=== PATIENT | male | born 1935 | race Caucasian/White ===

== ENCOUNTER 2017-10-11 17:17 | Emergency (ER) | payer MEDICARE, OTHER ==
[~2017-10-11] VITALS: Ht 180.3 cm; Wt 70.8 kg
== END 2017-10-11 19:20 | disposition home or self-care (01) ==
LOC: FSED 17:17
DX: M17.12 Unilateral primary osteoarthritis, left knee (principal); Z88.0 Allergy status to penicillin; R03.0 Elevated blood-pressure reading, without diagnosis of hypertension; Z86.12 Personal history of poliomyelitis; C26.1 Malignant neoplasm of spleen
CPT/HCPCS: 99284

== ENCOUNTER 2018-09-13 19:25 | Inpatient (IN) | payer MEDICARE, OTHER ==
[~2018-09-13] VITALS: Ht 175.3 cm; Wt 93.4 kg
--- OUTSIDE RECORDS SUMMARY | 2018-09-13 19:29 | XMS REPORT | Continuity of Care Document ---
Author Author [facility] Address Unknown Phone Unavailable Problems Problem Status Onset Date Classification Date Reported Comments Source Medications Medication Details Route Status Patient Instructions Ordering Provider Order Date Source Allergies, Adverse Reactions, Alerts Substance Category Reaction Severity Reaction type Status Date Reported Comments Source Penicillin SWELLING Mild Allergy to Substance Active 06/17/[address] [facility] Immunizations Immunization Date Given Site Status Last Updated Comments Source Results Order Name Results Value Reference Range Date Interpretation Comments Source Vital Signs Vital Sign Value Date Comments Source Encounters Location Location Details Encounter Type Encounter Number Reason For Visit Attending Provider ADM Date DC Date Status Source Departed Emergency Room [id number] MARIANA VERMA MD 10/11/2017 10/11/[address] [facility] Procedures Procedure Code Date Perfomer Comments Source
--- OUTSIDE RECORDS SUMMARY | 2018-09-13 19:29 | XMS REPORT ---
Author [facility] Address Unknown Phone Unavailable Care Team Providers Care Stage Set Up Worker Name Role Phone Unavailable Unavailable Payers Payer Name Policy Type Policy Number Effective Date Expiration Date Problems This patient has no known problems. Allergies, Adverse Reactions, Alerts Allergy Name Allergy Type Status Severity Reaction(s) Onset Date Inactive Date Treating Clinician Comments No Known Allergies DA Active U 2018-03-25 00:00:00 Medications This patient has no known medications. Encounters Start Date/Time End Date/Time Encounter Type Admission Type Attending Clinicians Care Facility Care Department Encounter ID 2018-08-13 11:23:54 Outpatient [facility] [id number] 2018-08-12 00:31:00 2018-08-11 19:54:00 Inpatient [id number]
--- OUTSIDE RECORDS SUMMARY | 2018-09-13 19:29 | XMS REPORT | Clinical Summary ---
Author Author [facility] Organization [facility] Address Unknown Phone Unavailable Care Team Providers Care Commercial Credit Lead Name Role Phone Ernesto Leong MD PCP Allergies Comments Active Allergy Reactions Severity Noted Date Penicillins Hives 07/23/2015 Chills Rituximab Other (See Low 02/16/2016 Comments) Listlessness, low energy/malaise Sulfamethoxazole-Trimetho Other (See 03/21/2017 prim Comments) Medications End Date Status Medication Sig Dispensed Refills Start Date 05/21/2018 Discontinued ipratropium-albuterol Take 3 mL by 0 (DUO-NEB) 0.5-2.5 mg/mL nebulization nebulizer every 4 (four) hours as needed for wheezing. 05/21/2018 Discontinued nystatin (MYCOSTATIN) Take 500,000 0 100,000 unit/mL Units by suspension mouth every 6 (six) hours. Swish in mouth 05/21/2018 Discontinued morPHINE 4 mg/mL Infuse 4 mg 0 injection into a venous catheter every 6 (six) hours as needed for severe pain. 05/21/2018 Discontinued acetaminophen (TYLENOL) Take 650 mg 0 325 MG tablet by mouth every 6 (six) hours as needed for fever. 05/21/2018 Discontinued ondansetron in dextrose Infuse 4 mg 0 solution into a venous catheter every 6 (six) hours as needed. 05/21/2018 Discontinued potassium chloride Take 20 mEq 0 (KLOR-CON) 20 mEq packet by mouth daily as needed. 05/21/2018 Discontinued vancomycin 1 gram/250 mL Infuse 1,000 0 solution mg into a venous catheter every 12 (twelve) hours. 05/21/2018 Discontinued acetylcysteine (MUCOMYST) Take 400 mg 0 100 mg/mL (10 %) oral by mouth solution every 6 (six) hours. neb 05/21/2018 Discontinued [id number] Infuse 3.375 0 extrs (ZOSYN) 3.375 g into a gram/50 mL IVPB venous catheter every 8 (eight) hours. 06/03/2018 acetaminophen (TYLENOL) Take 2 0 325 MG tablet tablets (650 9 mg total) by mouth every 6 (six) hours as needed for fever for up to 30 days. 06/03/2018 ondansetron ODT Take 1 tablet 0 (ZOFRAN-ODT) 4 MG (4 mg total) 9 disintegrating tablet by mouth every 8 (eight) hours as needed for nausea or vomiting for up to 30 days. 05/14/2018 nystatin (MYCOSTATIN) Take 5 mL 0 100,000 unit/mL (500,000 9 suspension Units total) by mouth 4 (four) times a day for 10 days. Swish in mouth 05/09/2018 Discontinued tamsulosin (FLOMAX) 0.4 Take 1 30 capsule 0 mg capsule capsule (0.4 9 mg total) by mouth daily for 30 days. 06/03/2018 ipratropium-albuterol Take 3 mL by 0 (DUO-NEB) 0.5-2.5 mg/mL nebulization 9 nebulizer every 4 (four) hours as needed for wheezing for up to 30 days. 06/03/2018 enoxaparin (LOVENOX) 40 Inject 0.4 mL 12 mL 0 mg/0.4 mL syringe (40 mg total) 9 under the skin daily for 30 days. 06/03/2018 acetylcysteine (MUCOMYST) Take 4 mL by 0 200 mg/mL (20 %) nebulization 9 nebulizer solution 2 (two) times a day for 30 days. 06/03/2018 oxymetazoline (AFRIN) 2 sprays into 0 0.05 % nasal spray each nostril 9 2 (two) times a day as needed for congestion (for nose bleeds) for up to 30 days. 06/03/2018 zinc oxide-cod liver oil Apply 0 (DESITIN) 40 % paste topically 3 9 (three) times a day for 30 days. 06/04/2018 lidocaine (LIDODERM) 5 % Place 1 patch 30 patch 0 on the skin 9 daily for 30 days. Remove & Discard patch within 12 hours or as directed by 06/08/2018 tamsulosin (FLOMAX) 0.4 Take 1 60 capsule 0 mg capsule capsule (0.4 9 mg total) by mouth 2 (two) times a day for 30 days. 05/09/2018 silver nitrate 75-25 % Apply 0 applicators topically 9 once for 1 dose. 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 Last Filed Vital Signs Time Taken Vital Sign Reading 05/21/2018 4:07 PM [employer] Blood Pressure 109/53 05/21/2018 4:07 PM [employer] Pulse 94 05/21/2018 4:07 PM [employer] Temperature 36.7 C (98.1 F) 05/21/2018 4:07 PM [employer] Respiratory Rate 16 05/21/2018 4:07 PM [employer] Oxygen Saturation 96% - Inhaled Oxygen - Concentration 04/10/2018 12:06 PM [employer] Weight 70.5 kg (155 lb 8 oz) 04/10/2018 12:06 PM [employer] Height 180.3 cm (5' 11") 04/10/2018 12:06 PM [employer] Body Mass Index 21.69 Plan of Treatment Health Maintenance Due Date Last Done Comments SHINGLES VACCINES (#1) 1983 65+ PNEUMOCOCCAL VACCINE 1998 (1 of 2 - PCV13) PNEUMOCOCCAL 1998 POLYSACCHARIDE VACCINE AGE 65 AND OVER INFLUENZA VACCINE 11/29/2018 Implants Device Identifier Shelf Expiration Date Model / Serial / Lot Implanted Type Area Manufactur er [id number] / / Cook Celect [employer] Navalign Vascular N/A: N/A Watch-Sites Uniset Vena Cava Filter - Filter PERIPHERAL [id number] INTERVENTI Implanted: 04/11/2018 (Quantity not ON on file) Procedures Comments Procedure Name Priority Date/Time Associated Diagnosis HC COMPLETE BLD COUNT Routine 05/21/2018 W/AUTO DIFF 7:40 AM [employer] CBC WITH PLATELET AND Routine 05/15/2018 DIFFERENTIAL 6:00 AM [employer] ESTIMATED GFR Routine 05/15/2018 5:30 AM [employer] BASIC METABOLIC PANEL Routine 05/15/2018 5:30 AM [employer] HC COMPLETE BLD COUNT Routine 05/14/2018 W/AUTO DIFF 8:10 PM [employer] XR CHEST 1 VW PORTABLE Routine 05/10/2018 12:55 PM [employer] PREALBUMIN LEVEL Routine 05/09/2018 4:00 AM [employer] C-REACTIVE PROTEIN Routine 05/09/2018 4:00 AM [employer] SEDIMENTATION RATE Routine 05/09/2018 4:00 AM [employer] HEMOGLOBIN & HEMATOCRIT Routine 05/09/2018 4:00 AM [employer] PARTIAL THROMBOPLASTIN Routine 05/09/2018 TIME (PTT) 4:00 AM [employer] ESTIMATED GFR Routine 05/08/2018 3:18 AM [employer] HC COMPLETE BLD COUNT Routine 05/08/2018 W/AUTO DIFF 3:18 AM [employer] BASIC METABOLIC PANEL Routine 05/08/2018 3:18 AM [employer] POC GLUCOSE Routine 05/04/2018 9:14 PM [employer] ESTIMATED GFR Routine 05/04/2018 6:20 AM [employer] HC COMPLETE BLD COUNT Routine 05/04/2018 W/AUTO DIFF 6:20 AM [employer] BASIC METABOLIC PANEL Routine 05/04/2018 6:20 AM [employer] CONSULT TO OSTOMY CARE Routine 05/01/2018 NURSE 7:00 PM [employer] ESTIMATED GFR Routine 04/30/2018 5:05 AM [employer] MAGNESIUM LEVEL Routine 04/30/2018 5:05 AM [employer] HC COMPLETE BLD COUNT Routine 04/30/2018 W/AUTO DIFF 5:05 AM [employer] BASIC METABOLIC PANEL Routine 04/30/2018 5:05 AM [employer] CLOSTRIDIUM DIFFICILE Routine 04/28/2018 TOXIN 5:50 PM [employer] XR CHEST 1 VW PORTABLE Routine 04/25/2018 3:55 PM [employer] HC COMPLETE BLD COUNT Routine 04/23/2018 W/AUTO DIFF 5:35 AM [employer] ESTIMATED GFR Routine 04/23/2018 4:00 AM [employer] PHOSPHORUS LEVEL Routine 04/23/2018 4:00 AM [employer] MAGNESIUM LEVEL Routine 04/23/2018 4:00 AM [employer] BASIC METABOLIC PANEL Routine 04/23/2018 4:00 AM [employer] HC COMPLETE BLD COUNT Routine 04/21/2018 W/AUTO DIFF 4:35 AM [employer] ESTIMATED GFR Routine 04/21/2018 4:00 AM [employer] PHOSPHORUS LEVEL Routine 04/21/2018 4:00 AM [employer] MAGNESIUM LEVEL Routine 04/21/2018 4:00 AM [employer] BASIC METABOLIC PANEL Routine 04/21/2018 4:00 AM [employer] POC GLUCOSE Routine 04/20/2018 1:31 AM [employer] ESTIMATED GFR Routine 04/19/2018 5:50 AM [employer] MAGNESIUM LEVEL Routine 04/19/2018 5:50 AM [employer] BASIC METABOLIC PANEL Routine 04/19/2018 5:50 AM [employer] HC COMPLETE BLD COUNT Routine 04/19/2018 W/AUTO DIFF 5:50 AM [employer] XR CHEST 1 VW PORTABLE Routine 04/18/2018 10:27 AM [employer] ESTIMATED GFR Routine 04/18/2018 4:55 AM [employer] VANCOMYCIN LEVEL, RANDOM Routine 04/18/2018 4:55 AM [employer] MAGNESIUM LEVEL Routine 04/18/2018 4:55 AM [employer] BASIC METABOLIC PANEL Routine 04/18/2018 4:55 AM [employer] HC COMPLETE BLD COUNT Routine 04/18/2018 W/AUTO DIFF 4:55 AM [employer] POC GLUCOSE Routine 04/17/2018 3:40 PM [employer] POC GLUCOSE Routine 04/17/2018 12:19 PM [employer] POC GLUCOSE Routine 04/17/2018 7:28 AM [employer] RESPIRATORY PATHOGEN Routine 04/17/2018 PANEL 6:55 AM [employer] ESTIMATED GFR Routine 04/17/2018 4:00 AM [employer] PHOSPHORUS LEVEL Routine 04/17/2018 4:00 AM [employer] MAGNESIUM LEVEL Routine 04/17/2018 4:00 AM [employer] BASIC METABOLIC PANEL Routine 04/17/2018 4:00 AM [employer] ESTIMATED GFR Routine 04/17/2018 12:00 AM [employer] B NATRIURETIC PEPTIDE Routine 04/17/2018 12:00 AM [employer] HC COMPLETE BLD COUNT Routine 04/17/2018 W/AUTO DIFF 12:00 AM [employer] MAGNESIUM LEVEL Routine 04/17/2018 12:00 AM [employer] BASIC METABOLIC PANEL Routine 04/17/2018 12:00 AM [employer] URINALYSIS SCREEN AND Routine 04/17/2018 MICROSCOPY, WITH REFLEX 12:00 AM [employer] TO CULTURE URINE CULTURE Routine 04/17/2018 12:00 AM [employer] BLOOD CULTURE, AEROBIC & Routine 04/16/2018 ANAEROBIC 6:15 PM [employer] BLOOD CULTURE, AEROBIC & Routine 04/16/2018 ANAEROBIC 6:15 PM [employer] HC COMPLETE BLD COUNT Routine 04/16/2018 W/AUTO DIFF 5:10 PM [employer] POC GLUCOSE Routine 04/16/2018 3:30 PM [employer] XR CHEST 1 VW PORTABLE Routine 04/16/2018 2:37 PM [employer] ESTIMATED GFR Routine 04/16/2018 4:00 AM [employer] BASIC METABOLIC PANEL Routine 04/16/2018 4:00 AM [employer] IONIZED CALCIUM STAT 04/14/2018 8:35 AM [employer] MAGNESIUM LEVEL STAT 04/14/2018 8:35 AM [employer] POTASSIUM LEVEL STAT 04/14/2018 8:35 AM [employer] XR CERVICAL SPINE 1 VW STAT 04/13/2018 10:08 PM [employer] POC GLUCOSE Routine 04/13/2018 8:27 AM [employer] ESTIMATED GFR Routine 04/13/2018 5:45 AM [employer] MAGNESIUM LEVEL Routine 04/13/2018 5:45 AM [employer] BASIC METABOLIC PANEL Routine 04/13/2018 5:45 AM [employer] HC COMPLETE BLD COUNT Routine 04/13/2018 W/AUTO DIFF 5:45 AM [employer] URINALYSIS SCREEN AND Routine 04/12/2018 MICROSCOPY, WITH REFLEX 8:00 PM [employer] TO CULTURE URINE CULTURE Routine 04/12/2018 8:00 PM [employer] FL MODIFIED BARIUM Routine 04/12/2018 SWALLOW 4:02 PM [employer] US DUPLEX VENOUS UPPER Routine 04/12/2018 EXTREMITY LEFT 9:40 AM [employer] HC COMPLETE BLD COUNT Routine 04/12/2018 W/AUTO DIFF 4:20 AM [employer] PARTIAL THROMBOPLASTIN Routine 04/12/2018 TIME (PTT) 4:20 AM [employer] PROTHROMBIN TIME WITH INR Routine 04/12/2018 4:20 AM [employer] ESTIMATED GFR Routine 04/12/2018 4:00 AM [employer] MAGNESIUM LEVEL Routine 04/12/2018 4:00 AM [employer] BASIC METABOLIC PANEL Routine 04/12/2018 4:00 AM [employer] IR IVC FILTER PLACEMENT Routine 04/11/2018 4:18 PM [employer] B NATRIURETIC PEPTIDE Routine 04/11/2018 5:45 AM [employer] HC COMPLETE BLD COUNT Routine 04/11/2018 W/AUTO DIFF 5:45 AM [employer] PARTIAL THROMBOPLASTIN Routine 04/11/2018 TIME (PTT) 5:45 AM [employer] PROTHROMBIN TIME WITH INR Routine 04/11/2018 5:45 AM [employer] ESTIMATED GFR Routine 04/11/2018 4:00 AM [employer] PHOSPHORUS LEVEL Routine 04/11/2018 4:00 AM [employer] MAGNESIUM LEVEL Routine 04/11/2018 4:00 AM [employer] BASIC METABOLIC PANEL Routine 04/11/2018 4:00 AM [employer] MANUAL DIFFERENTIAL Routine 04/10/2018 4:37 AM [employer] ESTIMATED GFR Routine 04/10/2018 4:37 AM [employer] PARTIAL THROMBOPLASTIN Routine 04/10/2018 TIME (PTT) 4:37 AM [employer] PROTHROMBIN TIME WITH INR Routine 04/10/2018 4:37 AM [employer] PHOSPHORUS LEVEL Routine 04/10/2018 4:37 AM [employer] MAGNESIUM LEVEL Routine 04/10/2018 4:37 AM [employer] B NATRIURETIC PEPTIDE Routine 04/10/2018 4:37 AM [employer] BASIC METABOLIC PANEL Routine 04/10/2018 4:37 AM [employer] CBC WITH PLATELET AND Routine 04/10/2018 DIFFERENTIAL 4:37 AM [employer] FIBRINOGEN Routine 04/10/2018 4:37 AM [employer] D-DIMER Routine 04/10/2018 4:37 AM [employer] FL MODIFIED BARIUM Routine 04/09/2018 SWALLOW 11:07 AM [employer] URINALYSIS SCREEN AND Routine 04/09/2018 MICROSCOPY, WITH REFLEX 10:00 AM [employer] TO CULTURE GRAM STAIN Routine 04/09/2018 10:00 AM [employer] URINE CULTURE Routine 04/09/2018 10:00 AM [employer] US DUPLEX VENOUS LOWER Routine 04/08/2018 EXTREMITY BILATERAL 5:52 PM [employer] MRA NECK WO CONTRAST Routine 04/08/2018 3:30 PM [employer] MRA HEAD WO CONTRAST Routine 04/08/2018 3:12 PM [employer] MRI BRAIN WO CONTRAST Routine 04/08/2018 3:[address] HEAD WO CONTRAST STAT 04/08/2018 9:16 AM [employer] XR CHEST 1 VW PORTABLE Routine 04/08/2018 6:06 AM [employer] HC COMPLETE BLD COUNT Routine 04/08/2018 W/AUTO DIFF 3:01 AM [employer] ESTIMATED GFR Routine 04/08/2018 12:02 AM [employer] PROTHROMBIN TIME WITH INR Routine 04/08/2018 12:02 AM [employer] PARTIAL THROMBOPLASTIN Routine 04/08/2018 TIME (PTT) 12:02 AM [employer] CBC WITH PLATELET AND Routine 04/08/2018 DIFFERENTIAL 12:02 AM [employer] BASIC METABOLIC PANEL Routine 04/08/2018 12:[address] HEAD EXTERNAL STUDY Routine 04/04/2018 5:37 PM [employer] MRI HEAD EXTERNAL STUDY Routine 03/28/2018 2:[address] HEAD EXTERNAL STUDY Routine 03/25/2018 10:54 AM [employer] after 09/12/2017 Results * CBC with platelet and differential (05/21/2018 7:40 AM [employer]) Only the most recent of 18 results within the time period is included. WBC 3.59 (L) 4.50 - 11.00 k/uL [facility] RBC 3.35 (L) 4.40 - 6.00 m/uL [facility] HGB 11.1 (L) 14.0 - 18.0 g/dL [facility] HCT 34.5 (L) 41.0 - 51.0 % [facility] MCV 103.0 (H) 82.0 - 100.0 fL [facility] MCH 33.1 27.0 - 34.0 pg [facility] MCHC 32.2 31.0 - 37.0 g/dL [facility] RDW - SD 60.1 (H) 37.0 - 55.0 fL [facility] MPV 10.4 8.8 - 13.2 fL [facility] Platelet count 109 (L) 150 - 400 k/uL [facility] Nucleated RBC 0.00 /100 WBC [facility] Neutrophils 64.1 39.0 - 69.0 % [facility] Lymphocytes 23.4 (L) 25.0 - 45.0 % [facility] Monocytes 6.1 0.0 - 10.0 % [facility] Eosinophils 2.8 0.0 - 5.0 % [facility] Basophils 1.1 (H) 0.0 - 1.0 % [facility] Immature granulocytes 2.5 (H)Comment: "Immature 0.0 - 1.0 % [facility] granulocytes" (promyelocytes, HOSPITAL myelocytes, metamyelocytes) Specimen Blood Performing Organization Address City/[facility]/Zipcode Phone Number [facility] [place] [address] PATHOLOGY AND GENOMIC MEDICINE [address] * Estimated GFR (05/15/2018 5:30 AM [employer]) Only the most recent of 16 results within the time period is included. Estimated GFR >=90 mL/min/1.73 m2 [facility] Comment: HOSPITAL CatergoryUnitsInte rpretation G1 >=90 Normal or high G2 60-89Mildly decreased [id number] Mildly to moderately decreased [id number] Moderately to severely decreased G4 15-29Severely decreased G5 <15Kidney failure The eGFR was calculated using the Chronic Kidney Disease Epidemiology Collaboration (CKD-EPI) equation. Interpretation is based on recommendations of the National Kidney Foundation-Kidney Disease Outcomes Quality Initiative (NKF-KDOQI) published in 2014. Specimen Plasma specimen Performing Organization Address City/State/Zipcode Phone Number [facility] DEPARTMENT OF [address] [place] [address] PATHOLOGY AND GENOMIC MEDICINE [address] * Basic metabolic panel (05/15/2018 5:30 AM [employer]) Only the most recent of 16 results within the time period is included. Sodium 133 (L) 135 - 148 mEq/L [facility] Potassium 3.9 3.5 - 5.0 mEq/L [facility] Chloride 100 98 - 112 mEq/L [facility] CO2 23 (L) 24 - 31 mEq/L [facility] Anion gap 10@ANIO 7 - 15 mEq/L [facility] BUN 11 8 - 23 mg/dL [facility] Creatinine 0.51 (L) 0.70 - 1.20 mg/dL [facility] Glucose 100 (H) 65 - 99 mg/dL [facility] Calcium 9.2 8.8 - 10.2 mg/dL [facility] Specimen Plasma specimen Performing Organization Address City/[facility]ode Phone Number [facility] DEPARTMENT OF [address] [place] [address] PATHOLOGY AND GENOMIC MEDICINE [address] * XR Chest 1 Vw Portable (05/10/2018 12:55 PM [employer]) Only the most recent of 5 results within the time period is included. Narrative Performed At EXAMINATION:[facility]ST [facility]:Shortness of breath COMPARISON:Most Recent Prior at [facility] IMPRESSION: Heart is normal in size. No focal infiltrates. Minimal basilar scarring or atelectasis. No pneumothorax or effusion. Diffuse osteopenia. [facility]-[id number] Procedure Note Interface, Radiology Results Incoming - 05/10/2018 1:08 PM [employer] EXAMINATION: XR CHEST 1 VW PORTABLE CLINICAL HISTORY: Shortness of breath COMPARISON: Most Recent Prior at [facility] IMPRESSION: Heart is normal in size. No focal infiltrates. Minimal basilar scarring or atelectasis. No pneumothorax or effusion. Diffuse osteopenia. [facility]-[id number] Performing Organization Address [facility] Centercode Phone Number [facility] [address] [place] [address] * Hemoglobin & hematocrit (05/09/2018 4:00 AM [employer]) HGB 11.1 (L) 14.0 - 18.0 g/dL [facility] HCT 33.9 (L) 41.0 - 51.0 % [facility] Specimen Blood Performing Organization Address City/[facility]/Zipcode Phone Number [facility] DEPARTMENT OF [address] [place] [id number] PATHOLOGY AND GENOMIC MEDICINE [address] * Partial thromboplastin time, activated (05/09/2018 4:00 AM [employer]) Only the most recent of 5 results within the time period is included. PTT 28.6 23.0 - 36.0 sec [facility] Comment: HOSPITAL PTT therapeutic range for unfractionated heparin is 61.0-112.0 seconds which corresponds to Anti-Xa 0.3-0.7 U/ml. Specimen Blood Performing Organization Address City/State/Zipcode Phone Number [facility] [place] [address] PATHOLOGY AND [facility] MEDICINE [address] * Sedimentation rate (05/09/2018 4:00 AM [employer]) Sedimentation rate 12 (H) 0 - 10 mm/hr [facility] Specimen Blood Performing Organization Address City/[facility] Centercode Phone Number [facility] [place] [address] [address] * C-reactive protein (05/09/2018 4:00 AM [employer]) CRP 0.76 (H) 0.00 - 0.50 mg/dL [facility] Specimen Plasma specimen Performing Organization Address City/[facility] Centercode Phone Number [facility] [place] [address] PATHOLOGY AND [facility] [address] * Prealbumin level (05/09/2018 4:00 AM [employer]) Prealbumin 15 (L) 16 - 32 mg/dL [facility] Specimen Serum Performing Organization Address [facility] Phone Number [facility] [place] [address] PATHOLOGY AND [facility]IC[facility] [address] * POC glucose (05/04/2018 9:14 PM [employer]) Only the most recent of 7 results within the time period is included. POC glucose 108 (H) 65 - 99 mg/dL [facility] Comment: [facility] Notified RN Meter ID: [id number] Supervisor Claims: Manda Sun Performing Organization Address City/[facility]/Zipcode Phone Number [facility] [place] [address] PATHOLOGY AND GENOMIC MEDICINE [address] * Magnesium level (04/30/2018 5:05 AM [employer]) Only the most recent of 12 results within the time period is included. Magnesium 1.9 1.6 - 2.4 mg/dL [facility] Specimen Plasma specimen Performing Organization Address City/[facility] Centercode Phone Number [facility] [place] [address] PATHOLOGY AND [facility] [address] * C difficile toxin (04/28/2018 5:50 PM [employer]) Clostridium difficile No Clostridium difficle toxin [facility] Comment: Specimen Information Specimen Source: Stool Specimen Site: Not otherwise specified Specimen Stool - Not otherwise specified Performing Organization Address City/[facility] Centercode Phone Number [facility] [place] [address] PATHOLOGY AND [facility] [address] * Phosphorus level (04/23/2018 4:00 AM [employer]) Only the most recent of 5 results within the time period is included. Phosphorus 2.9 2.4 - 4.5 mg/dL [facility] Specimen Plasma specimen Performing Organization Address City/[facility] Centercode Phone Number [facility] [place] [address] PATHOLOGY AND [facility] MED[facility] [address] * Vancomycin level, random (04/18/2018 4:55 AM [employer]) Vancomycin, random 12.0 ug/mL [facility] Specimen Serum Performing Organization Address [facility] Phone Number [facility] [place] [address] PATHOLOGY AND GENOMIC MEDICINE [address] * Respiratory pathogen panel (04/17/2018 6:55 AM [employer]) Respiratory pathogen Negative for all pathogens [facility] panel tested: HOSPITAL Negative for Adenovirus Negative for Coronavirus HKU1 Negative for Coronavirus NL63 Negative for Coronavirus 229E Negative for Coronavirus OC43 Negative for Human Metapneumovirus Negative for Rhinovirus/Enterovirus Negative for Influenza A Negative for Influenza A/H1 Negative for Influenza A/H3 Negative for Influenza A/H1-2009 Negative for Influenza B Negative for Parainfluenza Virus 1 Negative for Parainfluenza Virus 2 Negative for Parainfluenza Virus 3 Negative for Parainfluenza Virus 4 Negative for Respiratory Syncytial Virus Negative for Bordetella pertussis Negative for Chlamydophila pneumoniae Negative for Mycoplasma pneumoniae This real-time PCR assay detects the presence of nucleic acids (RNA or DNA) for the respiratory pathogens listed. A result of "Not-detected" does not exclude the possibility of the presence of one or more pathogens at concentrations less than the detectable limits of the assay. Comment: Specimen Information Specimen Source: Nares Specimen Site: Not specified Specimen Nares - Not specified Performing Organization Address City/[facility] [place] [address] PATHOLOGY AND GENOMIC MEDICINE [address] * Urinalysis screen and microscopy, with reflex to culture (04/17/2018 12:00 AM SUPERVISOR SPEECH) Only the most recent of 3 results within the time period is included. Specimen site Clean catch [facility] Color, UA Yellow [facility] Appearance, UA Clear [facility] Specific gravity, UA 1.013 1.001 - 1.035 [facility] pH, UA 6.0 5.0 - 8.5 [facility] Protein, UA Negative Negative [facility] Glucose, UA Negative Negative [facility] Ketones, UA Negative Negative [facility] Bilirubin, UA Negative Negative [facility] Blood, UA Negative Negative [facility] Nitrite, UA Negative Negative [facility] Urobilinogen, UA 4.0 (A) <2.0 [facility] Leukocyte esterase, UA Negative Negative [facility] Epithelial cells, UA 1 /HPF [facility] WBC, UA 3 (H) 0 - 1 /HPF [facility] RBC, UA 2 0 - 5 /HPF [facility] Bacteria, UA None seen None seen [facility] Yeast, UA Few (A) [facility] Yeast with pseudohyphae, None seen [facility] Specimen Urine Performing Organization Address City/[facility] [place] [address] PATHOLOGY AND GENOMIC MEDICINE [address] * Urine culture (04/17/2018 12:00 AM SUPERVISOR SPEECH) Only the most recent of 3 results within the time period is included. Urine culture SEE COMMENTComment: [facility] Bacteriuria screen negative. HOSPITAL Performing Organization Address City/[facility] Cent[facility]ode Phone Number [facility] [place] [address] PATHOLOGY AND [facility] MEDICINE [address] * B natriuretic peptide (04/17/2018 12:00 AM SUPERVISOR SPEECH) Only the most recent of 3 results within the time period is included. BNP 243 (H) 0 - 100 pg/mL [facility] Specimen Blood Performing Organization Address [facility] Centercode Phone Number [facility] [place] [address] PATHOLOG[address] * Blood culture, aerobic & anaerobic (04/16/2018 6:15 PM SUPERVISOR SPEECH) Only the most recent of 2 results within the time period is included. Blood culture isolate No growth after 5 days of [facility] incubation. HOSPITAL Comment: Specimen Information Specimen Source: Blood Specimen Site: Antecubital, right Specimen Blood - Antecubital, right Performing Organization Address [facility] Centercowv Phone Number [facility] [place] [address] PATHOLOGY [address] * Potassium level (04/14/2018 8:35 AM SUPERVISOR SPEECH) Potassium 4.7 3.5 - 5.0 mEq/L [facility] Specimen Plasma specimen Performing Organization Address [facility] Centercode Phone Number [facility] [place] [address] PATHOLOGY [address] * Ionized calcium (04/14/2018 8:35 AM SUPERVISOR SPEECH) pH 7.48 [facility] Ionized calcium 0.98 (L) 1.11 - 1.32 mmol/L [facility] Specimen Plasma specimen Performing Organization Address [facility] Centercode Phone Number [facility] [place] [address] PATHOLOGY AND [facility] MEDICINE [address] * XR Cervical Spine 1 Vw (04/13/2018 10:08 PM SUPERVISOR SPEECH) Narrative Performed At EXAMINATION:[facility]: Neck paininitial exam COMPARISON: None. FINDINGS: A single frontal view of the cervical spine obtained. Multilevel degenerative changes. No obvious fracture. IMPRESSION: Single frontal view demonstrating multilevel degenerative change. No obvious fracture. [facility]-[id number] Procedure Note Interface, Radiology Results Incoming - 04/13/2018 10:18 PM SUPERVISOR SPEECH EXAMINATION: XR CERVICAL SPINE 1 VW CLINICAL HISTORY: Neck pain initial exam COMPARISON: None. FINDINGS: A single frontal view of the cervical spine obtained. Multilevel degenerative changes. No obvious fracture. IMPRESSION: Single frontal view demonstrating multilevel degenerative change. No obvious fracture. [facility]-[id number] Performing Organization Address [facility] Phone Number [facility] [address] [place] [address] * [place] Modified Barium Swallow (04/12/2018 4:02 PM SUPERVISOR SPEECH) Only the most recent of 2 results within the time period is included. Narrative Performed At EXAMINATION:[place] MODIFIED BARIUM SWALLOW [facility] CLINICAL HISTORY:Dysphagiaknown cause COMPARISON:April 09, 2018 Fluoroscopy time: 2.3 minutes FINDINGS: The patient was given multiple consistencies of barium. The swallowing act was normal. There is silent aspiration with thin consistency barium. Laryngeal penetration was seen with nectar consistency. IMPRESSION: Silent aspiration with thin liquids. Please refer to Speech Pathology report for further details. [facility]-[id number] Procedure Note Interface, Radiology Results Incoming - 04/12/2018 6:03 PM SUPERVISOR SPEECH EXAMINATION: [place] MODIFIED BARIUM SWALLOW CLINICAL HISTORY: Dysphagia known cause COMPARISON: April 09, 2018 Fluoroscopy time: 2.3 minutes FINDINGS: The patient was given multiple consistencies of barium. The swallowing act was normal. There is silent aspiration with thin consistency barium. Laryngeal penetration was seen with nectar consistency. IMPRESSION: Silent aspiration with thin liquids. Please refer to Speech Pathology report for further details. [facility]-[id number] Performing Organization Address [facility] Phone Number [facility] [address] [place] [address] * Us duplex venous upper extremity (04/12/2018 9:40 AM SUPERVISOR SPEECH) Narrative Performed At [facility] Vascular Ultrasound Laboratory Upper Extremity Venous Report [address] [facility] [address], [place] [address] Pat.Name:LORI REID Pat.ID:[id number] .Date: 04/12/2018Refer.MD:TYREE CABRERA MD Exam Time: 9:25:00 AMStudy Type:UE Venous DOBAge:1935,82Y Sex: MALE Sonogrphr: Pranay Beavers, RDMS, RVTPat. Stat.:Inpatient Room:[place] [address] TapeVol: , CPT - 4: 01027 Echo Event ID:[id number] Order ID:[id number] Reason for Study:Left upper extremity redness of the distal forearm. 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 Procedures:Colorflow, Grayscale/2D, Pulsed wave Doppler Race:C SUMMARY: DUPLEX SCAN OBSERVATIONS Right Left IJ____ Normal SubclavianNormal Normal Axillary____ Normal Brachial____ Normal Basilic____ Normal Cephalic____ Not Visualized Cephalic ForearmObstructed/Focal LEFT: Focal non-compressibility with soft echogenic material noted within the cephalic vein at the distal forearm/wrist; Doppler signals are absent. Otherwise, all other visualized veins demonstrate normal compressibility with no evidence of echogenic material in the lumen; colorflow is normal. PRELIMINARY FINDINGS 1.Superficial, focal venous thrombosis noted in the left distal cephalic vein at the wrist. 2.Technically difficult study due to bony anatomy and lethargic state. PHYSICIAN INTERPRETATION Venous examination of the left upper extremity and neck demonstrated superficialvenous thrombosis in the left distal cephalic vein at the wrist. Signed 04/12/2018 11:22 AM Baldomero Urena MD, RPVI Procedure Note Interface, Radiology Results In - 04/12/2018 11:22 AM [facility] Vascular Ultrasound Laboratory Upper Extremity Venous Report [id number] [address] [facility].Name: LORI REID Pat.ID: [id number] .Date: 04/12/2018 Refer.MD: TYREE CABRERA MD Exam Time: 9:25:00 AM Study Type:UE Venous Age: 1 1935,82Y Sex: MALE Sonogrphr: Pranay Beavers RDMS, RVT Pat. Stat.:Inpatient Room: [place] [address] Tape Vol: , CPT - 4: 29059 Echo Event ID:[id number] Order ID: [id number] Reason for Study:Left upper extremity redness of the distal forearm. 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 Procedures:Colorflow, Grayscale/2D, Pulsed wave Doppler Race: C SUMMARY: DUPLEX SCAN OBSERVATIONS Right Left IJ ____ Normal Subclavian Normal Normal Axillary ____ Normal Brachial ____ Normal Basilic ____ Normal Cephalic ____ Not Visualized Cephalic Forearm Obstructed/Focal LEFT: Focal non-compressibility with soft echogenic material noted within the cephalic vein at the distal forearm/wrist; Doppler signals are absent. Otherwise, all other visualized veins demonstrate normal compressibility with no evidence of echogenic material in the lumen; colorflow is normal. PRELIMINARY FINDINGS 1. Superficial, focal venous thrombosis noted in the left distal cephalic vein at the wrist. 2. Technically difficult study due to bony anatomy and lethargic state. PHYSICIAN INTERPRETATION Venous examination of the left upper extremity and neck demonstrated superficial venous thrombosis in the left distal cephalic vein at the wrist. Signed 04/12/2018 11:22 AM Baldomero Urena MD, RPVI Performing Organization Address City/State/Zipcode Phone Number [facility] [address] [place] [address] * Prothrombin time with INR (04/12/2018 4:20 AM SUPERVISOR SPEECH) Only the most recent of 4 results within the time period is included. Prothrombin time 15.8 (H) 11.5 - 14.5 sec [facility] INR 1.3 [facility] Comment: HOSPITAL The International Normalized Ratio (INR) is a therapeutic monitoring tool for patients who are stable on oral anticoagulant therapy. An INR of 2.0-3.0 is suggested for deep vein thrombosis/pulmonary embolism. Specimen Blood Performing Organization Address City/State/Zipcode Phone Number [facility] DEPARTMENT OF [address] [place] [address] PATHOLOGY AND GENOMIC MEDICINE [facility] [address] [place] [address] HOSPITAL * IR IVC Filter Placement (04/11/2018 4:18 PM SUPERVISOR SPEECH) Narrative Performed At Procedure RADIANT 1. Inferior vena cavogram 2. Placement of a retrievable inferior vena cava filter Performing Radiologist Shamar Cruz MD Assistants None Anesthesia Type Lidocaine 1% was used for local anesthesia. Pre Procedure Diagnosis deep venous thrombosis. Anticoagulation is contraindicated. Post Procedure Diagnosis Status post inferior vena cava filter placement. Technique Written informed consent was obtained prior to the procedure. All elements of maximal sterile barrier technique were followed. The patient's right groin was sterilely prepared and draped in the routine manner. Lidocaine 1% was used for local anesthetic. Using real-time ultrasound guidance, a 21-gauge micropuncture needle was used to access the right common femoral vein. A 0.018 inch guidewire was advanced centrally under fluoroscopy. The needle was removed, and a micropuncture sheath system was then placed over the guidewire. The inner dilator and guidewire were then removed, and a 0.035 inch J-wire was advanced through the micropuncture sheath and into the inferior vena cava under fluoroscopy. The micropuncture sheath was removed and a 5-Slovak pigtail catheter was then placed over the guidewire and advanced into the low inferior vena cava. An inferior vena cavagram was then performed with injection of contrast. Exchange was then made for the delivery system for Celect retrievable inferior vena cava filter. Using the filter deployment device, the Celect filter was advanced, positioned, and deployed within the infrarenal inferior vena cava. The delivery sheath was removed and hemostasis was achieved with manual compression. The patient tolerated the procedure well. Radiation Dose: Ka,r=111 mGy Complications None Specimens Removed None Estimated Blood Loss Less than 1 mL Blood/Blood Products Administered None Grafts/Implants As described in the above report Findings 1. Ultrasound shows an anechoic and compressible right common femoral vein. 2. Inferior vena cavogram demonstrates a normal caliber inferior vena cava. There is no caval thrombus. Impression: Successful placement of a Celect retrievable inferior vena cava filter within the infrarenal inferior vena cava. [facility]-[id number] Procedure Note [facility], Radiology Results Incoming - 04/11/2018 5:42 PM SUPERVISOR SPEECH Procedure 1. Inferior vena cavogram 2. Placement of a retrievable inferior vena cava filter Performing Radiologist Shamar Cruz MD Assistants None Anesthesia Type Lidocaine 1% was used for local anesthesia. Pre Procedure Diagnosis deep venous thrombosis. Anticoagulation is contraindicated. Post Procedure Diagnosis Status post inferior vena cava filter placement. Technique Written informed consent was obtained prior to the procedure. All elements of maximal sterile barrier technique were followed. The patient's right groin was sterilely prepared and draped in the routine manner. Lidocaine 1% was used for local anesthetic. Using real-time ultrasound guidance, a 21-gauge micropuncture needle was used to access the right common femoral vein. A 0.018 inch guidewire was advanced centrally under fluoroscopy. The needle was removed, and a micropuncture sheath system was then placed over the guidewire. The inner dilator and guidewire were then removed, and a 0.035 inch J-wire was advanced through the micropuncture sheath and into the inferior vena cava under fluoroscopy. The micropuncture sheath was removed and a 5-Slovak pigtail catheter was then placed over the guidewire and advanced into the low inferior vena cava. An inferior vena cavagram was then performed with injection of contrast. Exchange was then made for the delivery system for Celect retrievable inferior vena cava filter. Using the filter deployment device, the Celect filter was advanced, positioned, and deployed within the infrarenal inferior vena cava. The delivery sheath was removed and hemostasis was achieved with manual compression. The patient tolerated the procedure well. Radiation Dose: Ka,r=111 mGy Complications None Specimens Removed None Estimated Blood Loss Less than 1 mL Blood/Blood Products Administered None Grafts/Implants As described in the above report Findings 1. Ultrasound shows an anechoic and compressible right common femoral vein. 2. Inferior vena cavogram demonstrates a normal caliber inferior vena cava. There is no caval thrombus. Impression: Successful placement of a Celect retrievable inferior vena cava filter within the infrarenal inferior vena cava. [facility]-[id number] Performing Organization Address City/[facility]/Zipcode Phone Number [facility] [address] [place] [address] * Manual differential (04/10/2018 4:37 AM SUPERVISOR SPEECH) Manual differential PERFORMED [facility] Neutrophils 74.0 (H) 39.0 - 69.0 % [facility] Lymphocytes 25.0 25.0 - 45.0 % [facility] Monocytes 1.0 0.0 - 10.0 % [facility] Eosinophils 0.0 0.0 - 5.0 % [facility] Basophils 0.0 0.0 - 1.0 % [facility] Metamyelocytes 0 % [facility] Promyelocytes 0 % [facility] Platelet slide review Decreased (A) [facility] Anisocytosis Moderate [facility] Polychromasia Moderate [facility] Ovalocytes Moderate [facility] Performing Organization Address City/[facility] Phone Number [facility] DEPARTMENT OF [address] [place] [address] PATHOLOGY AND GENOMIC MEDICINE [address] * Fibrinogen (04/10/2018 4:37 AM SUPERVISOR SPEECH) Fibrinogen 313 200 - 450 mg/dL [facility] Specimen Blood Performing Organization Address City/[facility] Phone Number [facility] DEPARTMENT OF [address] [place] [address] PATHOLOGY AND [facility] MEDICINE [address] * D-dimer (04/10/2018 4:37 AM SUPERVISOR SPEECH) D-dimer 14.49 (H) 0.00 - 0.40 ug/mL FEU [facility] Comment: HOSPITAL Units are ug/ml Fibrinogen Equivalent Unit. When combined with low clinical probability, D-dimer results of less than 0.5 ug/ml FEU have a good negativepredictive value in excluding PE or DVT. For D-dimer results greater than 0.5ug/ml FEU further testing is indicated if PE or DVT is suspectedclinically. Elevated D-dimer results have been reported in DVT, PE, and DIC cases and may indicate the presence of a clot. D-dimer results may be elevated due to old age, , inflammatory diseases, trauma, post-operative states, sepsis, and malignancies. Specimen Blood Performing Organization Address City/[facility]/Zipcode Phone Number [facility] DEPARTMENT OF [address] [place] [address] PATHOLOGY AND GENOMIC MEDICINE [facility] [address] [place] [address] * Gram stain (04/09/2018 10:00 AM SUPERVISOR SPEECH) Gram stain result No WBC's or organisms seen. [facility] Comment: HOSPITAL Specimen Information Specimen Source: Urine Specimen Site: [place] Specimen Urine - [place] Performing Organization Address [facility]/Zipcode Phone Number [facility] DEPARTMENT OF [address] [place] [address] PATHOLOGY AND GENOMIC MEDICINE [facility] [address] [place] [address] * Us duplex venous lower extremity (04/08/2018 5:52 PM SUPERVISOR SPEECH) Narrative Performed At [facility] Vascular Ultrasound Laboratory Lower Extremity Venous Report [address] [place] [address] Pat.Name:LORI REID Ariel Pat.ID:[id number] .Date: 04/08/2018 Refer.MD:TYREE CABRERA MD Exam Time: 5:18:00 PMStudy Type:LE Venous DOBAge:1935,82Y Sex: MALE Sonogrphr: Howard Almeida RVT Pat. Stat.:Inpatient Room:[id number]: , CPT - 4: 99368 Echo Event ID:[id number] Order ID:[id number] Reason for Study:Leg edema and immobility Procedures:Colorflow, Grayscale/2D, Pulsed wave Doppler Race:C SUMMARY: DUPLEX SCAN OBSERVATIONS Deep VeinsSuperficial Veins RightLeft RightLeft GSV (prox) NormalNormal CFV Partial/MobileNormal (above knee) Femoral Normal Normal GSV (dist) Normal Normal Profunda Normal Normal (below knee) Popliteal Normal Normal PT (prox) Normal NormalSSV Normal Not Visualized PT (dist) Normal Normal Peroneal Normal Normal RIGHT: There is partial mobile material observed within the common femoral vein. There is normal compressibility with no evidence of echogenic material noted within the lumen of the remaining visualized veins. LEFT:There is normal compressibility with no evidence of echogenic material noted within the lumen of the visualized veins. Colorflow and Doppler signals are normal. PRELIMINARY FINDINGS 1. Partial mobile thrombus in the right common femoral vein PHYSICIAN INTERPRETATION Venous examination of the both lower extremities demonstrated partial mobile thrombus in the right common femoral vein . Signed 04/08/2018 09:53 PM Baldomero Urena MD, RPVI Procedure Note Interface, Radiology Results In - 04/08/2018 9:53 PM [facility] Vascular Ultrasound Laboratory Lower Extremity Venous Report [address] [place] [address] Pat.Name: LORI REID Pat.ID: [id number] St.Date: 04/08/2018 Refer.MD: TYREE CABRERA MD Exam Time: 5:18:00 PM Study Type:LE Venous Age: 1 1935,82Y Sex: MALE Sonogrphr: Howard Almeida RVT Pat. Stat.:Inpatient Room: [address] Tape Vol: VB, CPT - 4: 26697 Echo Event ID:[id number] Order ID: [id number] Reason for Study:Leg edema and immobility Procedures:Colorflow, Grayscale/2D, Pulsed wave Doppler Race: C SUMMARY: DUPLEX SCAN OBSERVATIONS Deep Veins Superficial Veins Right Left Right Left GSV (prox) Normal Normal CFV Partial/Mobile Normal (above knee) Femoral Normal Normal GSV (dist) Normal Normal Profunda Normal Normal (below knee) Popliteal Normal Normal PT (prox) Normal Normal SSV Normal Not Visualized PT (dist) Normal Normal Peroneal Normal Normal RIGHT: There is partial mobile material observed within the common femoral vein. There is normal compressibility with no evidence of echogenic material noted within the lumen of the remaining visualized veins. LEFT:There is normal compressibility with no evidence of echogenic material noted within the lumen of the visualized veins. Colorflow and Doppler signals are normal. PRELIMINARY FINDINGS 1. Partial mobile thrombus in the right common femoral vein PHYSICIAN INTERPRETATION Venous examination of the both lower extremities demonstrated partial mobile thrombus in the right common femoral vein . Signed 04/08/2018 09:53 PM Baldomero Urena MD, RPVI Performing Organization Address [facility] Phone Number [facility] [address] [place] [address] * MRA Neck Wo Contrast (04/08/2018 3:30 PM SUPERVISOR SPEECH) Narrative Performed At EXAMINATION:MRA NECK WO CONTRAST [facility] CLINICAL HISTORY:previous ICH COMPARISON:None. IMPRESSION: 3-D reconstructions are processed off-line. No narrowing by NASCET criteria of the cervical internal carotid arteries. No hemodynamically significant narrowing of the distal common carotid arteries or visualized extracranial vertebral arteries. [facility]-[id number] Procedure Note Interface, Radiology Results Incoming - 04/08/2018 4:01 PM SUPERVISOR SPEECH EXAMINATION: MRA NECK WO CONTRAST CLINICAL HISTORY: previous ICH COMPARISON: None. IMPRESSION: 3-D reconstructions are processed off-line. No narrowing by NASCET criteria of the cervical internal carotid arteries. No hemodynamically significant narrowing of the distal common carotid arteries or visualized extracranial vertebral arteries. [facility]-[id number] Performing Organization Address [facility] [place] Phone Number [facility] [address] [place] [address] * MRA Head Wo Contrast (04/08/2018 3:12 PM SUPERVISOR SPEECH) Narrative Performed At [facility] EXAMINATION:MRA HEAD WO CONTRAST CLINICAL HISTORY:previous ICH COMPARISON:None. IMPRESSION: 3-D reconstructions were processed off-line. Large right cerebral hemisphere parenchymal hematoma displaces the right MCA branches without evidence of significant narrowing. No focal narrowing, aneurysmal dilatation or vascular malformation of the [place] vessels. [id number] Procedure Note Interface, Radiology Results Incoming - 04/08/2018 4:06 PM SUPERVISOR SPEECH EXAMINATION: MRA HEAD WO CONTRAST CLINICAL HISTORY: previous ICH COMPARISON: None. IMPRESSION: 3-D reconstructions were processed off-line. Large right cerebral hemisphere parenchymal hematoma displaces the right MCA branches without evidence of significant narrowing. No focal narrowing, aneurysmal dilatation or vascular malformation of the [place] vessels. [id number] Performing Organization Address [facility] Phone [facility] [address] [place] [address] * MRI Brain Wo Contrast (04/08/2018 3:00 PM SUPERVISOR SPEECH) Narrative Performed At EXAMINATION:[facility]:ICH COMPARISON:April 08, 2018 Findings: Given differences in modalities, no significant interval change in the large right cerebral hemisphere parenchymal hematoma measuring approximately 8.1 x 4.7 cm. Adjacent vasogenic edema. Mild intraventricular hemorrhage. Stable compression of the right lateral ventricle leftward midline shift measuring 5 mm. Scattered superficial areas of susceptibility in the infra and supratentorial brain likely due to chronic hemorrhagic insults concerning for amyloid angiopathy. Mild nonspecific periventricular T2/FLAIR signal hyperintensities may be due to amyloid angiopathy or chronic ischemic changes. IMPRESSION: Acute large right cerebral hemisphere parenchymal hematoma with stable mass effect. Mild intraventricular hemorrhage without hydrocephalus. Findings suggestive of amyloid angiopathy. [facility]-[id number] Procedure Note Interface, Radiology Results Incoming - 04/08/2018 4:05 PM SUPERVISOR SPEECH EXAMINATION: MRI BRAIN WO CONTRAST CLINICAL HISTORY: ICH COMPARISON: April 08, 2018 Findings: Given differences in modalities, no significant interval change in the large right cerebral hemisphere parenchymal hematoma measuring approximately 8.1 x 4.7 cm. Adjacent vasogenic edema. Mild intraventricular hemorrhage. Stable compression of the right lateral ventricle leftward midline shift measuring 5 mm. Scattered superficial areas of susceptibility in the infra and supratentorial brain likely due to chronic hemorrhagic insults concerning for amyloid angiopathy. Mild nonspecific periventricular T2/FLAIR signal hyperintensities may be due to amyloid angiopathy or chronic ischemic changes. IMPRESSION: Acute large right cerebral hemisphere parenchymal hematoma with stable mass effect. Mild intraventricular hemorrhage without hydrocephalus. Findings suggestive of amyloid angiopathy. [id number] Performing Organization Address [facility] Phone Number [facility] [address] [place] [address] * CT Head Wo Contrast (04/08/2018 9:16 AM SUPERVISOR SPEECH) Narrative Performed At EXAMINATION:[facility] CLINICAL [facility]:follow-up ICH COMPARISON:Outside head CT 04/04/2018 TECHNIQUE: Noncontrast head CT performed using radiation dose reduction techniques.Technical factors are evaluated and adjusted to ensure appropriate moderation of exposure.Automated dose management technology is applied to adjust radiation exposure while achieving a diagnostic quality image. FINDINGS: Interval evolution of large hemorrhage centered within the lateral aspect the right basal ganglia extending to the right temporal lobe spanning approximately 7.4 x 3.9 x 6.0 cm with an estimated volume of 90 cc. Extensive surrounding edema with near-complete effacement of the right lateral ventricle and leftward midline shift measuring 6 mm at the level of the foramen of Monro. Stable small intraventricular hemorrhage is noted layering in the occipital horns. Tiny suspected subarachnoid hemorrhage within the right sylvian fissure. Relatively mild chronic microvascular ischemic changes within the left cerebral hemisphere. Mild to moderate global cerebral and cerebellar volume loss. Status post bilateral lens extractions. No significant sinus inflammatory changes.Mastoid air cells are clear. IMPRESSION: Interval evolution of large hemorrhage within the right MCA territory with an estimated volume of 90 cc with extensive surrounding edema resulting in leftward midline shift measuring 6 mm at the level of the foramen of Monro which appears stable compared with 04/04/2018. Stable small intraventricular hemorrhage. [id number] Procedure Note Hm Interface, Radiology Results Incoming - 04/08/2018 9:29 AM SUPERVISOR SPEECH EXAMINATION: CT HEAD WO CONTRAST CLINICAL HISTORY: follow-up ICH COMPARISON: Outside head CT 04/04/2018 TECHNIQUE: Noncontrast head CT performed using radiation dose reduction techniques. Technical factors are evaluated and adjusted to ensure appropriate moderation of exposure. Automated dose management technology is applied to adjust radiation exposure while achieving a diagnostic quality image. FINDINGS: Interval evolution of large hemorrhage centered within the lateral aspect the right basal ganglia extending to the right temporal lobe spanning approximately 7.4 x 3.9 x 6.0 cm with an estimated volume of 90 cc. Extensive surrounding edema with near-complete effacement of the right lateral ventricle and leftward midline shift measuring 6 mm at the level of the foramen of Monro. Stable small intraventricular hemorrhage is noted layering in the occipital horns. Tiny suspected subarachnoid hemorrhage within the right sylvian fissure. Relatively mild chronic microvascular ischemic changes within the left cerebral hemisphere. Mild to moderate global cerebral and cerebellar volume loss. Status post bilateral lens extractions. No significant sinus inflammatory changes. Mastoid air cells are clear. IMPRESSION: Interval evolution of large hemorrhage within the right MCA territory with an estimated volume of 90 cc with extensive surrounding edema resulting in leftward midline shift measuring 6 mm at the level of the foramen of Monro which appears stable compared with 04/04/2018. Stable small intraventricular hemorrhage. [id number] Performing Organization Address City/State/Zipcode Phone Number [facility] [address] [place] [address] * CT Head External Study (04/04/2018 5:37 PM SUPERVISOR SPEECH) Only the most recent of 2 results within the time period is included. Narrative Performed At This exam was not acquired at a [facility] facility and has not been [facility] interpreted by a [facility] Provider.The exam was imported into our imaging system for comparisons purposes. Performing Organization Address City/State/Zipcode Phone Number [facility] [address] [place] [address] * MRI Head External Study (03/28/2018 2:05 PM SUPERVISOR SPEECH) Narrative Performed At This exam was not acquired at a [facility] facility and has not been [facility] interpreted by a [facility] Provider.The exam was imported into our imaging system for comparisons purposes. Performing Organization Address City/[facility]/Zipcode Phone Number [facility] [address] [place] [address] after 09/12/2017 Insurance Payer Benefit Subscriber ID Type Phone Address Plan / Group MEDICARE MEDICARE xxxxxxxxxxx Medicare [place], [place] PART A AND B [employer] xxxxxxxxxx Commercial L [employer] [place] Advance Directives Patient has advance care planning documents, and code status on file. For more i nformation, please contact: Dax Diana [address] [place] [address] Date Inactivated Comments Code Status Date Activated 05/21/2018 8:56 PM Modified Code 04/09/2018 4:15 PM Modified Code restrictions: No Intubation No Chest Compressions No Electrical Shocks Code Status decision reached by: Legal Surrogate Name of Surrogate: ginny Reid Surrogate Relation: 2. Spouse
[2018-09-13] MEDS ORDERED: VANCOMYCIN 1GM/NS 250 ML 250 ML IV ONE (19:54)
[2018-09-13] MEDS ORDERED: LEVOFLOXACIN 750MG/D5W 150ML 150 ML IV ONE (19:54)
[2018-09-13] MEDS ORDERED: ACETAMINOPHEN 1000 MG/100 ML IV ONE (19:54)
[2018-09-13] MEDS ORDERED: SODIUM CHLORIDE 0.9% 1000ML 1,000 ML ONE (19:58)
[2018-09-13] MEDS ORDERED: CEFEPIME 1GM/NS 0.9% 50 ML 50 ML IV ONE (20:00)
[2018-09-13] MEDS ORDERED: SODIUM CHLORIDE 0.9% 1000ML 1,000 ML IV ONE ×2 (20:00)
[2018-09-13] MEDS ORDERED: VANCOMYCIN 1GM/NS 250 ML 250 ML ONE (20:00)
[2018-09-13] MEDS ORDERED: NOREPINEPHRINE INJ 4MG/4ML 8 MG in DEXTROSE 5% 250ML 250 ML IV PRN (20:15)
[2018-09-13 20:32] LABS: BASOPHILS % 0.1 % (0.0-1.0); EOSINOPHILS % 0.1 % (0.0-6.0); HEMATOCRIT 26.8 % (38.2-49.6); LYMPHOCYTES # (AUTO) 1.2 (1.0-3.2); LYMPHOCYTES % 15.9 % (18.0-39.1); MEAN CORPUSCULAR HEMOGLOBIN 32.4 pg (28-32); MEAN CORPUSCULAR HGB CONC 33.6 g/dL (31-35); MEAN CORPUSCULAR VOLUME 96.4 fL (81-99); MONOCYTES # (AUTO) 0.5 (0.2-0.8); MONOCYTES % 5.9 % (4.4-11.3); NEUTROPHILS # (AUTO) 5.9 (2.1-6.9); NEUTROPHILS % 76.7 % (38.7-80.0); PLATELET COUNT 117 x10e3/uL (140-360); RED BLOOD COUNT 2.78 x10e6/uL (4.3-5.7); RED CELL DISTRIBUTION WIDTH 16.8 % (11.7-14.4)
[2018-09-13] MEDS: NOREPINEPHRINE 8 MG/D5W 250 ML 250 ML IV PRN (20:39)
[2018-09-13 20:40] LABS: INR 1.32
[2018-09-13 20:41] LABS: PARTIAL THROMBOPLASTIN TIME 33.4 seconds (23.8-35.5)
[2018-09-13 20:49] LABS: ALANINE AMINOTRANSFERASE 39 IU/L (0-55); ALBUMIN 2.6 g/dL (3.5-5.0); ALBUMIN/GLOBULIN RATIO 1.1 (0.8-2.0); ALKALINE PHOSPHATASE 853 IU/L (40-150); ANION GAP 13.7 mmol/L (8-16); BLOOD UREA NITROGEN 25 mg/dL (7-26); BUN/CREATININE RATIO 32 (6-25); CALCIUM 8.6 mg/dL (8.4-10.2); CARBON DIOXIDE 16 mmol/L (22-29); CHLORIDE 110 mmol/L (98-107); CREATINE KINASE 27 IU/L (30-200); CREATININE, SERUM 0.79 mg/dL (0.72-1.25); EST GLOMERULAR FILTRATION RATE > 60 ML/MIN (60-); GLUCOSE 107 mg/dL (74-118); POTASSIUM 3.7 mmol/L (3.5-5.1); SODIUM 136 mmol/L (136-145)
[2018-09-13] MEDS: SODIUM CHLORIDE 0.9% 1000ML 1,000 ML IV SCH (20:57)
[2018-09-13 21:01] LABS: CLARITY,URINE HAZY (CLEAR); COLOR,URINE YELLOW (YELLOW); KETONES,URINE NEGATIVE (NEGATIVE); LEUKOCYTE ESTERASE ,URINE NEGATIVE (NEGATIVE); NITRITE,URINE NEGATIVE (NEGATIVE); PROTEIN,URINE DIPSTICK TRACE (NEGATIVE)
[2018-09-13 21:02] LABS: AMORPHOUS SEDIMENT,URINE MANY (FEW); BACTERIA,URINE MODERATE /HPF; BILIRUBIN,URINE NEGATIVE (NEGATIVE); EPITHELIAL CELLS,URINE FEW /LPF; URINE UROBILINOGEN 0.2 mg/dL (0.2 - 1)
--- NOTE | 2018-09-13 21:35 | Diagnostic Imaging Report ---
Examination: Single AP view of the chest. COMPARISON: None. INDICATION: Sepsis, fever, CVC placement IMPRESSION: 1. Lines and Tubes: Right IJ central line has distal tip projecting at the cavoatrial junction. 2. Interstitial opacities extending from the nikki suggesting interstitial edema/fluid overload. Patchy airspace opacity in the retrocardiac region, which may represent atelectasis or pneumonia. 3. Prominence of the cardiac silhouette likely due to AP projection. Central pulmonary venous congestion. Atherosclerotic calcification of the aortic arch. 4. No acute bony abnormalities. Signed by: Dr. Brooks Vega M.D. on 09/13/2018 9:32 PM
--- NOTE | 2018-09-13 23:01 | Diagnostic Imaging Report ---
Examination: Single AP view of the chest. COMPARISON: Portable chest 09/13/2018 INDICATION: Sepsis, back Central line about 2 cm IMPRESSION: 1. Lines and Tubes: Right IJ central line has its distal tip projecting in the proximal to mid SVC. 2. No significant interval change in mild interstitial edema and central pulmonary venous congestion. Slight improvement in left retrocardiac opacity suggesting improved atelectasis. 3. Stable enlargement of the cardiac silhouette. 4. No acute bony abnormalities. Signed by: Dr. Brooks Vega M.D. on 09/13/2018 10:57 PM
--- OUTSIDE RECORDS SUMMARY | 2018-09-13 23:19 | XMS REPORT | Clinical Summary ---
Author Author [facility] Organization [facility] Address Unknown Phone Unavailable Care Team Providers Care Fisheries Enforcement Officer Name Role Phone Ernesto Leong MD PCP [...] every 6 (six) hours. 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 General Internal Medicine - Encounter 05/21/2018 N/A [...] Taken Vital Sign Reading 05/21/2018 4:07 PM LOCATOR SPECIALIST Blood Pressure 109/53 05/21/2018 4:07 PM LOCATOR SPECIALIST Pulse 94 05/21/2018 4:07 PM LOCATOR SPECIALIST Temperature 36.7 C (98.1 F) 05/21/2018 4:07 PM LOCATOR SPECIALIST Respiratory Rate 16 05/21/2018 4:07 PM LOCATOR SPECIALIST Oxygen Saturation 96% - Inhaled Oxygen - Concentration 04/10/2018 12:06 PM LOCATOR SPECIALIST Weight 70.5 kg (155 lb 8 oz) 04/10/2018 12:06 PM LOCATOR SPECIALIST Height 180.3 cm (5' 11") 04/10/2018 12:06 PM LOCATOR SPECIALIST Body Mass Index 21.69 Plan of Treatment Health Maintenance Due Date Last Done Comments SHINGLES VACCINES (#1) 1983 65+ PNEUMOCOCCAL VACCINE 1998 (1 of 2 - PCV13) PNEUMOCOCCAL 1998 POLYSACCHARIDE VACCINE AGE 65 AND OVER INFLUENZA VACCINE 11/29/2018 Implants Device Identifier Shelf Expiration Date Model / Serial / Lot Implanted Type Area Manufactur er [id number] / / Cook Celect [place] Navalign Vascular N/A: N/A Page365 Uniset Vena Cava Filter - Filter PERIPHERAL [id number] INTERVENTI Implanted: 04/11/2018 (Quantity not ON on file) Procedures Comments Procedure Name Priority Date/Time Associated Diagnosis HC COMPLETE BLD COUNT Routine 05/21/2018 W/AUTO DIFF 7:40 AM LOCATOR SPECIALIST CBC WITH PLATELET AND Routine 05/15/2018 DIFFERENTIAL 6:00 AM LOCATOR SPECIALIST ESTIMATED GFR Routine 05/15/2018 5:30 AM LOCATOR SPECIALIST BASIC METABOLIC PANEL Routine 05/15/2018 5:30 AM LOCATOR SPECIALIST HC COMPLETE BLD COUNT Routine 05/14/2018 W/AUTO DIFF 8:10 PM LOCATOR SPECIALIST XR CHEST 1 VW PORTABLE Routine 05/10/2018 12:55 PM LOCATOR SPECIALIST PREALBUMIN LEVEL Routine 05/09/2018 4:00 AM LOCATOR SPECIALIST C-REACTIVE PROTEIN Routine 05/09/2018 4:00 AM LOCATOR SPECIALIST SEDIMENTATION RATE Routine 05/09/2018 4:00 AM LOCATOR SPECIALIST HEMOGLOBIN & HEMATOCRIT Routine 05/09/2018 4:00 AM LOCATOR SPECIALIST PARTIAL THROMBOPLASTIN Routine 05/09/2018 TIME (PTT) 4:00 AM LOCATOR SPECIALIST ESTIMATED GFR Routine 05/08/2018 3:18 AM LOCATOR SPECIALIST HC COMPLETE BLD COUNT Routine 05/08/2018 W/AUTO DIFF 3:18 AM LOCATOR SPECIALIST BASIC METABOLIC PANEL Routine 05/08/2018 3:18 AM LOCATOR SPECIALIST POC GLUCOSE Routine 05/04/2018 9:14 PM LOCATOR SPECIALIST ESTIMATED GFR Routine 05/04/2018 6:20 AM LOCATOR SPECIALIST HC COMPLETE BLD COUNT Routine 05/04/2018 W/AUTO DIFF 6:20 AM LOCATOR SPECIALIST BASIC METABOLIC PANEL Routine 05/04/2018 6:20 AM LOCATOR SPECIALIST CONSULT TO OSTOMY CARE Routine 05/01/2018 NURSE 7:00 PM LOCATOR SPECIALIST ESTIMATED GFR Routine 04/30/2018 5:05 AM LOCATOR SPECIALIST MAGNESIUM LEVEL Routine 04/30/2018 5:05 AM LOCATOR SPECIALIST HC COMPLETE BLD COUNT Routine 04/30/2018 W/AUTO DIFF 5:05 AM LOCATOR SPECIALIST BASIC METABOLIC PANEL Routine 04/30/2018 5:05 AM LOCATOR SPECIALIST CLOSTRIDIUM DIFFICILE Routine 04/28/2018 TOXIN 5:50 PM LOCATOR SPECIALIST XR CHEST 1 VW PORTABLE Routine 04/25/2018 3:55 PM LOCATOR SPECIALIST HC COMPLETE BLD COUNT Routine 04/23/2018 W/AUTO DIFF 5:35 AM LOCATOR SPECIALIST ESTIMATED GFR Routine 04/23/2018 4:00 AM LOCATOR SPECIALIST PHOSPHORUS LEVEL Routine 04/23/2018 4:00 AM LOCATOR SPECIALIST MAGNESIUM LEVEL Routine 04/23/2018 4:00 AM LOCATOR SPECIALIST BASIC METABOLIC PANEL Routine 04/23/2018 4:00 AM LOCATOR SPECIALIST HC COMPLETE BLD COUNT Routine 04/21/2018 W/AUTO DIFF 4:35 AM LOCATOR SPECIALIST ESTIMATED GFR Routine 04/21/2018 4:00 AM LOCATOR SPECIALIST PHOSPHORUS LEVEL Routine 04/21/2018 4:00 AM LOCATOR SPECIALIST MAGNESIUM LEVEL Routine 04/21/2018 4:00 AM LOCATOR SPECIALIST BASIC METABOLIC PANEL Routine 04/21/2018 4:00 AM LOCATOR SPECIALIST POC GLUCOSE Routine 04/20/2018 1:31 AM LOCATOR SPECIALIST ESTIMATED GFR Routine 04/19/2018 5:50 AM LOCATOR SPECIALIST MAGNESIUM LEVEL Routine 04/19/2018 5:50 AM LOCATOR SPECIALIST BASIC METABOLIC PANEL Routine 04/19/2018 5:50 AM LOCATOR SPECIALIST HC COMPLETE BLD COUNT Routine 04/19/2018 W/AUTO DIFF 5:50 AM LOCATOR SPECIALIST XR CHEST 1 VW PORTABLE Routine 04/18/2018 10:27 AM LOCATOR SPECIALIST ESTIMATED GFR Routine 04/18/2018 4:55 AM LOCATOR SPECIALIST VANCOMYCIN LEVEL, RANDOM Routine 04/18/2018 4:55 AM LOCATOR SPECIALIST MAGNESIUM LEVEL Routine 04/18/2018 4:55 AM LOCATOR SPECIALIST BASIC METABOLIC PANEL Routine 04/18/2018 4:55 AM LOCATOR SPECIALIST HC COMPLETE BLD COUNT Routine 04/18/2018 W/AUTO DIFF 4:55 AM LOCATOR SPECIALIST POC GLUCOSE Routine 04/17/2018 3:40 PM LOCATOR SPECIALIST POC GLUCOSE Routine 04/17/2018 12:19 PM LOCATOR SPECIALIST POC GLUCOSE Routine 04/17/2018 7:28 AM LOCATOR SPECIALIST RESPIRATORY PATHOGEN Routine 04/17/2018 PANEL 6:55 AM LOCATOR SPECIALIST ESTIMATED GFR Routine 04/17/2018 4:00 AM LOCATOR SPECIALIST PHOSPHORUS LEVEL Routine 04/17/2018 4:00 AM LOCATOR SPECIALIST MAGNESIUM LEVEL Routine 04/17/2018 4:00 AM LOCATOR SPECIALIST BASIC METABOLIC PANEL Routine 04/17/2018 4:00 AM LOCATOR SPECIALIST ESTIMATED GFR Routine 04/17/2018 12:00 AM LOCATOR SPECIALIST B NATRIURETIC PEPTIDE Routine 04/17/2018 12:00 AM LOCATOR SPECIALIST HC COMPLETE BLD COUNT Routine 04/17/2018 W/AUTO DIFF 12:00 AM LOCATOR SPECIALIST MAGNESIUM LEVEL Routine 04/17/2018 12:00 AM LOCATOR SPECIALIST BASIC METABOLIC PANEL Routine 04/17/2018 12:00 AM LOCATOR SPECIALIST URINALYSIS SCREEN AND Routine 04/17/2018 MICROSCOPY, WITH REFLEX 12:00 AM LOCATOR SPECIALIST TO CULTURE URINE CULTURE Routine 04/17/2018 12:00 AM LOCATOR SPECIALIST BLOOD CULTURE, AEROBIC & Routine 04/16/2018 ANAEROBIC 6:15 PM LOCATOR SPECIALIST BLOOD CULTURE, AEROBIC & Routine 04/16/2018 ANAEROBIC 6:15 PM LOCATOR SPECIALIST HC COMPLETE BLD COUNT Routine 04/16/2018 W/AUTO DIFF 5:10 PM LOCATOR SPECIALIST POC GLUCOSE Routine 04/16/2018 3:30 PM LOCATOR SPECIALIST XR CHEST 1 VW PORTABLE Routine 04/16/2018 2:37 PM LOCATOR SPECIALIST ESTIMATED GFR Routine 04/16/2018 4:00 AM LOCATOR SPECIALIST BASIC METABOLIC PANEL Routine 04/16/2018 4:00 AM LOCATOR SPECIALIST IONIZED CALCIUM STAT 04/14/2018 8:35 AM LOCATOR SPECIALIST MAGNESIUM LEVEL STAT 04/14/2018 8:35 AM LOCATOR SPECIALIST POTASSIUM LEVEL STAT 04/14/2018 8:35 AM LOCATOR SPECIALIST XR CERVICAL SPINE 1 VW STAT 04/13/2018 10:08 PM LOCATOR SPECIALIST POC GLUCOSE Routine 04/13/2018 8:27 AM LOCATOR SPECIALIST ESTIMATED GFR Routine 04/13/2018 5:45 AM LOCATOR SPECIALIST MAGNESIUM LEVEL Routine 04/13/2018 5:45 AM LOCATOR SPECIALIST BASIC METABOLIC PANEL Routine 04/13/2018 5:45 AM LOCATOR SPECIALIST HC COMPLETE BLD COUNT Routine 04/13/2018 W/AUTO DIFF 5:45 AM LOCATOR SPECIALIST URINALYSIS SCREEN AND Routine 04/12/2018 MICROSCOPY, WITH REFLEX 8:00 PM LOCATOR SPECIALIST TO CULTURE URINE CULTURE Routine 04/12/2018 8:00 PM LOCATOR SPECIALIST FL MODIFIED BARIUM Routine 04/12/2018 SWALLOW 4:02 PM LOCATOR SPECIALIST US DUPLEX VENOUS UPPER Routine 04/12/2018 EXTREMITY LEFT 9:40 AM LOCATOR SPECIALIST HC COMPLETE BLD COUNT Routine 04/12/2018 W/AUTO DIFF 4:20 AM LOCATOR SPECIALIST PARTIAL THROMBOPLASTIN Routine 04/12/2018 TIME (PTT) 4:20 AM LOCATOR SPECIALIST PROTHROMBIN TIME WITH INR Routine 04/12/2018 4:20 AM LOCATOR SPECIALIST ESTIMATED GFR Routine 04/12/2018 4:00 AM LOCATOR SPECIALIST MAGNESIUM LEVEL Routine 04/12/2018 4:00 AM LOCATOR SPECIALIST BASIC METABOLIC PANEL Routine 04/12/2018 4:00 AM LOCATOR SPECIALIST IR IVC FILTER PLACEMENT Routine 04/11/2018 4:18 PM LOCATOR SPECIALIST B NATRIURETIC PEPTIDE Routine 04/11/2018 5:45 AM LOCATOR SPECIALIST HC COMPLETE BLD COUNT Routine 04/11/2018 W/AUTO DIFF 5:45 AM LOCATOR SPECIALIST PARTIAL THROMBOPLASTIN Routine 04/11/2018 TIME (PTT) 5:45 AM LOCATOR SPECIALIST PROTHROMBIN TIME WITH INR Routine 04/11/2018 5:45 AM LOCATOR SPECIALIST ESTIMATED GFR Routine 04/11/2018 4:00 AM LOCATOR SPECIALIST PHOSPHORUS LEVEL Routine 04/11/2018 4:00 AM LOCATOR SPECIALIST MAGNESIUM LEVEL Routine 04/11/2018 4:00 AM LOCATOR SPECIALIST BASIC METABOLIC PANEL Routine 04/11/2018 4:00 AM LOCATOR SPECIALIST MANUAL DIFFERENTIAL Routine 04/10/2018 4:37 AM LOCATOR SPECIALIST ESTIMATED GFR Routine 04/10/2018 4:37 AM LOCATOR SPECIALIST PARTIAL THROMBOPLASTIN Routine 04/10/2018 TIME (PTT) 4:37 AM LOCATOR SPECIALIST PROTHROMBIN TIME WITH INR Routine 04/10/2018 4:37 AM LOCATOR SPECIALIST PHOSPHORUS LEVEL Routine 04/10/2018 4:37 AM LOCATOR SPECIALIST MAGNESIUM LEVEL Routine 04/10/2018 4:37 AM LOCATOR SPECIALIST B NATRIURETIC PEPTIDE Routine 04/10/2018 4:37 AM LOCATOR SPECIALIST BASIC METABOLIC PANEL Routine 04/10/2018 4:37 AM LOCATOR SPECIALIST CBC WITH PLATELET AND Routine 04/10/2018 DIFFERENTIAL 4:37 AM LOCATOR SPECIALIST FIBRINOGEN Routine 04/10/2018 4:37 AM LOCATOR SPECIALIST D-DIMER Routine 04/10/2018 4:37 AM LOCATOR SPECIALIST FL MODIFIED BARIUM Routine 04/09/2018 SWALLOW 11:07 AM LOCATOR SPECIALIST URINALYSIS SCREEN AND Routine 04/09/2018 MICROSCOPY, WITH REFLEX 10:00 AM LOCATOR SPECIALIST TO CULTURE GRAM STAIN Routine 04/09/2018 10:00 AM LOCATOR SPECIALIST URINE CULTURE Routine 04/09/2018 10:00 AM LOCATOR SPECIALIST US DUPLEX VENOUS LOWER Routine 04/08/2018 EXTREMITY BILATERAL 5:52 PM LOCATOR SPECIALIST MRA NECK WO CONTRAST Routine 04/08/2018 3:30 PM LOCATOR SPECIALIST MRA HEAD WO CONTRAST Routine 04/08/2018 3:12 PM LOCATOR SPECIALIST MRI BRAIN WO CONTRAST Routine 04/08/2018 3:[address] HEAD WO CONTRAST STAT 04/08/2018 9:16 AM LOCATOR SPECIALIST XR CHEST 1 VW PORTABLE Routine 04/08/2018 6:06 AM LOCATOR SPECIALIST HC COMPLETE BLD COUNT Routine 04/08/2018 W/AUTO DIFF 3:01 AM LOCATOR SPECIALIST ESTIMATED GFR Routine 04/08/2018 12:02 AM LOCATOR SPECIALIST PROTHROMBIN TIME WITH INR Routine 04/08/2018 12:02 AM LOCATOR SPECIALIST PARTIAL THROMBOPLASTIN Routine 04/08/2018 TIME (PTT) 12:02 AM LOCATOR SPECIALIST CBC WITH PLATELET AND Routine 04/08/2018 DIFFERENTIAL 12:02 AM LOCATOR SPECIALIST BASIC METABOLIC PANEL Routine 04/08/2018 12:[address] HEAD EXTERNAL STUDY Routine 04/04/2018 5:37 PM LOCATOR SPECIALIST MRI HEAD EXTERNAL STUDY Routine 03/28/2018 2:[address] HEAD EXTERNAL STUDY Routine 03/25/2018 10:54 AM LOCATOR SPECIALIST after 09/12/2017 Results * CBC with platelet and differential (05/21/2018 7:40 AM LOCATOR SPECIALIST) Only the most recent of 18 results within the time period is included. WBC 3.59 (L) 4.50 - 11.00 k/uL [facility] RBC 3.35 (L) 4.40 - 6.00 m/uL [facility] HGB 11.1 (L) 14.0 - 18.0 g/dL [facility] HCT 34.5 (L) 41.0 - 51.0 % [facility] MCV 103.0 (H) 82.0 - 100.0 fL [facility] MCH 33.1 27.0 - 34.0 pg [facility] MCHC 32.2 31.0 - 37.0 g/dL [facility] RDW - SD 60.1 (H) 37.0 - 55.0 fL [facility] MPV 10.4 8.8 - 13.2 fL [facility] Platelet count 109 (L) 150 - 400 k/uL [facility] Nucleated RBC 0.00 /100 WBC [facility] Neutrophils 64.1 39.0 - 69.0 % [facility] Lymphocytes 23.4 (L) 25.0 - 45.0 % [facility] Monocytes 6.1 0.0 - 10.0 % [facility] Eosinophils 2.8 0.0 - 5.0 % [facility] Basophils 1.1 (H) 0.0 - 1.0 % [facility] Immature granulocytes 2.5 (H)Comment: "Immature 0.0 - 1.0 % [facility] granulocytes" (promyelocytes, HOSPITAL myelocytes, metamyelocytes) Specimen Blood Performing Organization Address City/[facility]/Zipcode Phone Number [facility] [place] [address] PATHOLOGY AND GENOMIC MEDICINE [address] * Estimated GFR (05/15/2018 5:30 AM LOCATOR SPECIALIST) Only the most recent of 16 results within the time period is included. Estimated GFR >=90 mL/min/1.73 m2 [facility] Comment: HOSPITAL CatergoryUnitsInte rpretation G1 >=90 Normal or high G2 60-89Mildly decreased [id number] Mildly to moderately decreased [id number] Moderately to severely decreased G4 15-29Severely decreased G5 <15Kidney failure The eGFR was calculated using the Chronic Kidney Disease Epidemiology Collaboration (CKD-EPI) equation. Interpretation is based on recommendations of the National Kidney Foundation-Kidney Disease Outcomes Quality Initiative (NKF-KDOQI) published in 2014. Specimen Plasma specimen Performing Organization Address City/State/Zipcode Phone Number [facility] DEPARTMENT OF [address] [place] [address] PATHOLOGY AND GENOMIC MEDICINE [address] * Basic metabolic panel (05/15/2018 5:30 AM LOCATOR SPECIALIST) Only the most recent of 16 results within the time period is included. Sodium 133 (L) 135 - 148 mEq/L [facility] Potassium 3.9 3.5 - 5.0 mEq/L [facility] Chloride 100 98 - 112 mEq/L [facility] CO2 23 (L) 24 - 31 mEq/L [facility] Anion gap 10@ANIO 7 - 15 mEq/L [facility] BUN 11 8 - 23 mg/dL [facility] Creatinine 0.51 (L) 0.70 - 1.20 mg/dL [facility] Glucose 100 (H) 65 - 99 mg/dL [facility] Calcium 9.2 8.8 - 10.2 mg/dL [facility] Specimen Plasma specimen Performing Organization Address City/[facility] Centercode Phone Number [facility] DEPARTMENT OF [address] [place] [address] PATHOLOGY AND GENOMIC MEDICINE [address] * XR Chest 1 Vw Portable (05/10/2018 12:55 PM LOCATOR SPECIALIST) Only the most recent of 5 results within the time period is included. Narrative Performed At EXAMINATION:[facility]ST [facility]:Shortness of breath COMPARISON:Most Recent Prior at [facility] IMPRESSION: Heart is normal in size. No focal infiltrates. Minimal basilar scarring or atelectasis. No pneumothorax or effusion. Diffuse osteopenia. [facility]-[id number] Procedure Note Interface, Radiology Results Incoming - 05/10/2018 1:08 PM LOCATOR SPECIALIST EXAMINATION: XR CHEST 1 VW PORTABLE CLINICAL HISTORY: Shortness of breath COMPARISON: Most Recent Prior at [facility] IMPRESSION: Heart is normal in size. No focal infiltrates. Minimal basilar scarring or atelectasis. No pneumothorax or effusion. Diffuse osteopenia. [facility]-[id number] Performing Organization Address [facility] Centercode Phone Number [facility] [address] [place] [address] * Hemoglobin & hematocrit (05/09/2018 4:00 AM LOCATOR SPECIALIST) HGB 11.1 (L) 14.0 - 18.0 g/dL [facility] HCT 33.9 (L) 41.0 - 51.0 % [facility] Specimen Blood Performing Organization Address City/[facility]/Zipcode Phone Number [facility] DEPARTMENT OF [address] [place] [id number] PATHOLOGY AND GENOMIC MEDICINE [address] * Partial thromboplastin time, activated (05/09/2018 4:00 AM LOCATOR SPECIALIST) Only the most recent of 5 results within the time period is included. PTT 28.6 23.0 - 36.0 sec [facility] Comment: HOSPITAL PTT therapeutic range for unfractionated heparin is 61.0-112.0 seconds which corresponds to Anti-Xa 0.3-0.7 U/ml. Specimen Blood Performing Organization Address City/State/Zipcode Phone Number [facility] [place] [address] PATHOLOGY AND [facility]PART[facility] MEDICINE [address] * Sedimentation rate (05/09/2018 4:00 AM LOCATOR SPECIALIST) Sedimentation rate 12 (H) 0 - 10 mm/hr [facility] Specimen Blood Performing Organization Address City/[facility] Centercode Phone Number [facility] [place] [address] [address] * C-reactive protein (05/09/2018 4:00 AM LOCATOR SPECIALIST) CRP 0.76 (H) 0.00 - 0.50 mg/dL [facility] Specimen Plasma specimen Performing Organization Address City/[facility] Centercode Phone Number [facility] [place] [address] PATHOLOGY AND DE[facility] [address] * Prealbumin level (05/09/2018 4:00 AM LOCATOR SPECIALIST) Prealbumin 15 (L) 16 - 32 mg/dL [facility] Specimen Serum Performing Organization Address [facility] Phone Number [facility] [place] [address] PATHOLOGY AND [facility] [address] * POC glucose (05/04/2018 9:14 PM LOCATOR SPECIALIST) Only the most recent of 7 results within the time period is included. POC glucose 108 (H) 65 - 99 mg/dL [facility] Comment: [facility] Notified RN Meter ID: [id number] Extension Edger: Manda Sun Performing Organization Address City/[facility]/Zipcode Phone Number [facility] [place] [address] PATHOLOGY AND GENOMIC MEDICINE [address] * Magnesium level (04/30/2018 5:05 AM LOCATOR SPECIALIST) Only the most recent of 12 results within the time period is included. Magnesium 1.9 1.6 - 2.4 mg/dL [facility] Specimen Plasma specimen Performing Organization Address City/[facility] Centercode Phone Number [facility] [place] [address] PATHOLOGY AND [facility] [address] * C difficile toxin (04/28/2018 5:50 PM LOCATOR SPECIALIST) Clostridium difficile No Clostridium difficle toxin [facility] Comment: Specimen Information Specimen Source: Stool Specimen Site: Not otherwise specified Specimen Stool - Not otherwise specified Performing Organization Address City/[facility] Centercode Phone Number [facility] [place] [address] PATHOLOGY AND [facility] [address] * Phosphorus level (04/23/2018 4:00 AM LOCATOR SPECIALIST) Only the most recent of 5 results within the time period is included. Phosphorus 2.9 2.4 - 4.5 mg/dL [facility] Specimen Plasma specimen Performing Organization Address City/[facility] Centercode Phone Number [facility] [place] [address] PATHOLOGY AND [facility] [address] * Vancomycin level, random (04/18/2018 4:55 AM LOCATOR SPECIALIST) Vancomycin, random 12.0 ug/mL [facility] Specimen Serum Performing Organization Address [facility] Phone Number [facility] [place] [address] PATHOLOGY AND GENOMIC MEDICINE [address] * Respiratory pathogen panel (04/17/2018 6:55 AM LOCATOR SPECIALIST) Respiratory pathogen Negative for all pathogens [facility] panel tested: HOSPITAL Negative for Adenovirus Negative [...] Nares - Not specified Performing Organization Address City/[facility] [place] [address] PATHOLOGY AND GENOMIC MEDICINE [address] * Urinalysis screen and microscopy, with reflex to culture (04/17/2018 12:00 AM LOCATOR SPECIALIST) Only the most recent of 3 results within the time period is included. Specimen site Clean catch [facility] Color, UA Yellow [facility] Appearance, UA Clear [facility] Specific gravity, UA 1.013 1.001 - 1.035 [facility] pH, UA 6.0 5.0 - 8.5 [facility] Protein, UA Negative Negative [facility] Glucose, UA Negative Negative [facility] Ketones, UA Negative Negative [facility] Bilirubin, UA Negative Negative [facility] Blood, UA Negative Negative [facility] Nitrite, UA Negative Negative [facility] Urobilinogen, UA 4.0 (A) <2.0 [facility] Leukocyte esterase, UA Negative Negative [facility] Epithelial cells, UA 1 /HPF [facility] WBC, UA 3 (H) 0 - 1 /HPF [facility] RBC, UA 2 0 - 5 /HPF [facility] Bacteria, UA None seen None seen [facility] Yeast, UA Few (A) [facility] Yeast with pseudohyphae, None seen [facility] Specimen Urine Performing Organization Address City/[facility] [place] [address] PATHOLOGY AND GENOMIC MEDICINE [address] * Urine culture (04/17/2018 12:00 AM LOCATOR SPECIALIST) Only the most recent of 3 results within the time period is included. Urine culture SEE COMMENTComment: [facility] Bacteriuria screen negative. HOSPITAL Performing Organization Address City/[facility] Centercode Phone Number [facility] [place] [address] PATHOLOGY AND [facility] [address] * B natriuretic peptide (04/17/2018 12:00 AM LOCATOR SPECIALIST) Only the most recent of 3 results within the time period is included. BNP 243 (H) 0 - 100 pg/mL [facility] Specimen Blood Performing Organization Address [facility] Centercode Phone Number [facility] [place] [address] PATH[address] * Blood culture, aerobic & anaerobic (04/16/2018 6:15 PM LOCATOR SPECIALIST) Only the most recent of 2 results within the time period is included. Blood culture isolate No growth after 5 days of [facility] incubation. HOSPITAL Comment: Specimen Information Specimen Source: Blood Specimen Site: Antecubital, right Specimen Blood - Antecubital, right Performing Organization Address [facility] Centerconh Phone Number [facility] [place] [address] PATHOLOG[address] * Potassium level (04/14/2018 8:35 AM LOCATOR SPECIALIST) Potassium 4.7 3.5 - 5.0 mEq/L [facility] Specimen Plasma specimen Performing Organization Address [facility] Centercode Phone Number [facility] [place] [address] PATH[address] * Ionized calcium (04/14/2018 8:35 AM LOCATOR SPECIALIST) pH 7.48 [facility] Ionized calcium 0.98 (L) 1.11 - 1.32 mmol/L [facility] Specimen Plasma specimen Performing Organization Address [facility] Cent[facility]ode Phone Number [facility] [place] [address] PATHOLOGY AND [facility] MEDICINE [address] * XR Cervical Spine 1 Vw (04/13/2018 10:08 PM LOCATOR SPECIALIST) Narrative Performed At EXAMINATION:[facility]: Neck paininitial exam COMPARISON: None. FINDINGS: A single frontal view of the cervical spine obtained. Multilevel degenerative changes. No obvious fracture. IMPRESSION: Single frontal view demonstrating multilevel degenerative change. No obvious fracture. [facility]-[id number] Procedure Note Interface, Radiology Results Incoming - 04/13/2018 10:18 PM LOCATOR SPECIALIST EXAMINATION: XR CERVICAL SPINE 1 VW CLINICAL HISTORY: Neck pain initial exam COMPARISON: None. FINDINGS: A single frontal view of the cervical spine obtained. Multilevel degenerative changes. No obvious fracture. IMPRESSION: Single frontal view demonstrating multilevel degenerative change. No obvious fracture. [facility]-[id number] Performing Organization Address [facility] Phone Number [facility] [address] [place] [address] * [place] Modified Barium Swallow (04/12/2018 4:02 PM LOCATOR SPECIALIST) Only the most recent of 2 results [...] to Speech Pathology report for further details. [facility]-[id number] Procedure Note Interface, Radiology Results Incoming - 04/12/2018 6:03 PM LOCATOR SPECIALIST EXAMINATION: FL MODIFIED BARIUM SWALLOW CLINICAL HISTORY: Dysphagia known cause COMPARISON: April 09, 2018 Fluoroscopy time: 2.3 minutes FINDINGS: The patient was given multiple consistencies of barium. The swallowing act was normal. There is silent aspiration with thin consistency barium. Laryngeal penetration was seen with nectar consistency. IMPRESSION: Silent aspiration with thin liquids. Please refer to Speech Pathology report for further details. [facility]-[id number] Performing Organization Address [facility] Phone Number [facility] [address] [place] [address] * Us duplex venous upper extremity (04/12/2018 9:40 AM LOCATOR SPECIALIST) Narrative Performed At [facility] Vascular Ultrasound Laboratory Upper Extremity Venous Report [address], [place] [address] Pat.Name:LORI REID Pat.ID:[id number] .Date: 04/12/2018Refer.MD:TYREE CABRERA MD Exam Time: 9:25:00 AMStudy Type:UE Venous DOBAge:1935,82Y Sex: MALE Sonogrphr: Pranay Beavers, RDMS, RVTPat. Stat.:Inpatient Room:[place] [address] TapeVol: , CPT - 4: 03103 Echo Event ID:[id number] Order ID:[id number] Reason for Study:Left upper extremity redness of [...] Radiology Results In - 04/12/2018 11:22 AM [facility] Vascular Ultrasound Laboratory Upper Extremity Venous Report [address] [address] [facility].Name: LORI REID Pat.ID: [id number] .Date: 04/12/2018 Refer.MD: TYREE CABRERA MD Exam Time: 9:25:00 AM Study Type:UE Venous Age: 2 1935,82Y Sex: MALE Sonogrphr: Pranay Beavers RDMS, RVT Pat. Stat.:Inpatient Room: [place] [address] Tape Vol: , CPT - 4: 17654 Echo Event ID:[id number] Order ID: [id number] Reason for Study:Left upper extremity redness of [...] Organization Address City/State/Zipcode Phone Number [facility] [address] [place] [address] * Prothrombin time with INR (04/12/2018 4:20 AM LOCATOR SPECIALIST) Only the most recent of 4 results within the time period is included. Prothrombin time 15.8 (H) 11.5 - 14.5 sec [facility] INR 1.3 [facility] Comment: HOSPITAL The International Normalized Ratio (INR) is a therapeutic monitoring tool for patients who are stable on oral anticoagulant therapy. An INR of 2.0-3.0 is suggested for deep vein thrombosis/pulmonary embolism. Specimen Blood Performing Organization Address City/State/Zipcode Phone Number [facility] DEPARTMENT OF [address] [place] [address] PATHOLOGY AND GENOMIC MEDICINE [facility] [address] [place] [address] HOSPITAL * IR IVC Filter Placement (04/11/2018 4:18 PM LOCATOR SPECIALIST) Narrative Performed At Procedure [facility] 1. Inferior [...] The micropuncture sheath was removed and a 5-Jamaican pigtail catheter was then placed over the [...] filter within the infrarenal inferior vena cava. [facility]-[id number] Procedure Note [facility], Radiology Results Incoming - 04/11/2018 5:42 PM LOCATOR SPECIALIST Procedure 1. Inferior vena cavogram 2. Placement [...] The micropuncture sheath was removed and a 5-Jamaican pigtail catheter was then placed over the [...] filter within the infrarenal inferior vena cava. [facility]-[id number] Performing Organization Address City/[facility]/Zipcode Phone Number [facility] [address] [place] [address] * Manual differential (04/10/2018 4:37 AM LOCATOR SPECIALIST) Manual differential PERFORMED [facility] Neutrophils 74.0 (H) 39.0 - 69.0 % [facility] Lymphocytes 25.0 25.0 - 45.0 % [facility] Monocytes 1.0 0.0 - 10.0 % [facility] Eosinophils 0.0 0.0 - 5.0 % [facility] Basophils 0.0 0.0 - 1.0 % [facility] Metamyelocytes 0 % [facility] Promyelocytes 0 % [facility] Platelet slide review Decreased (A) [facility] Anisocytosis Moderate [facility] Polychromasia Moderate [facility] Ovalocytes Moderate [facility] Performing Organization Address City/[facility] Phone Number [facility] DEPARTMENT OF [address] [place] [address] PATHOLOGY AND GENOMIC MEDICINE [address] * Fibrinogen (04/10/2018 4:37 AM LOCATOR SPECIALIST) Fibrinogen 313 200 - 450 mg/dL [facility] Specimen Blood Performing Organization Address City/[facility] Phone Number [facility] DEPARTMENT OF [address] [place] [address] PATHOLOGY AND [facility]INE [address] * D-dimer (04/10/2018 4:37 AM LOCATOR SPECIALIST) D-dimer 14.49 (H) 0.00 - 0.40 ug/mL FEU [facility] Comment: HOSPITAL Units are ug/ml Fibrinogen Equivalent [...] and malignancies. Specimen Blood Performing Organization Address City/[facility]/Zipcode Phone Number [facility] DEPARTMENT OF [address] [place] [address] PATHOLOGY AND GENOMIC MEDICINE [facility] [address] [place] [address] * Gram stain (04/09/2018 10:00 AM LOCATOR SPECIALIST) Gram stain result No WBC's or organisms seen. [facility] Comment: HOSPITAL Specimen Information Specimen Source: Urine Specimen Site: [place] Specimen Urine - [place] Performing Organization Address [facility]/Zipcode Phone Number [facility] DEPARTMENT OF [address] [place] [address] PATHOLOGY AND GENOMIC MEDICINE [facility] [address] [place] [address] * Us duplex venous lower extremity (04/08/2018 5:52 PM LOCATOR SPECIALIST) Narrative Performed At [facility] Vascular Ultrasound Laboratory Lower Extremity Venous Report [address] [place] [address] Pat.Name:LORI REID Ariel Pat.ID:[id number] .Date: 04/08/2018 Refer.MD:TYREE CABRERA MD Exam Time: 5:18:00 PMStudy Type:LE Venous DOBAge:1935,82Y Sex: MALE Sonogrphr: Howard Almeida RVT Pat. Stat.:Inpatient Room:[id number]-UWcmzUcu: , CPT - 4: 46508 Echo Event ID:[id number] Order ID:[id number] Reason for Study:Leg edema and immobility Procedures:Colorflow, [...] Radiology Results In - 04/08/2018 9:53 PM [facility] Vascular Ultrasound Laboratory Lower Extremity Venous Report [address] [place] [address] Pat.Name: LORI REID Pat.ID: [id number] St.Date: 04/08/2018 Refer.MD: TYREE CABRERA MD Exam Time: 5:18:00 PM Study Type:LE Venous Age: 2 1935,82Y Sex: MALE Sonogrphr: Howard Almeida RVT Pat. Stat.:Inpatient Room: [address] Tape Vol: VB, CPT - 4: 54036 Echo Event ID:[id number] Order ID: [id number] Reason for Study:Leg edema and immobility Procedures:Colorflow, [...] Baldomero Urena MD, RPVI Performing Organization Address [facility] Phone Number [facility] [address] [place] [address] * MRA Neck Wo Contrast (04/08/2018 3:30 PM LOCATOR SPECIALIST) Narrative Performed At EXAMINATION:MRA NECK WO CONTRAST [facility] CLINICAL HISTORY:previous ICH COMPARISON:None. IMPRESSION: 3-D reconstructions are processed off-line. No narrowing by NASCET criteria of the cervical internal carotid arteries. No hemodynamically significant narrowing of the distal common carotid arteries or visualized extracranial vertebral arteries. [facility]-[id number] Procedure Note Interface, Radiology Results Incoming - 04/08/2018 4:01 PM LOCATOR SPECIALIST EXAMINATION: MRA NECK WO CONTRAST CLINICAL HISTORY: previous ICH COMPARISON: None. IMPRESSION: 3-D reconstructions are processed off-line. No narrowing by NASCET criteria of the cervical internal carotid arteries. No hemodynamically significant narrowing of the distal common carotid arteries or visualized extracranial vertebral arteries. [facility]-[id number] Performing Organization Address [facility] Phone Number [facility] [address] [place] [address] * MRA Head Wo Contrast (04/08/2018 3:12 PM LOCATOR SPECIALIST) Narrative Performed At [facility] EXAMINATION:MRA HEAD WO CONTRAST CLINICAL HISTORY:previous ICH COMPARISON:None. IMPRESSION: 3-D reconstructions were processed off-line. Large right cerebral hemisphere parenchymal hematoma displaces the right MCA branches without evidence of significant narrowing. No focal narrowing, aneurysmal dilatation or vascular malformation of the jena of Garcia vessels. [facility]-[id number] Procedure Note Interface, Radiology Results Incoming - 04/08/2018 4:06 PM LOCATOR SPECIALIST EXAMINATION: MRA HEAD WO CONTRAST CLINICAL HISTORY: previous ICH COMPARISON: None. IMPRESSION: 3-D reconstructions were processed off-line. Large right cerebral hemisphere parenchymal hematoma displaces the right MCA branches without evidence of significant narrowing. No focal narrowing, aneurysmal dilatation or vascular malformation of the jena of Garcia vessels. [facility]-[id number] Performing Organization Address [facility] Phone Number [facility] [address] [place] [address] * MRI Brain Wo Contrast (04/08/2018 3:00 PM LOCATOR SPECIALIST) Narrative Performed At EXAMINATION:MRI BRAIN WO CONTRAST [...] without hydrocephalus. Findings suggestive of amyloid angiopathy. [facility]-[id number] Procedure Note Interface, Radiology Results Incoming - 04/08/2018 4:05 PM LOCATOR SPECIALIST EXAMINATION: MRI BRAIN WO CONTRAST CLINICAL HISTORY: [...] without hydrocephalus. Findings suggestive of amyloid angiopathy. [facility]-[id number] Performing Organization Address [facility] Phone Number [facility] [address] [place] [address] * CT Head Wo Contrast (04/08/2018 9:16 AM LOCATOR SPECIALIST) Narrative Performed At EXAMINATION:CT HEAD WO CONTRAST [...] compared with 04/04/2018. Stable small intraventricular hemorrhage. [id number] Procedure Note Hm Interface, Radiology Results Incoming - 04/08/2018 9:29 AM LOCATOR SPECIALIST EXAMINATION: CT HEAD WO CONTRAST CLINICAL HISTORY: [...] compared with 04/04/2018. Stable small intraventricular hemorrhage. [id number] Performing Organization Address City/State/Zipcode Phone Number [facility] [address] [place] [address] * CT Head External Study (04/04/2018 5:37 PM LOCATOR SPECIALIST) Only the most recent of 2 results within the time period is included. Narrative Performed At This exam was not acquired at a [facility] facility and has not been [facility] interpreted by a [facility] Provider.The exam was imported into our imaging system for comparisons purposes. Performing Organization Address City/State/Zipcode Phone Number [facility] [address] [place] [address] * MRI Head External Study (03/28/2018 2:05 PM LOCATOR SPECIALIST) Narrative Performed At This exam was not acquired at a [facility] facility and has not been [facility] interpreted by a [facility] Provider.The exam was imported into our imaging system for comparisons purposes. Performing Organization Address City/[facility]/Zipcode Phone Number [facility] [address] [place] [address] after 09/12/2017 Insurance Payer Benefit Subscriber ID Type Phone Address Plan / Group MEDICARE MEDICARE xxxxxxxxxxx Medicare [place], [place] PART A AND B [employer] xxxxxxxxxx Commercial L [employer] [place] Advance Directives Patient has advance care planning documents, and code status on file. For more i nformation, please contact: Dax Diana [address] [place] [address] Date Inactivated Comments Code Status Date Activated 05/21/2018 8:56 PM Modified Code 04/09/2018 4:15 PM Modified Code restrictions: No Intubation No Chest Compressions No Electrical Shocks Code Status decision reached by: Legal Surrogate Name of Surrogate: ginny Reid Surrogate Relation: 2. Spouse
[2018-09-13] MEDS: VANCOMYCIN HCL 1GM/NS 250 ML BAG IV SCH (23:28)
[2018-09-13] MEDS ORDERED: LEVOFLOXACIN 750MG/D5W 150ML IV SCH (23:30)
[2018-09-14] VITALS (60 sets, daily range): BP systolic 79–125; BP diastolic 34–71
[2018-09-14] MEDS ORDERED: METOPROLOL SUCC25 MG (01:09)
[2018-09-14] MEDS ORDERED: MEGESTROL400 MG/10 PO (01:09)
[2018-09-14] MEDS ORDERED: FLOMAX0.4 MG PO (01:09)
[2018-09-14] MEDS ORDERED: TYLENOL WITH C1 EACH PO (01:09)
[2018-09-14] MEDS ORDERED: LIPITOR20 MG (01:09)
[2018-09-14] MEDS ORDERED: MUCINEX DM ER1 EACH PO (01:09)
[2018-09-14] MEDS ORDERED: ALBUTEROL0.63 MG/3 BLADIN (01:09)
--- NOTE | 2018-09-14 01:55 | NUR ---
SPECIALITY BED ORDERED WITH SIZE ALLAN. SPOKE TO BRADLY. CONFIRMATION# [id number]. BED TO BE DELIVERED SOME TIME TODAY 09/14/18.
[2018-09-14] MEDS: ALBUTEROL SULF 0.083% NEB SOLN 3 ML NEB NEB SCH ×6 (02:00→22:30)
[2018-09-14] MEDS: IPRATROPIUM BROMIDE 0.02% 2.5 ML NEB NEB SCH ×4 (02:00→19:20)
[2018-09-14] MEDS: SODIUM CHLORIDE 0.9% 1000ML 1,000 ML IV SCH ×3 (04:50→22:06)
[2018-09-14] MEDS: ACETAMINOPHEN 1000 MG/100 ML IV PRN ×3 (05:18→17:15)
[2018-09-14 05:37] LABS: BASOPHILS # (AUTO) 0.1 (0.0-0.1); BASOPHILS % 0.3 % (0.0-1.0); EOSINOPHILS % 0.1 % (0.0-6.0); HEMOGLOBIN 9.9 g/dL (14.0-18.0); LYMPHOCYTES # (AUTO) 1.5 (1.0-3.2); LYMPHOCYTES % 9.9 % (18.0-39.1); MEAN CORPUSCULAR HEMOGLOBIN 31.5 pg (28-32); MEAN CORPUSCULAR HGB CONC 31.9 g/dL (31-35); MEAN CORPUSCULAR VOLUME 98.7 fL (81-99); MONOCYTES # (AUTO) 0.7 (0.2-0.8); MONOCYTES % 4.7 % (4.4-11.3); NEUTROPHILS # (AUTO) 12.4 (2.1-6.9); PLATELET COUNT 133 x10e3/uL (140-360); RED BLOOD COUNT 3.14 x10e6/uL (4.3-5.7); RED CELL DISTRIBUTION WIDTH 17.1 % (11.7-14.4)
[2018-09-14 05:57] LABS: ALANINE AMINOTRANSFERASE 37 IU/L (0-55); ALBUMIN 2.7 g/dL (3.5-5.0); ALKALINE PHOSPHATASE 800 IU/L (40-150); ANION GAP 13.5 mmol/L (8-16); BLOOD UREA NITROGEN 26 mg/dL (7-26); BUN/CREATININE RATIO 35 (6-25); CALCIUM 8.9 mg/dL (8.4-10.2); CARBON DIOXIDE 17 mmol/L (22-29); CHLORIDE 110 mmol/L (98-107); CREATININE, SERUM 0.75 mg/dL (0.72-1.25); EST GLOMERULAR FILTRATION RATE > 60 ML/MIN (60-); GLUCOSE 118 mg/dL (74-118); POTASSIUM 3.5 mmol/L (3.5-5.1); SODIUM 137 mmol/L (136-145)
[2018-09-14 07:12] LABS: CREATINE KINASE MB 2.1 ng/mL (0-5.0)
[2018-09-14] MEDS ORDERED: METOPROLOL TARTRATE INJ 1 MG/ML VIAL IV PRN (10:45)
[2018-09-14] MEDS: VANCOMYCIN HCL 1GM/NS 250 ML BAG IV SCH (11:58)
--- NOTE | 2018-09-14 12:15 | NUR ---
WOUND CARE CONSULTATION: INITIAL EVALUATION Patient admitted from home to ER for Fever, hypotension and AMS. DX: PNA, Left Hip Cellulitis, Infected Stage IV Pressure Ulcer. HX: Spleen Ca, Right foot SX, CVA. Dysphagia. Dr[facility] Patient on IV Vancomycin, and Levaquin. Patient is NPO. Wound Care consulted for evaluation and recommendation of Sacral Ulcer. PATIENT VISIT: Patient Awake, Unable to follow direction. Stiff to turn. Family friend at bedside. Unable to obtain accurate history. Patient recently discharged from [facility] and states had unsuccessful attempts of VAC Placement and was constantly placed back on NS WTD Dressings. Patient discharged home was supposed to have home health visit to resume wound care but " no one showed up" and rescheduled for today 09/14/18. Denies delivery of NPWT equipment at home. - Sacral Ulcer- full thickness ulceration with friable wound base and areas of dti in wound bed. Undermining present with deepest measuring 4.5 cm from 8 - 4 0'clock. Wound Edges rolled and irregular. Periwound with denuded edges. Maroon/ Purpled. The wound does not look VAC appropriate at this time due to wound's poor condition and recent history of many recent failed application attempts. Patient's skin is friable and very high risk for skin tears. - Left Forearm presents with large skin tear. 8x8cm. serosanguineous fluid that was covered with ill fitting hydrocolloid dressing. Dressing gently removed, irrigated with NSS. Irregular edges noted 100% granular tissue. Bilateral Heel Protectors in place, removed and re-applied. No Pressure Ulcers Identified. Aly Score 9 IMPRESSION: 1. Sacral Wound- Non Healing Stage IV- Pressure Ulcer- Present On Admission. 2. Left Forearm- Skin Tears RECOMMENDATION: 1. Sacral Wound- Stage IV- Pressure Ulcer Present On Admission - Cleanse wound with NS and 4x4 gauze. - Saturate 4x4 gauze with Silvadene and pack lightly over wound bed and cover with Allevyn Foam Sacrum Dressing Daily. 2. Left Forearm- Skin Tear: - Xeroform Single Layer and Cover with Kerlix Wrap Daily. 3. Rotational Air Mattress. 4. Turn and reposition patient every 2 hours 5. Continue Bilateral Heel Protectors, 6. Strict PUP PROTOCOL 7. Skin Tear Precautions Thank you for consulting with Wound Care. Addendum: 09/14/18 at 1235 by Ruben Pulido RN Amended: Links added. Addendum: 09/14/18 at 1243 by Ruben Pulido RN Sacral Wound- Culture Results Pending
[2018-09-14 12:44] LABS: ANISOCYTOSIS SLIGHT; BAND NEUTROPHILS % (MANUAL) 13 %; HYPOCHROMASIA SLIGHT; LYMPHOCYTES % (MANUAL) 16 % (19-48); METAMYELOCYTES % (MANUAL) 1 % (0-0); MONOCYTES % (MANUAL) 10 % (3.4-9.0); MYELOCYTES % (MANUAL) 2 % (0-0); NEUTROPHILS % (MANUAL) 58 % (40-74); POIKILOCYTOSIS SLIGHT
[2018-09-14 12:45] LABS: RBC MORPHOLOGY COMMENT NORMAL
[2018-09-14 12:46] LABS: PLATELET ESTIMATE SLIGHTLY DECREASED; PLATELET MORPHOLOGY COMMENT NORMAL
[2018-09-14] MEDS: CEFEPIME 1GM/NS 0.9% 50 ML 50 ML IV SCH (13:04)
[2018-09-14] MEDS: METRONIDAZOLE 500MG/NS 100ML 100 ML IV SCH ×2 (13:55→22:06)
--- NOTE | 2018-09-14 13:56 | NUR ---
Nutrition Intervention Note RD Recommendation(s) for Physician: -ADAT to regular diet as medically appropriate; diet texture per FLATWORK ASSEMBLER -Rec MVi/minerals, zinc sulfate 220mg (x1/day), vitamin C 500mg BID for 10 days to support wound healing -Rec Greg BID to support wound healing -Rec Ensure Enlive BID if PO <50% -Assist with feeding as needed Plan of Care: RD following, monitoring for tolerance and adequacy Nutrition reason for involvement: Nutrition Risk Trigger MST, Pressure ulcer RD Assessment 08/29 83yo M, who was admitted from home to ER for Fever, hypotension and AMS. Pt was discussed during AM rounds. Per RN, pt was recently discharged from [place] for similar issues. MBS and swallow evaluation were ordered. Visited pt in the room. Caregiver on bedside provided info. Per caregiver, pt was eating 50-75% of his meals recently. He has been doing well with his PO intake. was feeding pt pureed foods and thin liquids (ice-chips/water) at home. Pt was also getting Mighty Shakes and Greg at home. Caregiver thinks his BW has been stable in the last few months with adequate PO intake. Some signs of moderate muscle/fat loss upon NFPA. Wound care following for Stage IV pressure ulcer. Will continue to monitor and follow. Principal Problems/Diagnoses: PNA, Left Hip Cellulitis, Infected Stage IV Pressure Ulcer. PMH: Spleen Ca, Right foot SX, CVA. Dysphagia. GI: abdomen round, flatus present Skin: 1. Sacral Wound- Non Healing Stage IV- Pressure Ulcer- Present On Admission. 2. Left Forearm- Skin Tears Labs: (09/14) Alk phosphate 800 H Meds: abx, IVF, norepinephrine at 9.4mcg Ht: 69in Wt: 145lb BMI: 21.44kg/m2 IBW: 160lb Malnutrition Evaluation (09/14/2018) The patient does not meet criteria for a specified degree of malnutrition at this time. Will re-evaluate at follow-up as appropriate. Fat loss: Moderate clavicle protrusion Muscle loss: Moderate protrusion of acromion process, temporal depression Supporting Evidence: Fluid accumulation: unable to evaluate Functional Status: unable to evaluate Nutrition Prescription (Diet Order): NPO Estimated Nutritional Needs: Calories: 1650 2310kcal(25-35kcal/kg/d) Weight used: CBW Protein: 99 132g(1.5-2g/kg/d) Weight used: CBW Diet Adequacy: Not meeting calorie needs, Not meeting protein needs NPO Diet Education Needs Assessment: Diet education indicated, but patient not appropriate for education at this time. Nutrition Care Level: mod Nutrition Diagnosis: Predicted suboptimal nutrient intake related to NPO as evidenced by pt requiring MVi w/ minerals for wound healing. Goal: Patient will meet 75-100% of estimated needs by follow up Progress: N/A Interventions: Texture-modified diet, Commercial beverage, Commercial food, Multivitamin/mineral supplement therapy, Collaboration with other providers Monitoring/Evaluation: Total energy intake, Total protein intake, Prescription medication, Modified diet, Liquid supplement, Weight change Signed: Janine Medina MS, RD, LD
--- NOTE | 2018-09-14 13:57 | NUR ---
SEGOVIA CATHETER EXCHANGED. 16FR WITH 10 CC NS BALLOON
[2018-09-14 16:11] LABS: CREATINE KINASE MB 2.2 ng/mL (0-5.0)
--- NOTE | 2018-09-14 17:16 | NUR ---
TRANSFERRED PATIENT ONTO ROTATIONAL BED
--- NOTE | 2018-09-14 19:36 | Consultation ---
DATE OF CONSULTATION: REASON FOR CONSULTATION: Sepsis. Recommendations on antibiotic. HISTORY OF PRESENT ILLNESS: This patient who is currently in the intensive care unit does not provide any meaningful information. The caregiver is sitting at the bedside. The patient who is in an elderly gentleman, who comes in with fever, chills, and altered mental status. The patient was recently in [place]. He had decubitus ulcer, which was treated with IV antibiotic and he was discharged home. The patient was there for a few days and the patient comes in with altered mental status. Apparently, Mr. Buchanan yesterday became altered with fever and chills. The patient is currently in the intensive care unit, noncommunicative. The patient who has history of dementia, history of decubitus ulcer, bed ridden history, getting progressively worse over the last few months. The patient had history of complicated UTI. History of benign prostatic hypertrophy before recently been declining, comes in with altered mental status after nausea and vomiting. PAST MEDICAL HISTORY: Dementia and benign prostatic hypertrophy. PAST SURGICAL HISTORY: As above. ALLERGIES: PENICILLIN. SOCIAL HISTORY: There is no smoking, drug abuse, or alcohol abuse. FAMILY HISTORY: Otherwise noncontributory. REVIEW OF SYSTEMS: Could not be obtained. He is confused. LABORATORY DATA: White count on admission was 7.75, hemoglobin of 9.0. Today, white count 14.9. His sodium is 137, potassium 3.5, creatinine 0.75, alkaline phosphatase is 800. Blood cultures are still pending. There are gram-positive cocci on the smear. He had a chest x-ray, which showed interstitial opacities. Interstitial opacities could be congestive heart failure. PHYSICAL EXAMINATION: GENERAL: He is lethargic, noncommunicative. VITAL SIGNS: Temperature T-max 100.2, heart rate 89, respiration 20, blood pressure 107/53. Stable currently afebrile. As mentioned above had low fever. HEENT: Normocephalic. NECK: Supple. CHEST: Few rhonchi bilateral, coarse. COR: S1, S2. No S3, S4 or no murmur. ABDOMEN: Soft. Bowel sounds present. No tenderness. No hepatosplenomegaly. EXTREMITIES: No edema. The patient who is currently in ICU does not provide any meaningful information as mentioned above. He is currently on vancomycin, Atrovent, and levofloxacin. IMPRESSION: 1. Sepsis present on admission. 2. Bacteremia, concerned about aspiration pneumonia. I am not so sure if the bacteremia is true versus contamination. Agree with vancomycin. We will follow trough. Recheck CBC. Recheck Chem panel. 3. Altered mental status secondary to sepsis. 4. Underlying decubitus ulcer. 5. Debility. 6. History of stroke. PLAN: I would recommend to continue vancomycin, discontinue Levaquin, add Invanz for now. We were also concerned about fluid overload. We will obtain a BMP. We need to discuss the DNR status with the . She is not here at present time, but we discussed with Dr. Orozco. We will follow with you. MD ADELA Lerma/RAZIA /[id number]
[2018-09-15] VITALS (37 sets, daily range): BP systolic 83–121; BP diastolic 38–73
--- NOTE | 2018-09-15 00:36 | History and Physical ---
The patient is an 83-year-old gentleman comes in with sacral decubitus ulcer. The patient comes in with hypertension, altered mental status, brought in by EMS. HISTORY OF PRESENTING ILLNESS: Mr. Dewayne Reid with a history of CVA, history of stage IV splenic cancer, history of hypertension, was in usual state of health until the patient was noticed to have acute mental status and the patient's oxygen demands have increased. The patient came to the hospital, he was found to have sepsis probably from the decubitus ulcer and the patient is admitted to the hospital for the same. The patient has CVA and is very slow to respond. MEDICATIONS: He takes at home are acetaminophen with codeine, albuterol sulfate, atorvastatin, Lipitor 20 mg, guaifenesin Mucinex DM ER one tablet 3 times a day, Megace 400 mg daily, metoprolol 25 mg ER, tamsulosin 0.4 mg daily too. PAST MEDICAL HISTORY: Also includes . ALLERGIES: THE PATIENT IS ALLERGIC TO PENICILLIN. REVIEW OF SYSTEMS: Could not be gotten, the patient is not able to communicate very well. PHYSICAL EXAMINATION: VITAL SIGNS: Temperature is 99.6, pulse of 97, respirations of 18, blood pressure is 109/43, and pulse oximetry of 98% on 3 L of oxygen. HEENT: Normocephalic, atraumatic. The patient is cachectic and has contracture in the left upper extremities. CVS: Regular rate and rhythm. ABDOMEN: Nontender and scaphoid. Indwelling catheter on arrival. The patient's back with multiple excoriations and also patient with a stage IV sacral decubitus ulcers. EXTREMITIES: No clubbing, no cyanosis, no edema. Positive for contraction in the left upper extremities. NEUROLOGIC: Altered mental status with lethargy. The patient is slow to respond. LABORATORY VALUES: The patient's white count is 7000, this morning, the patient's white count is 14.90, hemoglobin of 9.9, hematocrit of 31.0, and platelet count is 133. Chemistries show a sodium of 137, potassium of 3.5, BUN of 26, creatinine 0.775, alkaline phosphatase is 800. Troponins trending from 0.195-0.916-1.557. IMAGING STUDIES: Chest x-ray, no acute bony abnormalities, prominence of cardiac silhouette likely due to AV projection, interstitial opacities extending from nikki suggesting interstitial edema may represent atelectasis or pneumonia. The patient has been started on albuterol and Atrovent treatments. Flagyl and cefepime have been given. Vancomycin was also given for further decubital ulcers. The patient is also getting wound care, at this time metoprolol 2.5 mg every 4 hours has been started. The patient is kept n.p.o. at this time. Fluids are running. The patient has a central line placed and also done. FINAL DIAGNOSES: Sepsis with hypertension. The patient initially got 2 L of normal saline bolus, Tylenol was given, Levaquin was given 750, vancomycin was given, and Levophed is on board. Would be sepsis again with shock, altered mental status or septic encephalopathy, bacterial pneumonia, and chronic urinary tract infection and infected stage IV decubitus ulcer, which is present on arrival. Further recommendation and clinical course, we will continue to monitor the patient. Continue antibiotics. Labs will be done and a consult with ID can be done and nutritional consult can be done too. Blood cultures also will be done and they are pending. MD IKE Singer/JOBYL /[id number]
[2018-09-15] MEDS: VANCOMYCIN HCL 1GM/NS 250 ML BAG IV SCH ×2 (00:53→14:30)
[2018-09-15] MEDS: CEFEPIME 1GM/NS 0.9% 50 ML 50 ML IV SCH ×3 (02:03→23:03)
[2018-09-15] MEDS: ALBUTEROL SULF 0.083% NEB SOLN 3 ML NEB NEB SCH ×6 (02:05→22:35)
[2018-09-15] MEDS: IPRATROPIUM BROMIDE 0.02% 2.5 ML NEB NEB SCH ×4 (02:05→19:00)
[2018-09-15] MEDS: NOREPINEPHRINE 8 MG/D5W 250 ML 250 ML IV PRN (02:57)
[2018-09-15] MEDS: SODIUM CHLORIDE 0.9% 1000ML 1,000 ML IV SCH ×3 (04:45→20:45)
--- NOTE | 2018-09-15 05:00 | NUR ---
Received report from Alysia TAVAREZ.
[2018-09-15 05:19] LABS: BASOPHILS # (AUTO) 0.1 (0.0-0.1); BASOPHILS % 0.4 % (0.0-1.0); EOSINOPHILS % 0.1 % (0.0-6.0); HEMATOCRIT 26.3 % (38.2-49.6); HEMOGLOBIN 8.5 g/dL (14.0-18.0); LYMPHOCYTES # (AUTO) 1.4 (1.0-3.2); LYMPHOCYTES % 12.7 % (18.0-39.1); MEAN CORPUSCULAR HEMOGLOBIN 32.3 pg (28-32); MEAN CORPUSCULAR HGB CONC 32.3 g/dL (31-35); MONOCYTES # (AUTO) 0.5 (0.2-0.8); MONOCYTES % 4.1 % (4.4-11.3); NEUTROPHILS % 81.2 % (38.7-80.0); PLATELET COUNT 86 x10e3/uL (140-360); RED BLOOD COUNT 2.63 x10e6/uL (4.3-5.7); RED CELL DISTRIBUTION WIDTH 16.8 % (11.7-14.4)
[2018-09-15 05:41] LABS: ALANINE AMINOTRANSFERASE 26 IU/L (0-55); ALBUMIN 2.3 g/dL (3.5-5.0); ALBUMIN/GLOBULIN RATIO 0.9 (0.8-2.0); ALKALINE PHOSPHATASE 539 IU/L (40-150); ANION GAP 12.9 mmol/L (8-16); BLOOD UREA NITROGEN 24 mg/dL (7-26); BUN/CREATININE RATIO 39 (6-25); CALCIUM 8.7 mg/dL (8.4-10.2); CARBON DIOXIDE 16 mmol/L (22-29); CHLORIDE 116 mmol/L (98-107); CREATININE, SERUM 0.61 mg/dL (0.72-1.25); EST GLOMERULAR FILTRATION RATE > 60 ML/MIN (60-); GLUCOSE 118 mg/dL (74-118); SODIUM 142 mmol/L (136-145)
[2018-09-15 05:48] LABS: POTASSIUM 2.9 mmol/L (3.5-5.1)
[2018-09-15] MEDS: METRONIDAZOLE 500MG/NS 100ML 100 ML IV SCH ×3 (06:07→21:30)
--- NOTE | 2018-09-15 06:10 | NUR ---
Call placed for Dr. Orozco to report abnormal AM lab results, awaiting return call
--- NOTE | 2018-09-15 06:16 | NUR ---
Dr Orozco returned call - orders received for 40 meq potassium IV x 1
[2018-09-15] MEDS ORDERED: POTASSIUM CHLORIDE 20MEQ/100ML 200 ML IV ONE (06:30)
[2018-09-15 07:24] LABS: BAND NEUTROPHILS % (MANUAL) 13 %; LYMPHOCYTES % (MANUAL) 21 % (19-48); MONOCYTES % (MANUAL) 2 % (3.4-9.0); NEUTROPHILS % (MANUAL) 64 % (40-74)
[2018-09-15 07:25] LABS: BURR CELLS MODERATE
[2018-09-15 07:26] LABS: ANISOCYTOSIS SLIGHT; PLATELET ESTIMATE MODERATELY DECREASED; PLATELET MORPHOLOGY COMMENT NORMAL; POLYCHROMASIA FEW; RBC MORPHOLOGY COMMENT ABNORMAL; SCHISTOCYTES RARE
[2018-09-15] MEDS: SILVER SULFADIAZINE 50GM CREAM TOP SCH (07:59)
--- NOTE | 2018-09-15 10:10 | NUR ---
LEVOPHED TITRATED OFF
--- NOTE | 2018-09-15 11:33 | Progress Note ---
DATE: SUBJECTIVE: This 83-year-old comes in with sepsis, probably pneumonia and/or urinary tract infection or surgical decubitus ulcer. The patient currently is more alert compared to yesterday. No chest pains noted. The patient has been n.p.o. in lieu of failed swallow evaluation. The patient will have a swallow evaluation today by the nurse. Currently talkative and I did meet with at bedside. The patient's history is more apparent right now. OBJECTIVE: VITAL SIGNS: Currently, temperature is 99.3, pulse of 100, respirations of 23, blood pressure is 113/52. The patient is on O2 3 L of nasal cannula. HEENT: Normocephalic, atraumatic. The patient is cachectic. The patient is contracted. The patient is edentulous. CVS: S1, S2 normal. Regular rate and rhythm. ABDOMEN: Nontender, nondistended. EXTREMITIES: Contracted left upper extremity and right lower extremity with marked atrophy of the muscles. The patient also has atrophy of abdominal muscles and has also scaphoid abdomen. LABORATORY VALUES: Today, his hemoglobin is 8.5, hematocrit of 26.3, white count of 11, and platelet count of 86 has dropped from yesterday. The patient's neutrophil count, no left shift seen. MICROBIOLOGY: Gram stain wound culture preliminary shows no organism. Urine culture re-intubation in progress. Blood cultures have been negative so far and Gram stain for blood culture growth detected and gram-positive cocci in pairs have been seen. IMAGING STUDIES: None today. ASSESSMENT: Acute sepsis secondary to decubitus ulcer, sepsis present on admission, bacteremia probably from aspiration pneumonia, altered mental status secondary to sepsis, decubitus ulcer, cachexia, debility, malnutrition, history of CVA with contractures. PLAN: Continue Invanz at this time. Vancomycin has been added. We will discuss with the , continues to make the patient DNR. The patient's troponins were elevated yesterday mildly. Troponin leak has been seen. We will continue to monitor the patient at this time. The patient's does not want to proceed with Cardiology consult. Wound care consult with Dr. Meehan and since the patient is more awake, a bedside swallow evaluation will be performed by the nurses. Further recommendation per clinical course. We will advance the diet if the patient is able to tolerate food, however, with a history of aspiration it might be counterproductive. Further recommendation per clinical course. We will continue to monitor the patient and the case has been discussed with in detail. MD IKE Singer/MODL /[id number]
--- NOTE | 2018-09-15 11:57 | Diagnostic Imaging Report ---
Exam: Sacrococcyx History: Osteomyelitis Comparison: None. Findings: Limited evaluation due to x-ray penetration. Decubitus ulceration overlying the sacrum. Moderate amount of stool overlying the sacrum on the AP image. Impression: Decubitus ulceration. Limited evaluation for osteomyelitis. Consider MRI. Signed by: Dr. Barrett Cyr M.D. on 09/15/2018 11:54 AM
--- NOTE | 2018-09-15 12:04 | NUR ---
TRANSPORTED PATIENT TO RADIOLOGY FOR SACRAL XRAY. TOLERATED WELL
[2018-09-15 12:22] LABS: POTASSIUM 3.4 mmol/L (3.5-5.1)
[2018-09-15 12:23] LABS: VANCOMYCIN,TROUGH 16.4 ug/mL (5.0-10.0)
--- NOTE | 2018-09-15 15:00 | NUR ---
patient has been npo due to possible aspiration. stated that we are starving patient. unable to get swallow eval done today. notified dr herrera and order to give pleasure feeds for now as long as and family understand risk for aspiration and dnr status.
[2018-09-15] MEDS ORDERED: ACETAMINOPHEN 1000 MG/100 ML 100 ML IV ONE (15:45)
--- NOTE | 2018-09-15 17:32 | NUR ---
re-heated dinner tray per request. at bedside feeding him uzbek food she brought in.
--- NOTE | 2018-09-15 17:55 | Consultation ---
DATE OF CONSULTATION: 09/15/2018 Wound Consultation. Thank you Dr. Ernesto Odonnell for asking us to see this patient. HISTORY OF PRESENT ILLNESS: An 83-year-old male patient has been suffering from severe deconditioning from multiple medical problems including stroke, stage IV splenic cancer, has been in and out of hospital, recently was at [facility], discharged home, brought to the hospital with a change in mental status. The patient has stage IV pressure ulcer with palpable bone, suspect osteo. He has larger wound with undermining and maceration to the periwound area. Wound consult was called. The patient is awake and alert. He is still on oral diet. However, he is emaciated and malnourished. PAST MEDICAL HISTORY: Stroke and splenic cancer. MEDICATIONS: Atorvastatin 10 mg daily. Megace, albuterol, tamsulosin 0.4 mg b.i.d., metoprolol 25 mg half tablet. SOCIAL HISTORY: No history of smoking or alcohol. ALLERGIES: TO PENICILLIN. SURGICAL HISTORY: Splenectomy. PHYSICAL EXAMINATION: VITAL SIGNS: Blood pressure . HEENT: Normal. NECK: No JVD. LUNGS: Clear. CVS: Normal. ABDOMEN: Soft. EXTREMITIES: Lower extremities contracted skin. The patient is bed-bound, needs assistance for ADLs. SKIN: The patient has large sacral pressure ulcer stage IV, measures 15 x 15 x 2 cm, 80% pink, 20% slough bone palpable, copious drainage with a periwound maceration present undermining for 2 cm between and 12 o'clock position present. ASSESSMENT: Stage IV pressure ulcer, suspect osteomyelitis and severe deconditioning, malnutrition. PLAN: We will apply Aquacel, Mepilex, zinc oxide, and Calazime to periwound area for maceration. X-ray of the sacrum for osteo. Thank you for consultation. MD PAULETTE Tai/JOBYL /[id number]
--- NOTE | 2018-09-15 19:32 | NUR ---
bedside swallow evaluation to be completed 09/16/2018
[2018-09-16] VITALS (17 sets, daily range): BP systolic 90–135; BP diastolic 41–62
[2018-09-16] MEDS: IPRATROPIUM BROMIDE 0.02% 2.5 ML NEB NEB SCH ×4 (02:15→19:35)
[2018-09-16] MEDS: ALBUTEROL SULF 0.083% NEB SOLN 3 ML NEB NEB SCH ×5 (02:15→19:35)
[2018-09-16] MEDS: METRONIDAZOLE 500MG/NS 100ML 100 ML IV SCH ×3 (05:00→22:00)
[2018-09-16 05:23] LABS: BASOPHILS % 0.3 % (0.0-1.0); EOSINOPHILS % 0.2 % (0.0-6.0); HEMATOCRIT 22.1 % (38.2-49.6); HEMOGLOBIN 7.4 g/dL (14.0-18.0); LYMPHOCYTES # (AUTO) 1.2 (1.0-3.2); MEAN CORPUSCULAR HEMOGLOBIN 32.3 pg (28-32); MEAN CORPUSCULAR HGB CONC 33.5 g/dL (31-35); MEAN CORPUSCULAR VOLUME 96.5 fL (81-99); MONOCYTES # (AUTO) 0.3 (0.2-0.8); MONOCYTES % 3.1 % (4.4-11.3); NEUTROPHILS # (AUTO) 8.3 (2.1-6.9); NEUTROPHILS % 81.5 % (38.7-80.0); PLATELET COUNT 67 x10e3/uL (140-360); RED BLOOD COUNT 2.29 x10e6/uL (4.3-5.7); RED CELL DISTRIBUTION WIDTH 16.7 % (11.7-14.4)
[2018-09-16 05:43] LABS: ANION GAP 11.7 mmol/L (8-16); BLOOD UREA NITROGEN 22 mg/dL (7-26); BUN/CREATININE RATIO 39 (6-25); CALCIUM 8.6 mg/dL (8.4-10.2); CARBON DIOXIDE 15 mmol/L (22-29); CHLORIDE 119 mmol/L (98-107); CREATININE, SERUM 0.56 mg/dL (0.72-1.25); EST GLOMERULAR FILTRATION RATE > 60 ML/MIN (60-); GLUCOSE 111 mg/dL (74-118); SODIUM 143 mmol/L (136-145)
[2018-09-16 05:46] LABS: POTASSIUM 2.7 mmol/L (3.5-5.1)
[2018-09-16] MEDS: CEFEPIME 1GM/NS 0.9% 50 ML 50 ML IV SCH ×3 (05:56→23:00)
[2018-09-16] MEDS: SILVER SULFADIAZINE 50GM CREAM TOP SCH (05:59)
[2018-09-16] MEDS ORDERED: SODIUM CHLORIDE 0.9% 250ML 250 ML IV ONE (06:30)
[2018-09-16] MEDS ORDERED: POTASSIUM CHLORIDE 20MEQ/100ML 200 ML IV ONE (06:30)
[2018-09-16] MEDS: SODIUM CHLORIDE 0.9% 1000ML 1,000 ML IV SCH ×3 (07:15→20:45)
[2018-09-16] MEDS: ACETAMINOPHEN 1000 MG/100 ML IV PRN ×2 (08:30→21:30)
--- NOTE | 2018-09-16 09:57 | Progress Note ---
DATE: SUBJECTIVE: The patient is an 83-year-old gentleman with history of CVA, history of contractures, history of aspiration pneumonia, and currently continues to have sacral cellulitis. The patient is also getting wound care and also is currently on IV antibiotics. The patient is on cefepime and metronidazole at this time. The patient has aspiration as noticed above. OBJECTIVE: GENERAL: The patient is verbal and can be aroused, goes back to sleep immediately. VITAL SIGNS: At this time, temperature is 100.5, pulse of 108, respirations of 30, blood pressure is 124/52, and pulse oximetry of 97% O2 at 2 L of nasal cannula. HEENT: Normocephalic and atraumatic. Pupils are reactive to light and accommodation. CVS: S1, S2 normal. Regular rate and rhythm. ABDOMEN: Scaphoid. EXTREMITIES: Positive for atrophy and left-sided contractures. The patient also is cachectic. LABORATORY DATA: Today's white count is 10.17, hemoglobin of 7.4, and hematocrit of 22.1. The patient's chemistry shows sodium of 143, potassium of 2.7, BUN of 11.22, and creatinine of 0.56. Magnesium is pending. Troponin did rise to 1.557. Did talk to the 2 days prior to this and did not want Cardiology, but there are some tracings showing ST-elevation. We will go ahead and consult Dr. Arceo for it. ASSESSMENT: 1. Cellulitis of the cecum. 2. Aspiration pneumonia. 3. Chest pain. 4. Hypertension. 5. EKG changes. 6. Do not resuscitate status. 7. The patient with hyperkalemia. PLAN: Plan is to continue with antibiotics. The patient is on Flagyl for aspiration, aspiration precautions to be given. I had a long discussion with the family yesterday. The patient wishes to have comfort food. explained about the risks of aspiration, but she still wanted to go ahead and do this. Speech is to see the patient today and make their recommendation concurrently on comfort food. For ST-elevation, we will do chest x-ray. Troponins to be repeated and further recommendation per clinical course. Also, a consult with Dr. Arceo has been done. Consult with wound care and a consult with Dr. Hammer also in place. MD IKE Singer/JOBYL /[id number]
--- NOTE | 2018-09-16 11:30 | NUR ---
RCD PT FROM ICU BY BED PT RESTING ON BED VITALS CHECKED FAMILY AT BED SIDE BED LOW AND LOCKED CALL LIGHT IN REACH
[2018-09-16] MEDS ORDERED: SODIUM CHLORIDE 0.9% 250ML 250 ML ONE (14:19)
--- NOTE | 2018-09-16 14:20 | NUR ---
BLOOD TRANSFUSION STARTED AFTER VERIFIED WITH ANOTHER RN AND AFTER VITALS SPENT 15 MTS WIT PT PT RESTING ON BED FAMILY AT BED SIDE
--- NOTE | 2018-09-16 16:55 | NUR ---
PT WENT TO PROCEDURE IN SAFE CONDITION Addendum: 09/16/18 at 1904 by Ashwini Odonnell RN WRONG TIME [id number]
[2018-09-16] MEDS: POTASSIUM CHLORIDE 20MEQ/100ML 100 ML IV ONE ×2 (17:26→18:00)
--- NOTE | 2018-09-16 17:45 | NUR ---
BLOOD TRANSFUSION COMPLETED VITALS CHECKED PT RESTING ON BED FAMILY AT BED SIDE
--- NOTE | 2018-09-16 18:29 | Consultation ---
DATE OF CONSULTATION: Cardiology Consultation CONSULTING PHYSICIAN: Dr. Orozco. REASON FOR CONSULTATION: Arrhythmia. HISTORY OF PRESENT ILLNESS: Mr. Reid is an 83-year-old male with pertinent past medical history of CVA from 2018, splenic cancer stage IV, hypertension, and decubitus ulcer. Of whom the reports was in his usual state of health, until he was noted to have changes in mental status and increased oxygen demand. reports that this patient has been hospitalized since March 2018 since the stroke, often on in different hospital institutions and for these reasons, he was brought into the ER. The reason for the consult from Dr. Orozco was due to tachycardia noted on telemetry. Review of telemetry strips reveals moments of atrial flutter with RVR. At this moment, the patient is in sinus tachycardia rhythm. is at the bedside and provides most of the history in this consultation. reports past medical history of arrhythmias. CARDIOVASCULAR MEDICATIONS: Metoprolol titrate 2.5 mg q.4 hours p.r.n. for elevated heart rate. LABORATORY DATA: WBC 10.17, hemoglobin 7.4, hematocrit 22.1, platelets 67. Sodium 143, potassium 2.7, BUN 22, creatinine 0.56, calcium 8.6. Troponin 0.916 on the 17th, max troponin 1.557. IMAGING DATA: X-ray of the sacrum with decubitus ulceration, limited evaluation for osteomyelitis. Consider MRI. Chest x-ray on admission with interstitial opacity extending to the nikki suggesting interstitial edema and fluid overload. Patchy airspace opacity in the retrocardiac region. PHYSICAL EXAMINATION: VITAL SIGNS: Temperature 97.3, pulse 101, respiratory rate 17, blood pressure 90/53. GENERAL: Alert and oriented x2, slow to speak. Resting comfortably in bed. NECK: Supple. No JVD noted. CARDIOVASCULAR: Irregular rate and rhythm. Systolic murmur present. LUNGS: Diminished breath sounds in anterior lower lobes, otherwise clear to auscultation. No wheezing. No rhonchi or crackles. ABDOMEN: Soft, nontender. EXTREMITIES: Lower extremities, diminished pedal pulses. No edema. ASSESSMENT: 1. Sepsis. 2. Hypotension. 3. Hypertension. 4. Atrial flutter, paroxysmal. 5. Troponin leak. 6. Cerebrovascular accident with history of four pancytopenia. RECOMMENDATIONS: Maintain on telemetry at all times. Echocardiogram ordered. Awaiting completion. Recommendation will follow. Continue antimicrobial therapy per Infectious Disease. Monitor mental status closely. Monitor hemoglobin closely. Anticoagulation contraindicated at this time. Unable to initiate beta-miguel or rhythm control medications at this time, given hypotension. We will continue to follow this patient closely. Recommendations will follow. Thank you very much for this consultation, Dr. Orozco. Dictated by Tsering Willis, [employer] MD JANICE Mays/RAZIA /[id number]
--- NOTE | 2018-09-16 18:55 | NUR ---
PT WENT TO PROCEDURE IN SAFE CONDITION REPORT GIVEN TO ONCOMING NURSE
--- NOTE | 2018-09-16 20:40 | Diagnostic Imaging Report ---
EXAMINATION: Left Hip Films with AP pelvis CLINICAL HISTORY:Left hip edema COMPARISON: CT abdomen and pelvis performed same day. DISCUSSION: Generalized osteopenia. No acute, displaced fractures or dislocations. Contrast is noted in the bladder from recent CAT scan. Moderate degenerative changes in bilateral hip joints and lower lumbosacral spine. No lytic or blastic lesions. IMPRESSION: 1. No acute abnormalities. Signed by: Dr. Brooks Vega M.D. on 09/16/2018 8:37 PM
--- NOTE | 2018-09-16 22:56 | NUR ---
RECEIVED PT IN BED AFTER XRAY PT IS AOX1 PT HAS TELE RUNNING AFIB .RESPIRATIONS ARE EVEN AND UN LABORED .SACRUM STAGE 4 .RT IJ TLC NS AT125 .LEFT HIP CELLULITIS FAMILY AT BEDSIDE .B/P IS LOW .MADE THE BED COFOTABLE FOR THE PT .C/O PAIN GIVEN TYLENOL IV .PT RESTING CONTINUE TO MONITOR
[2018-09-17] VITALS (7 sets, daily range): BP systolic 100–127; BP diastolic 54–68
[2018-09-17] MEDS: IPRATROPIUM BROMIDE 0.02% 2.5 ML NEB NEB SCH ×4 (00:46→19:30)
--- NOTE | 2018-09-17 02:46 | Diagnostic Imaging Report ---
EXAMINATION: CT of the abdomen and pelvis with contrast. TECHNIQUE: Spiral CT images of the abdomen and pelvis were performed from the lung bases to the lesser trochanters after the intravenous administration of 100 cc of Isovue 370 and the oral administration of water. Coronal and sagittal reformatted images were obtained. COMPARISON: None. CLINICAL HISTORY:Fever, indwelling catheter, suspect infection DISCUSSION: ABDOMEN/PELVIS: LOWER THORAX:Small right and trace left pleural effusions with bilateral lower lobe compressive atelectasis, right greater left. Atherosclerotic calcification of the coronary arteries, aortic valves and to a lesser degree thoracic aorta. HEPATOBILIARY: No focal hepatic lesions. Moderate central and mild peripheral intrahepatic biliary ductal dilation, right greater than left. The common bile duct is normal in caliber. GALLBLADDER: Layering intraluminal material in the gallbladder lumen likely represents large (for example series 2, image 34). No radiopaque stones are identified. No wall thickening. SPLEEN: Moderate splenomegaly measuring 18.0 cm in craniocaudal diameter. PANCREAS: No focal masses or ductal dilatation. ADRENALS: No adrenal nodules. KIDNEYS/URETERS: 6 mm nonobstructing calculus in the right renal pelvis. 7. (series 2, image 42). No other renal or ureteral calculi, hydronephrosis or obstruction. 2.3 cm fluid density simple cyst in the left interpolar region (series 2, image 42). Slightly exophytic 1.6 cm simple cyst in the posterior left interpolar region. No enhancing solid lesions. PELVIC ORGANS/BLADDER: Bladder is decompressed and there is a Regalado catheter in place. PERITONEUM/RETROPERITONEUM: Crescentic collection of fluid is noted in the presacral space (sagittal image 64), however, no enhancement is identified. Trace perihepatic ascites adjacent to the inferior right hepatic tip LYMPH NODES: No intra-abdominal, retroperitoneal, pelvic or inguinal lymphadenopathy. VESSELS: Separate origin of the common hepatic artery from the aorta. Accessory left hepatic artery from the left gastric. Celiac trunk, superior and inferior mesenteric and bilateral renal arteries are patent. Portal, superior mesenteric and splenic veins are patent. The portal vein is dilated, measuring 1.8 cm in diameter. GI TRACT: Mild dilation of the rectum, which measures 7.1 cm in AP diameter, shows mild wall thickening and is filled with hardened stool . Moderate retained stool within the sigmoid and descending colon. Rest of the bowel shows no dilation. Stomach is unremarkable. BONES AND SOFT TISSUE: No evidence of lytic lesions. Marked multilevel degenerative disc changes in the lumbosacral spine, with associated S-shaped scoliosis. 1.5 cm focal sclerotic lesion in the right acetabulum (series 2, image 75) has a nonaggressive appearance and likely represents a bone island. A similar appearing 1.0 cm lesion is noted in the left iliac bone (series 2, image 68). Generalized anasarca. IMPRESSION: 1. Crescentic collection of fluid in the presacral space measures simple fluid density and shows no peripheral enhancement to suspect abscess. No suspicious fluid collections are noted in the abdomen or pelvis. 2. Findings in the rectum may represent stercoral colitis. Correlate for impaction. Rest of the bowel shows no dilation or obstruction. 3. Small right and trace left pleural effusions with associated bilateral lower lobe compressive atelectasis. 4. Moderate central and mild peripheral intrahepatic ductal dilation, right greater than left. The common bile duct is normal in caliber. No definite focal lesion is noted at the bile duct bifurcation. 5. Gallbladder sludge. No radiopaque stones. No CT evidence of cholecystitis. 6. Moderate splenomegaly and dilation of the portal vein, suggesting portal hypertension. 7. 6 mm nonobstructing calculus in the right renal pelvis 8. Generalized anasarca. Signed by: Dr. Brooks Vega M.D. on 09/17/2018 2:43 AM
[2018-09-17] MEDS: ALBUTEROL SULF 0.083% NEB SOLN 3 ML NEB NEB SCH ×7 (03:00→23:15)
[2018-09-17] MEDS ORDERED: SODIUM CHLORIDE 0.9% 50ML 50 ML ONE (05:39)
[2018-09-17] MEDS ORDERED: IOPAMIDOL 370 MG/ML 200 ML INFUS..BTL INJ ONE (05:39)
[2018-09-17] MEDS: METRONIDAZOLE 500MG/NS 100ML 100 ML IV SCH ×3 (06:00→22:55)
[2018-09-17 06:03] LABS: BASOPHILS # (AUTO) 0.1 (0.0-0.1); BASOPHILS % 0.5 % (0.0-1.0); EOSINOPHILS % 0.4 % (0.0-6.0); HEMATOCRIT 25.6 % (38.2-49.6); HEMOGLOBIN 8.6 g/dL (14.0-18.0); LYMPHOCYTES # (AUTO) 1.6 (1.0-3.2); LYMPHOCYTES % 17.5 % (18.0-39.1); MEAN CORPUSCULAR HEMOGLOBIN 31.6 pg (28-32); MEAN CORPUSCULAR HGB CONC 33.6 g/dL (31-35); MEAN CORPUSCULAR VOLUME 94.1 fL (81-99); MONOCYTES # (AUTO) 0.4 (0.2-0.8); MONOCYTES % 3.7 % (4.4-11.3); NEUTROPHILS # (AUTO) 6.6 (2.1-6.9); NEUTROPHILS % 70.1 % (38.7-80.0); PLATELET COUNT 53 x10e3/uL (140-360); RED BLOOD COUNT 2.72 x10e6/uL (4.3-5.7); RED CELL DISTRIBUTION WIDTH 17.7 % (11.7-14.4)
[2018-09-17 06:23] LABS: ANION GAP 9.9 mmol/L (8-16); BLOOD UREA NITROGEN 25 mg/dL (7-26); BUN/CREATININE RATIO 44 (6-25); CALCIUM 8.4 mg/dL (8.4-10.2); CARBON DIOXIDE 16 mmol/L (22-29); CHLORIDE 120 mmol/L (98-107); CREATININE, SERUM 0.57 mg/dL (0.72-1.25); EST GLOMERULAR FILTRATION RATE > 60 ML/MIN (60-); GLUCOSE 103 mg/dL (74-118); SODIUM 143 mmol/L (136-145)
--- NOTE | 2018-09-17 06:25 | NUR ---
PT HAD BM AND CLEANED THE PT .PT RESTING .DENIES PAIN .TELE SHOWS AFIB .CALL LIGHT WITH IN REACH .CONTINUE TO MONITOR
[2018-09-17 06:28] LABS: POTASSIUM 2.9 mmol/L (3.5-5.1)
--- NOTE | 2018-09-17 07:19 | NUR ---
BEDSIDE REPORT GIVEN TO THE ON COMING NURSE .
--- NOTE | 2018-09-17 07:19 | NUR ---
K IS 2.[address] BRAR
[2018-09-17] MEDS ORDERED: POTASSIUM CHLORIDE 20MEQ/100ML 200 ML IV ONE (07:30)
[2018-09-17] MEDS: KCL 20MEQ/.9 SOD CHL 1,000 ML IV SCH ×2 (08:11→22:53)
--- NOTE | 2018-09-17 08:16 | Progress Note ---
DATE: SUBJECTIVE: The patient is an 83-year-old male with cellulitis of the sacrum and also with recent history of elevated troponin levels, and the patient has a history of CVA with hemiplegia. The patient did notice to have some tachycardia during telemetry followup. The patient also reveals some atrial fibrillation with rapid ventricular response. A consult with Cardiology was done yesterday. Consult ID is on-board for the cellulitis and also for sepsis secondary to cellulitis of the sacrum and/or aspiration pneumonia. The patient is currently not verbal . OBJECTIVE: VITAL SIGNS: Temperature is 98.9, pulse 104, respirations of 20, blood pressure is 100/62, pulse oximetry of 98%. HEENT: Normocephalic. GENERAL: The patient is very emaciated. CVS: S1, S2, tachy. ABDOMEN: Nontender, nondistended. Positive for sacral ulcers with cellulitis. LUNGS: Positive for rhonchi on the right side. EXTREMITIES: Positive for atrophy and the patient is contracted on the left side. LABORATORY VALUES: White count is down from 9.37, hemoglobin of 8.6, hematocrit 25.6, and platelet count is 53. Sodium is 143, potassium is up to 2.9, chloride of 120, BUN of 25, creatinine 0.57 with estimated EGFR of above 60. Coags are normal. Microbiology, the patient's Gram stain initially from the wound grew Acinetobacter baumannii and gram negative bacillus to the patient is sensitive to ceftazidime and tobramycin, resistant to vancomycin. The patient's blood culture grew the same thing Acinetobacter baumannii from the wound. The patient's abdominal CT done yesterday and hip CT done shows concentric collection of fluid in the amberly-sacral space measuring simple fluid density and show no peripheral enhancement of suspected represents stercoral colitis. Small right and left pleural effusions, moderate, central, and mild peripheral intrahepatic ductal dilatation. Gallbladder sludge, moderate splenomegaly, 6 mm nonobstructing calculi and generalized anasarca. ASSESSMENT: 1. Sepsis secondary to sacral ulcer. 2. Aspiration pneumonia. 3. Cachexia and malnutrition. 4. History of splenic cancer, stage IV. 5. Elevated troponins. PLAN: 1. To continue the patient on antibiotics. We need to switch antibiotics. Will defer this to ID. 2. Arrhythmia. Continue with monitoring with Dr. Pope and continue with metoprolol. 3. The patient is currently on sodium chloride 125 mL an hour. We will cut this down to 70 mL an hour with 20 of potassium in it. The patient is currently also on ipratropium bromide and we will continue with that. The patient is currently also titrated on norepinephrine. We will continue to down titrate and stop . MD IKE Singer/MODL /[id number]
[2018-09-17] MEDS: CEFTAZIDIME SOD 1 GM/NS 50ML 50 ML IV SCH ×2 (10:00→16:00)
--- NOTE | 2018-09-17 10:43 | NUR ---
aware of doppler and Echo results. See orders
[2018-09-17] MEDS ORDERED: ENOXAPARIN SODIUM INJ 100 MG/ML SYR SC SCH (10:45)
--- NOTE | 2018-09-17 13:44 | NUR ---
Patient's states "My cannot be on lovenox 90mg , that's too high for him. That's what caused him to have a stroke in the past. He should be on 70mg twice a day. I am also concerned about his swollen testicles." made aware of situation. See orders.
[2018-09-17 13:52] LABS: LYMPHOCYTES % (MANUAL) 18 % (19-48); METAMYELOCYTES % (MANUAL) 1 % (0-0); MONOCYTES % (MANUAL) 4 % (3.4-9.0); MYELOCYTES % (MANUAL) 3 % (0-0); NEUTROPHILS % (MANUAL) 72 % (40-74); PLATELET ESTIMATE ADEQUATE; RBC MORPHOLOGY COMMENT ABNORMAL
[2018-09-17 13:53] LABS: ANISOCYTOSIS MODERATE; HYPOCHROMASIA MODERATE; PLATELET MORPHOLOGY COMMENT NORMAL
[2018-09-17] MEDS ORDERED: CEFTAZIDIME 1 GM VIAL IV SCH (14:00)
--- NOTE | 2018-09-17 14:26 | NUR ---
Patient's states " My should be on lovenox 40mg twice a day, not 70mg that is what his placement specialist and neurologist had told me. Call again to let him know." aware of situation. See orders
[2018-09-17] MEDS ORDERED: ACETAMINOPHEN 1000 MG/100 ML IV PRN (14:45)
[2018-09-17] MEDS: SILVER SULFADIAZINE 50GM CREAM TOP SCH (16:00)
--- NOTE | 2018-09-17 19:00 | NUR ---
Report given to oncoming nurse of patient's status. No s/s of acute distress noted.
--- NOTE | 2018-09-17 20:27 | NUR ---
PT RESTING RESPIRATIONS ARE EVEN AND UNLABORED .FAMILY AT THE BEDSIDE SUCTIONED THE PT RT HIP AND SCROTUM SWOLLEN .DR AWARE OF IT .CALL LIGHT WITH IN REACH .CONTINUE TO MONITOR
[2018-09-17] MEDS ORDERED: ENOXAPARIN INJ 80 MG/0.8 ML SYR SC SCH (21:00)
[2018-09-17] MEDS ORDERED: ALBUTEROL SULF 0.083% NEB SOLN 3 ML NEB NEB PRN (21:00)
[2018-09-17] MEDS ORDERED: GUAIFENESIN 600MG/DEXTROMETHORPHAN 30MG TABSR PO PRN (21:00)
[2018-09-17] MEDS: METOPROLOL SUCCINATE 25 MG TAB XL PO SCH (21:00)
[2018-09-17] MEDS: ENOXAPARIN SOD INJ 40 MG/0.4 ML SYR SC SCH (21:00)
[2018-09-17] MEDS ORDERED: ACETAMINOPHEN/CODEINE 300MG - 30MG TAB PO PRN (21:00)
--- NOTE | 2018-09-17 21:34 | Progress Note ---
DATE: 06/20/2018 Cardiology Progress Note SUBJECTIVE: No major events overnight. OBJECTIVE: VITAL SIGNS: Temperature afebrile, pulse 96, respiratory rate 24, blood pressure 126/60, and saturating 96%. GENERAL: Elderly man, in no acute distress. CARDIOVASCULAR: Irregular rate and rhythm. Systolic murmur at right upper sternal border. LUNGS: Diminished breath sounds in bilateral bases. ABDOMEN: Soft, nontender. INPATIENT MEDICATIONS: Reviewed. LABORATORY DATA: Reviewed. TELEMETRY DATA: Reviewed. ASSESSMENT/PLAN: 1. Sepsis. 2. Hypotension. 3. Chronic hypertension. 4. Atrial flutter, paroxysmal. 5. Elevated troponin. 6. History of cerebrovascular accident. 7. Pancytopenia. RECOMMENDATIONS: Continue telemetry monitoring, pending echocardiogram results. Antibiotics per primary team. No anticoagulation given. Anemia and thrombocytopenia. Correct potassium as tolerated. Thank you for this consult. We will continue to follow. MD LORETTA Steele/JOBYL /[id number]
[2018-09-17] MEDS: ATORVASTATIN 20 MG TAB PO SCH (22:53)
[2018-09-18] VITALS (9 sets, daily range): BP systolic 107–126; BP diastolic 54–67
[2018-09-18] MEDS: ALBUTEROL SULF 0.083% NEB SOLN 3 ML NEB NEB SCH ×6 (00:10→19:45)
[2018-09-18] MEDS: IPRATROPIUM BROMIDE 0.02% 2.5 ML NEB NEB SCH ×4 (02:30→19:45)
[2018-09-18 05:37] LABS: BASOPHILS # (AUTO) 0.1 (0.0-0.1); BASOPHILS % 0.8 % (0.0-1.0); EOSINOPHILS # (AUTO) 0.1 (0.0-0.4); EOSINOPHILS % 1.2 % (0.0-6.0); HEMATOCRIT 27.5 % (38.2-49.6); HEMOGLOBIN 9.2 g/dL (14.0-18.0); LYMPHOCYTES # (AUTO) 1.8 (1.0-3.2); LYMPHOCYTES % 23.4 % (18.0-39.1); MEAN CORPUSCULAR HEMOGLOBIN 31.4 pg (28-32); MEAN CORPUSCULAR HGB CONC 33.5 g/dL (31-35); MEAN CORPUSCULAR VOLUME 93.9 fL (81-99); MONOCYTES # (AUTO) 0.3 (0.2-0.8); MONOCYTES % 3.5 % (4.4-11.3); NEUTROPHILS # (AUTO) 4.3 (2.1-6.9); NEUTROPHILS % 55.9 % (38.7-80.0); PLATELET COUNT 53 x10e3/uL (140-360); RED BLOOD COUNT 2.93 x10e6/uL (4.3-5.7); RED CELL DISTRIBUTION WIDTH 17.7 % (11.7-14.4)
[2018-09-18 05:54] LABS: ANION GAP 10.4 mmol/L (8-16); BLOOD UREA NITROGEN 19 mg/dL (7-26); BUN/CREATININE RATIO 32 (6-25); CALCIUM 8.5 mg/dL (8.4-10.2); CARBON DIOXIDE 16 mmol/L (22-29); CHLORIDE 118 mmol/L (98-107); CREATININE, SERUM 0.59 mg/dL (0.72-1.25); EST GLOMERULAR FILTRATION RATE > 60 ML/MIN (60-); GLUCOSE 100 mg/dL (74-118); POTASSIUM 3.4 mmol/L (3.5-5.1); SODIUM 141 mmol/L (136-145)
[2018-09-18] MEDS: METRONIDAZOLE 500MG/NS 100ML 100 ML IV SCH ×3 (06:00→22:07)
--- NOTE | 2018-09-18 06:46 | NUR ---
PT RESTING .PT HAD BATH .NO ACUTE DISTRESS NOTED .CALL LIGHT WITH IN REACH .CONTINUE TO MONITOR
--- NOTE | 2018-09-18 07:01 | Progress Note ---
DATE: SUBJECTIVE: The patient comes in with cellulitis, sacral decubitus, and sepsis secondary to sacral decubitus ulcer and cellulitis. The patient also was found to have urinary tract infection and aspiration pneumonia. Currently, the patient is asymptomatic, is eating pleasure foods. MBS has not been done yet and will be done today. The patient has an indwelling catheter and is present on admission too. OBJECTIVE: GENERAL: The patient is alert and oriented x3. VITAL SIGNS: Temperature 98.2, pulse of 104, respirations of 18, blood pressure is 117/65, pulse oximetry of 95%. HEENT: Normocephalic, atraumatic. The patient is edentulous. CVS: S1, S2. Regular. ABDOMEN: Nontender, nondistended, scaphoid. EXTREMITIES: Left thigh with erythema, tenderness, and increased girth compared to the right. Positive for atrophy in the lower extremities. The patient also has contractures in the left upper extremities. LABORATORY VALUES: Pending today. Yesterday's RBC was 2.72, hemoglobin of 8.6, hematocrit of 25.6, status post transfusion 2 units. The patient's neutrophil count is down to 70 today and left shift is better. Chemistries are pending. Potassium is 2.9 and yesterday's was 3.4. The patient's chloride 118, sodium is 141. Estimated GFR of 60. The patient's microbiology shows Acinetobacter baumannii and also blood cultures shows the same thing, Acinetobacter baumannii. ASSESSMENT: 1. Sepsis secondary to Acinetobacter. The patient is on ceftazidime and also Flagyl for aspiration. 2. For cellulitis and sacral decubitus ulcer. We will continue monitoring the patient with wound care. Wound care is on course. The patient does have scrotal edema and has been discussed with the about the dependent edema. The patient will need continuous movement. 3. Elevated troponin's. Dr. Arceo is on consult. The patient is also has acute DVT of the left lower extremities. Continue with Lovenox at this time. We will continue to monitor the patient. Further recommendation per clinical course. Discussed with by the bedside yesterday about his prognosis and diagnosis. The patient and is aware of the terminal illness. Additional information and diagnosis include stage IV splenic cancer. Respiratory Therapy to continue with respiratory toilet and also continue with Regalado catheterization. Further recommendation per clinical course. I will continue to monitor the patient and keep the updated on day-to-day basis. MD TEN SingerJ/MODL /[id number]
[2018-09-18] MEDS: SILVER SULFADIAZINE 50GM CREAM TOP SCH (09:30)
[2018-09-18] MEDS: CEFTAZIDIME SOD 1 GM/NS 50ML 50 ML IV SCH ×3 (09:30→15:00)
[2018-09-18] MEDS: MEGACE 400MG/ 10ML CUP PO SCH (09:30)
[2018-09-18] MEDS: METOPROLOL SUCCINATE 25 MG TAB XL PO SCH (09:30)
[2018-09-18] MEDS: TAMSULOSIN HCL 0.4 MG CAP PO SCH ×2 (09:30→15:00)
[2018-09-18] MEDS: ENOXAPARIN SOD INJ 40 MG/0.4 ML SYR SC SCH ×2 (09:30→22:07)
[2018-09-18] MEDS: KCL 20MEQ/.9 SOD CHL 1,000 ML IV SCH (12:16)
--- NOTE | 2018-09-18 14:07 | NUR ---
ST recommends NPO status. Notified niece of ST recommendations. Niece states " I don't think his will want that status. He has been having this issue ever since his stroke, and has been doing fine with current texture. " notified of situation. See orders.
--- NOTE | 2018-09-18 16:31 | NUR ---
Educated patient's on orders for thickened liquids. Patient's state "Honey I been doing this for a while now, I know what they are trying to do. They are trying to put a feeding tube on him and that's not going to happen. He has been doing just fine, just by giving him thin liquids with a spoon. I am not going to starve him to ." Reinforced patient is not being starved. He will still be getting food, but liquids to be thickened. states "I know you are doing your job by telling me, is aware. I will continue doing what I am doing."
--- NOTE | 2018-09-18 18:01 | Diagnostic Imaging Report ---
Exam: Modified barium swallow History: History of a stroke with difficulty swallowing. Comparison: None available Findings: There is laryngeal penetration with thin and thick liquids and thin-thick puree. Aspiration of thin liquids and microaspiration of recent residual of thin and thick puree. Fluoroscopy time: 1.9 minutes Cumulative dose: 4.18 mGy Impression: Laryngeal penetration and aspiration. Please see the full report provided by the speech pathologist. Signed by: Dr. Mannie Avery DO on 09/18/2018 5:58 PM
--- NOTE | 2018-09-18 18:02 | NUR ---
Nutrition Intervention Note RD Recommendation(s) for Physician: - Recommend diet texture per TREE CHIPPER with Ensure Pudding TID with meals - If EN is required, recommend feeding tube placement and TF of Osmolite 1.2 at 10 ml/hr, advance as tolerated to goal of 65 ml/hr (to provide 1872 kcal and 87 gm protein per day). Give 1 packet Beneprotein BID to provide an additional 12 gm protein to meet needs. Water flushes per MD. - Rec MVi/minerals, zinc sulfate 220mg (x1/day), vitamin C 500mg BID for 10 days to support wound healing - Rec Greg BID to support wound healing - Assist with feeding as needed Plan of Care: RD following, monitoring for tolerance and adequacy Nutrition reason for involvement: Follow up RD Assessment 09/18: Follow up. Pt discussed during am rounds, MBS today. TREE CHIPPER recommends NPO per MBS results, however diet advanced to pureed with nectar thick liquids. Per RN and chart does not want pt to have EN or thickened liquids and will give thin liquids. Diet modified to Regular for dinner. Pt remains mentally altered. Will monitor and continue to follow. POC and rec's discussed with RN. 08/29 83yo M, who was admitted from home to ER for Fever, hypotension and AMS. Pt was discussed during AM rounds. Per RN, pt was recently discharged from [facility] for similar issues. MBS and swallow evaluation were ordered. Visited pt in the room. Caregiver on bedside provided info. Per caregiver, pt was eating 50-75% of his meals recently. He has been doing well with his PO intake. was feeding pt pureed foods and thin liquids (ice-chips/water) at home. Pt was also getting Mighty Shakes and Greg at home. Caregiver thinks his BW has been stable in the last few months with adequate PO intake. Some signs of moderate muscle/fat loss upon NFPA. Wound care following for Stage IV pressure ulcer. Will continue to monitor and follow. Principal Problems/Diagnoses: PNA, Left Hip Cellulitis, Infected Stage IV Pressure Ulcer. PMH: Spleen Ca, Right foot SX, CVA. Dysphagia. GI: LBM 09/18 Skin: 1. Sacral Wound- Non Healing Stage IV- Pressure Ulcer- Present On Admission. 2. Left Forearm- Skin Tears Labs: 09/18: Na 141, K 3.4, BUN 19, Cr 0.59, Gluc 100 (09/14) Alk phosphate 800 H Meds: abx, KCl IVPB, megace, lipitor Ht: 69in Wt: 145lb BMI: 21.44kg/m2 IBW: 160lb Malnutrition Evaluation (09/14/2018) The patient does not meet criteria for a specified degree of malnutrition at this time. Will re-evaluate at follow-up as appropriate. Fat loss: Moderate clavicle protrusion Muscle loss: Moderate protrusion of acromion process, temporal depression Supporting Evidence: Fluid accumulation: unable to evaluate Functional Status: unable to evaluate Nutrition Prescription (Diet Order): NPO Estimated Nutritional Needs: Calories: 1650 2310kcal(25-35kcal/kg/d) Weight used: CBW Protein: 99 132g(1.5-2g/kg/d) Weight used: CBW Diet Adequacy: Not meeting calorie needs, Not meeting protein needs NPO Diet Education Needs Assessment: Diet education indicated, but patient not appropriate for education at this time. Nutrition Care Level: mod Nutrition Diagnosis: Predicted suboptimal nutrient intake related to NPO as evidenced by pt requiring MVi w/ minerals for wound healing. Goal: Patient will meet 75-100% of estimated needs by follow up Progress: Not progressing Interventions: Texture-modified diet, Commercial beverage, Commercial food, Multivitamin/mineral supplement therapy, Collaboration with other providers Monitoring/Evaluation: Total energy intake, Total protein intake, Prescription medication, Modified diet, Liquid supplement, Weight change Signed: Ginny Blackwell RD, LD, [facility]
--- NOTE | 2018-09-18 18:05 | Progress Note ---
DATE: 09/18/2018 Cardiology Progress Note SUBJECTIVE: No major events overnight. OBJECTIVE: VITAL SIGNS: Temperature afebrile, pulse 99, respiratory rate 19, blood pressure 107/59, and saturating 98%. GENERAL: Elderly man, in no acute distress. CARDIOVASCULAR: Irregular rate and rhythm. Systolic murmur at right upper sternal border. LUNGS: Diminished breath sounds in bilateral bases. ABDOMEN: Soft, nontender. INPATIENT MEDICATIONS: Reviewed. LABORATORY DATA: Reviewed. TELEMETRY DATA: Reviewed. ASSESSMENT AND PLAN: 1. Sepsis. 2. Hypotension. 3. Chronic hypertension. 4. Atrial flutter, paroxysmal. 5. Elevated troponin. 6. History of cerebrovascular accident. 7. Pancytopenia. RECOMMENDATIONS: Antibiotics per primary team. We will increase dose of metoprolol to 50 mg. Continue cardiovascular medications otherwise. Thank you for this consult. We will continue to follow. MD LORETTA Steele/MODL /[id number]
--- NOTE | 2018-09-18 19:05 | NUR ---
Report given to oncoming nurse of patient's status. Resting in bed. No s/s of acute distress noted. Side rails upx3, call light within reach, at bedside.
[2018-09-18] MEDS ORDERED: METOPROLOL SUCCINATE 25 MG TAB XL PO SCH (21:00)
[2018-09-18] MEDS: ATORVASTATIN 20 MG TAB PO SCH (22:07)
[2018-09-18] MEDS: METOPROLOL SUCCINATE 50 MG TAB XL PO SCH (22:07)
[2018-09-19] VITALS (8 sets, daily range): BP systolic 124–174; BP diastolic 67–74
[2018-09-19] MEDS: IPRATROPIUM BROMIDE 0.02% 2.5 ML NEB NEB SCH ×4 (00:10→19:45)
[2018-09-19] MEDS: KCL 20MEQ/.9 SOD CHL 1,000 ML IV SCH ×2 (00:47→16:51)
[2018-09-19] MEDS: CEFTAZIDIME SOD 1 GM/NS 50ML 50 ML IV SCH ×3 (00:47→16:50)
[2018-09-19] MEDS: ALBUTEROL SULF 0.083% NEB SOLN 3 ML NEB NEB SCH ×6 (03:00→23:30)
[2018-09-19 05:14] LABS: BASOPHILS % 0.6 % (0.0-1.0); EOSINOPHILS # (AUTO) 0.1 (0.0-0.4); EOSINOPHILS % 1.8 % (0.0-6.0); HEMATOCRIT 26.3 % (38.2-49.6); HEMOGLOBIN 8.8 g/dL (14.0-18.0); LYMPHOCYTES # (AUTO) 2.4 (1.0-3.2); LYMPHOCYTES % 35.4 % (18.0-39.1); MEAN CORPUSCULAR HEMOGLOBIN 31.8 pg (28-32); MEAN CORPUSCULAR HGB CONC 33.5 g/dL (31-35); MEAN CORPUSCULAR VOLUME 94.9 fL (81-99); MONOCYTES # (AUTO) 0.3 (0.2-0.8); MONOCYTES % 3.8 % (4.4-11.3); NEUTROPHILS # (AUTO) 2.7 (2.1-6.9); NEUTROPHILS % 39.1 % (38.7-80.0); PLATELET COUNT 59 x10e3/uL (140-360); RED BLOOD COUNT 2.77 x10e6/uL (4.3-5.7); RED CELL DISTRIBUTION WIDTH 17.3 % (11.7-14.4)
[2018-09-19] MEDS: METRONIDAZOLE 500MG/NS 100ML 100 ML IV SCH ×3 (05:28→21:57)
[2018-09-19 06:17] LABS: ANION GAP 10.2 mmol/L (8-16); BLOOD UREA NITROGEN 19 mg/dL (7-26); BUN/CREATININE RATIO 35 (6-25); CALCIUM 8.4 mg/dL (8.4-10.2); CARBON DIOXIDE 18 mmol/L (22-29); CHLORIDE 118 mmol/L (98-107); CREATININE, SERUM 0.55 mg/dL (0.72-1.25); EST GLOMERULAR FILTRATION RATE > 60 ML/MIN (60-); GLUCOSE 102 mg/dL (74-118); POTASSIUM 3.2 mmol/L (3.5-5.1); SODIUM 143 mmol/L (136-145)
--- NOTE | 2018-09-19 07:00 | NUR ---
BEDSIDE SHIFT REPORT RECEIVED FROM BACK HAND RN. AAOX 2. PT DENIES NEEDS AT THIS TIME
--- NOTE | 2018-09-19 08:02 | Progress Note ---
DATE: SUBJECTIVE: The patient is an 83-year-old gentleman with a history of aspiration pneumonia, sepsis secondary to a sacral wound, urinary tract infection and indwelling catheter. The patient is currently alert and oriented x3, verbal, has history of CVA with neurological changes. The patient is also contracted. Currently, no pain, no chest pain, no shortness of breath. is usually at bedside, currently not there. OBJECTIVE: VITAL SIGNS: Temperature is 98.9, pulse 97, respirations of 20, blood pressure is 126/68, pulse oximetry of 98%. HEENT: Normocephalic, atraumatic. Edentulous. The patient does have contractures. CVS: S1, S2. Regular. ABDOMEN: Nontender, nondistended. EXTREMITIES: No clubbing, no cyanosis. Positive for left lower extremity swelling. Positive for atrophy in the lower extremities. LABORATORY VALUES: Today's hemoglobin is 8.8 and hematocrit 26.6. Chemistries, sodium of 143, potassium of 3.2, BUN of 19, creatinine 0.55. Coags are normal. Toxicology, vancomycin trough on 09/15 is 16.4. Microbiology, Acinetobacter baumannii grown in the wound culture and the blood culture. ASSESSMENT: 1. Sepsis secondary to Acinetobacter. 2. Cellulitis and sacral decubitus ulcers, present at admission. 3. Elevated troponins. 4. Hypertension. 5. Hypokalemia. PLAN: To continue giving support to the patient. The patient's telemetry is being continuously monitored. Anticoagulation has not been given, except DVT prophylaxis. The patient's does not want for him to get full coagulation. The patient also has anemia and thrombocytopenia. Potassium levels to be corrected and also while the patient is getting pleasure foods, although the recommendation by Speech is not to feed the patient. Further recommendation per clinical course. We will continue to monitor the patient and also Wound Care consult on board. MD IKE Singer/RAZIA /[id number]
[2018-09-19] MEDS: ENOXAPARIN SOD INJ 40 MG/0.4 ML SYR SC SCH ×2 (09:07→21:57)
[2018-09-19] MEDS: TAMSULOSIN HCL 0.4 MG CAP PO SCH ×2 (09:20→16:52)
[2018-09-19] MEDS: METOPROLOL SUCCINATE 50 MG TAB XL PO SCH ×2 (09:21→21:57)
[2018-09-19] MEDS: MEGACE 400MG/ 10ML CUP PO SCH (09:23)
[2018-09-19] MEDS: SILVER SULFADIAZINE 50GM CREAM TOP SCH (10:00)
[2018-09-19 10:17] LABS: EOSINOPHILS % (MANUAL) 2 % (0-7); LYMPHOCYTES % (MANUAL) 44 % (19-48); METAMYELOCYTES % (MANUAL) 7 % (0-0); MONOCYTES % (MANUAL) 7 % (3.4-9.0); MYELOCYTES % (MANUAL) 3 % (0-0); NEUTROPHILS % (MANUAL) 35 % (40-74); PROMYELOCYTES % (MANUAL) 1 % (0-0)
[2018-09-19 10:25] LABS: ANISOCYTOSIS MODERATE; HYPOCHROMASIA MODERATE; PLATELET ESTIMATE MODERATELY DECREASED; PLATELET MORPHOLOGY COMMENT FEW LARGE; POLYCHROMASIA FEW; RBC MORPHOLOGY COMMENT ABNORMAL
--- NOTE | 2018-09-19 10:52 | NUR ---
WOUND CARE CONSULTATION: FOLLOW -UP Patient admitted from home to ER for Fever, hypotension and AMS. DX: PNA, Left Hip Cellulitis, Infected Stage IV Pressure Ulcer. HX: Spleen Ca, Right foot SX, CVA. Dysphagia. Dr. Hammer on case for infectious diseases managing IV abx. Patient is NPO. Wound Care consulted for evaluation and recommendation of Sacral Ulcer. PATIENT VISIT: Patient Awake, Unable to follow direction. Stiff to turn. Family friend at bedside. Private sitter at bedside. - Sacral Ulcer- full thickness ulceration with beefy red wound base 10% slough, 90% granulation. Undermining present with deepest measuring 4.5 cm from 8 - 4 0'clock. Wound Edges rolled and irregular. Periwound with denuded edges, improving. The wound does not look VAC appropriate at this time due to wound's poor condition and recent history of many recent failed application attempts. Recommend current treatment plan for long line teamster therapy. Wound Culture was + for Acinetobacter and Pseudomonas. High Risk for Skin tears, Continue use of silicone based adhesives. Bilateral Heel Protectors in place, removed and re-applied. No Pressure Ulcers Identified. Aly Score [address] IMPRESSION: 1. Sacral Wound- Non Healing Stage IV- Pressure Ulcer- Present On Admission.(Slow Healing) RECOMMENDATION: ( Patient can discharge to next level of care with the same instructions for prison therapy for sacral wound) 1. Sacral Wound- Stage IV- Pressure Ulcer Present On Admission - Cleanse wound with NS and 4x4 gauze. - Saturate 4x4 gauze with Silvadene and pack lightly over wound bed and cover with Allevyn Foam Sacrum Dressing Daily. 2. Left Forearm- Skin Tear: - Xeroform Single Layer and Cover with Kerlix Wrap Daily. 3. Rotational Air Mattress. 4. Turn and reposition patient every 2 hours 5. Continue Bilateral Heel Protectors, 6. Strict PUP PROTOCOL 7. Skin Tear Precautions Thank you for consulting with Wound Care. Addendum: 09/19/18 at 1103 by Ruben Pulido RN Amended: Links added.
--- NOTE | 2018-09-19 12:19 | NUR ---
WENT TO ROOM AND SPOKE WITH PROVIDER THAT WAS IN ROOM, SHE STATES THE WILL BE HERE AT 3 PM, ADVISED ABOUT SNF, PROVIDER WILL GO LOOK AT 3 DIFFERENT BUILDINGS AND GIVE PREFERENCE TO THE . WILL OBTAIN CHOICE FROM AFTER THEY TALK ABOUT THE FACILITIES.
--- NOTE | 2018-09-19 12:48 | NUR ---
SPOKE WITH JULIO SHE STATES WILL GET WITH [facility] AND THEY WILL LOOK AT BUILDINGS AND GET BACK TO ME TOMORROW FOR CHOICE.
--- NOTE | 2018-09-19 19:00 | NUR ---
BEDSIDE SHIFT REPORT GIVEN TO PUNCH OUT CREW MEMBER RN. PT DENIES NEEDS AT THIS TIME.
--- NOTE | 2018-09-19 20:00 | Progress Note ---
DATE: 09/19/2018 Cardiology Progress Note SUBJECTIVE: No major events overnight. OBJECTIVE: VITAL SIGNS: Temperature afebrile, pulse 89, respiratory rate 22, blood pressure 124/67, and saturating 96%. GENERAL: Elderly man in no acute distress. CARDIOVASCULAR: Regular rate and rhythm. Murmur at upper sternal border. LUNGS: Diminished breath sounds in bilateral bases. ABDOMEN: Soft and nontender. INPATIENT MEDICATIONS: Reviewed. LABORATORY DATA: Reviewed. TELEMETRY DATA: Reviewed. ASSESSMENT: 1. Sepsis. 2. Hypotension. 3. Chronic hypertension. 4. Atrial flutter, paroxysmal. 5. Elevated troponin. 6. History of cerebrovascular accident. 7. Pancytopenia. RECOMMENDATIONS: Continue current medical therapy. Rate control. Hemodynamically stable. Not a good candidate for full anticoagulation, this is also patient's 's wishes. Continue DVT prophylaxis only. Thank you for this consult. We will continue to follow. MD LORETTA Steele/RAZIA /[id number]
--- NOTE | 2018-09-19 20:15 | NUR ---
PATIENT INCONTINENT OF STOOL, HE'S KEPT CLEAN AND DRY. HEAD OF BED ELEVATED, REPOSITION IN BED FOR COMFORT. PATIENT DENIES PAIN, AUDIBLE WHEEZING HEARD AND HE'S RECEIVING BREATHING TREATMENT AT THIS TIME.
[2018-09-19] MEDS: ATORVASTATIN 20 MG TAB PO SCH (21:57)
[2018-09-20] VITALS (9 sets, daily range): BP systolic 101–146; BP diastolic 55–78
--- NOTE | 2018-09-20 00:20 | NUR ---
PATIENT IS ASLEEP, HE'S EASY TO AROUSE. NO PAIN VOICED, HE'S AFEBRILE WITH DRESSINGS DRY AND INTACT TO THE ARMS AND THE SACRUM.
[2018-09-20] MEDS: CEFTAZIDIME SOD 1 GM/NS 50ML 50 ML IV SCH ×3 (00:46→16:30)
[2018-09-20] MEDS: KCL 20MEQ/.9 SOD CHL 1,000 ML IV SCH ×2 (00:48→09:46)
[2018-09-20] MEDS: ALBUTEROL SULF 0.083% NEB SOLN 3 ML NEB NEB SCH ×6 (02:45→23:12)
[2018-09-20] MEDS: IPRATROPIUM BROMIDE 0.02% 2.5 ML NEB NEB SCH ×3 (02:45→10:00)
--- NOTE | 2018-09-20 04:10 | NUR ---
WALKING ROUNDS MADE, PATIENT OBSERVED SOUNDLY ASLEEP WITHOUT RESPIRATORY DISTRESS. CALL LIGHT WITHIN EASY REACH, WILL CONTINUE TO MONITOR.
[2018-09-20 05:53] LABS: ANION GAP 10.2 mmol/L (8-16); BLOOD UREA NITROGEN 13 mg/dL (7-26); BUN/CREATININE RATIO 25 (6-25); CALCIUM 8.2 mg/dL (8.4-10.2); CARBON DIOXIDE 19 mmol/L (22-29); CHLORIDE 114 mmol/L (98-107); CREATININE, SERUM 0.52 mg/dL (0.72-1.25); EST GLOMERULAR FILTRATION RATE > 60 ML/MIN (60-); GLUCOSE 91 mg/dL (74-118); POTASSIUM 3.2 mmol/L (3.5-5.1); SODIUM 140 mmol/L (136-145)
[2018-09-20] MEDS: METRONIDAZOLE 500MG/NS 100ML 100 ML IV SCH ×3 (06:22→21:55)
--- NOTE | 2018-09-20 07:00 | NUR ---
BEDSIDE SHIFT REPORT RECEIVED FROM ULTRA SOUND TECHNICIAN RN. AAOX 2. PT DENIES NEEDS AT THIS TIME
--- NOTE | 2018-09-20 07:08 | Progress Note ---
DATE: SUBJECTIVE: The patient is here for sepsis secondary to sacral ulcer. The patient is cachectic, alert and oriented x3. He is very verbal. Did not complain of any pain. No chest pains. No shortness of breath, and the patient is otherwise having pleasure feeds secondary to failed MBS. OBJECTIVE: VITAL SIGNS: Temperature is 96.9, pulse of 78, respirations of 20, blood pressure is 119/56, and pulse oximetry of 98%. HEENT: Normocephalic and atraumatic. Pupils are reactive to light and accommodation. CVS: S1 and S2. Regular. ABDOMEN: Nontender and nondistended. EXTREMITIES: Left lower extremity with edema. LABORATORY VALUES: Hemoglobin is 8.8 and hematocrit of 26.3. Chemistry; sodium of 140, potassium 3.2, chloride 114, coags are normal. The patient's vancomycin trough was 16.4 on 09/15, has been discontinued since. The patient is currently on ceftazidime and Flagyl. ASSESSMENT: 1. Sepsis secondary to Acinetobacter. 2. Cellulitis and sacral decubitus ulcers, present on admission. 3. Hypertension. 4. Hyperkalemia. 5. History of cerebrovascular accident with dysphagia and failed MBS. PLAN: Continue giving support to the patient. The patient has also additional diagnosis of DVT. The patient is on 40 mg b.i.d. of enoxaparin. Continue with anticoagulation. Potassium to be corrected. Further recommendation per clinical course. We will continue to monitor the patient and possible discharge to a step-down unit, pending insurance clearance. MD IKE Singer/JOYBL /[id number]
[2018-09-20] MEDS: SILVER SULFADIAZINE 50GM CREAM TOP SCH (09:00)
[2018-09-20] MEDS: MEGACE 400MG/ 10ML CUP PO SCH (09:47)
[2018-09-20] MEDS: TAMSULOSIN HCL 0.4 MG CAP PO SCH ×2 (09:47→17:35)
[2018-09-20] MEDS: METOPROLOL SUCCINATE 50 MG TAB XL PO SCH ×2 (09:47→21:55)
[2018-09-20] MEDS: ENOXAPARIN SOD INJ 40 MG/0.4 ML SYR SC SCH ×2 (09:47→21:55)
--- NOTE | 2018-09-20 13:01 | NUR ---
SPOKE WITH JULIO DAUGHTER OVER PHONE, SHE IS CHOOSING [facility] CALLED REP TO [facility] [employer] [facility].
--- NOTE | 2018-09-20 14:48 | NUR ---
PT ACCEPTED TO [facility] [address] [facility] Taniya STARRTammie CALL REPORT TO [phone] GOING TO ROOM [address] Taniya BRAR. PT REQUESTING ROOM 609 BUT NOT READY SO LET DAUGHTER KNOW WILL GO TO 100 UNTIL OTHER BED IS AVAILABLE. RTF COMPLETED AND GIVEN TO NURSE. REQUESTING TRANSPORT TO BE SET UP AT 9 AM TOMORROW.
--- NOTE | 2018-09-20 19:00 | NUR ---
BEDSIDE SHIFT REPORT GIVEN TO BALANCE ENGINEER RN. FAMILY AT BEDSIDE. PT DENIED FURTHER NEEDS.
[2018-09-20] MEDS ORDERED: MIRALAX17 GM PO (21:12)
--- NOTE | 2018-09-20 21:45 | NUR ---
PATIENT KEPT CLEAN AND DRY, HE'S ADJUSTED IN BED FOR COMFORT. HE'S ON A SPECIAL MATTRESS THAT AUTOMATICALLY SHIFT HIS WEIGHT. NON PRODUCTIVE COUGH NOTED, HEAD OF BED ELEVATED AND PATIENT DENIES PAIN.
[2018-09-20] MEDS: ATORVASTATIN 20 MG TAB PO SCH (21:55)
[2018-09-20] MEDS: POLYETHYLENE GLYCOL 3350 17 GM PACK PO SCH (23:34)
[2018-09-21] VITALS: BP 107/64
[2018-09-21] MEDS: CEFTAZIDIME SOD 1 GM/NS 50ML 50 ML IV SCH (00:40)
[2018-09-21] MEDS: KCL 20MEQ/.9 SOD CHL 1,000 ML IV SCH (00:48)
[2018-09-21] MEDS: IPRATROPIUM BROMIDE 0.02% 2.5 ML NEB NEB SCH ×2 (01:07→08:05)
--- NOTE | 2018-09-21 01:17 | NUR ---
PATIENT IS SOUNDLY ASLEEP WITHOUT RESPIRATORY DISTRESS, HEAD OF BED ELEVATED AND CALL LIGHT WITHIN EASY REACH.
--- NOTE | 2018-09-21 02:38 | NUR ---
WALKING ROUNDS MADE, PATIENT RECEIVING BREATHING TREATMENT.
[2018-09-21] MEDS: ALBUTEROL SULF 0.083% NEB SOLN 3 ML NEB NEB SCH ×2 (03:10→08:05)
[2018-09-21 04:00] VITALS: BP 115/60
[2018-09-21] MEDS: METRONIDAZOLE 500MG/NS 100ML 100 ML IV SCH (06:20)
--- NOTE | 2018-09-21 06:35 | NUR ---
PATIENT INCONTINENT OF LOOSE STOOL, HE'S KEPT CLEAN AND DRY, REPOSITION IN BED FOR COMFORT. NO RESPIRATORY DISTRESS OBSERVED, HEAD OF BED ELEVATED.
--- NOTE | 2018-09-21 07:43 | Progress Note ---
DATE: SUBJECTIVE: The patient is here for fever, sepsis, pneumonia, sacral decubitus ulcer, and urinary tract infection. The patient has an indwelling catheter is contracted because of stroke. The patient also has malnutrition. Currently is alert and oriented x3. MEDICINES: He is on are atorvastatin, ceftazidime, Lovenox, guaifenesin, Megace, metronidazole, sulfasalazine, and tamsulosin. PHYSICAL EXAMINATION: VITAL SIGNS: Temperature is 98.2, pulse of 80, respirations of 18, blood pressure is 115/60, and pulse oximetry of 98%. HEENT: Normocephalic and atraumatic. Pupils are reactive to light and accommodation. The patient is edentulous. CVS: S1, S2 normal. Regular rhythm. Contractures in the upper extremities. ABDOMEN: Scaphoid, nontender. EXTREMITIES: The patient's left lower extremity with swelling, erythema in the thigh area. Scrotal swelling and erythema has decreased quite a bit. The patient has an indwelling catheter in the left lower extremity with atrophy seen too. LABORATORY DATA: None done today. MICROBIOLOGY: Acinetobacter baumannii on both the Gram stain and blood culture and also wound culture. ASSESSMENT: 1. Sepsis secondary to Acinetobacter. 2. Cellulitis and sacral decubitus ulcers. 3. Hypertension. 4. Hyperkalemia. 5. History of cerebrovascular disease with dysphagia, failed MBS. 6. Deep venous thrombosis. 7. Cachexia. 8. Malnutrition. PLAN: 1. To discharge the patient to rehab facility when bed available. Continue with IV antibiotics. The patient is currently on ceftazidime and Flagyl for aspiration and also bacteremia. 2. Family has been approached about hospice and also long-term care. Further recommendation per clinical course. The patient's prognosis is very guarded. We will continue to monitor the patient and the patient is DNR. MD IKE Singer/RAZIA /[id number]
[2018-09-21 08:33] VITALS: BP 131/75
[2018-09-21] MEDS: POLYETHYLENE GLYCOL 3350 17 GM PACK PO SCH (09:00)
--- NOTE | 2018-09-21 09:01 | NUR ---
Report called to [facility], given to Lucinda. Patient's was also notified of patient being transferred this morning to [facility] room 300. Per medical report room was changed from 100 to 300.
--- NOTE | 2018-09-21 09:45 | NUR ---
Toshia, patient's caregiver is at bedside.
[2018-09-21 10:00] VITALS: BP 131/75
[2018-09-21] MEDS: METOPROLOL SUCCINATE 50 MG TAB XL PO SCH (10:00)
[2018-09-21] MEDS: MEGACE 400MG/ 10ML CUP PO SCH (10:00)
[2018-09-21] MEDS: TAMSULOSIN HCL 0.4 MG CAP PO SCH (10:00)
[2018-09-21] MEDS: ENOXAPARIN SOD INJ 40 MG/0.4 ML SYR SC SCH (10:00)
--- NOTE | 2018-09-21 12:48 | NUR ---
LATE ENTRY: CM SPOKE TO PATIENT POA OVER THE PHONE REGARDING IMM LETTER. IMM LETTER GIVEN WITH EXPLANATION BASED ON ANTICIPATED DISCHARGE DATE. ORIGINAL SIGNED USING TELEPHONE CONSENT AND PLACED IN CHART; COPY OF ORIGINAL DOCUMENT GIVEN TO PATIENT AT BEDSIDE AND PLACED IN CARE TRANSITION FOLDER. BEDSIDE RN JORDAN WITNESSED THE CALL AND CO-SIGNED DOCUMENT . CM CONTACT INFORMATION GIVEN TO PATIENT FOR ANY NEEDS OR CONCERNS. PATIENT WITH NO FURTHER QUESTIONS. POA: : JULIO BAEZAIN: [phone]
== END 2018-09-21 11:15 | DRG 698 ==
LOC: ER 19:25 → ERHOLD 23:16 → ICU 23:47 → MED/SURG2 09-16 09:09
PROVIDERS: ADMIT Family Medicine; ATTEND Family Medicine
PROC: 02HV33Z Insertion of Infusion Device into Superior Vena Cava, Percutaneous Approach (ICD-10-PCS; principal; 2018-09-13)
PROC: 30243N1 Transfusion of Nonautologous Red Blood Cells into Central Vein, Percutaneous Approach (ICD-10-PCS; 2018-09-16)
DX: T83.518A Infection and inflammatory reaction due to other urinary catheter, initial encounter (principal); A41.89 Other specified sepsis; L89.304 Pressure ulcer of unspecified buttock, stage 4; R65.21 Severe sepsis with septic shock; G93.41 Metabolic encephalopathy; J15.9 Unspecified bacterial pneumonia; J69.0 Pneumonitis due to inhalation of food and vomit; I48.92 Unspecified atrial flutter; I82.401 Acute embolism and thrombosis of unspecified deep veins of right lower extremity; I82.502 Chronic embolism and thrombosis of unspecified deep veins of left lower extremity; R64 Cachexia; E46 Unspecified protein-calorie malnutrition; D61.818 Other pancytopenia; M86.8X8 Other osteomyelitis, other site; Z66 Do not resuscitate; I10 Essential (primary) hypertension; Z88.0 Allergy status to penicillin; I69.311 Memory deficit following cerebral infarction; Z79.01 Long term (current) use of anticoagulants; D63.8 Anemia in other chronic diseases classified elsewhere; R31.9 Hematuria, unspecified; N40.1 Benign prostatic hyperplasia with lower urinary tract symptoms; R33.8 Other retention of urine; N50.89 Other specified disorders of the male genital organs; Z68.30 Body mass index [BMI] 30.0-30.9, adult; M24.50 Contracture, unspecified joint; E87.5 Hyperkalemia; I69.321 Dysphasia following cerebral infarction; Z85.89 Personal history of malignant neoplasm of other organs and systems; R16.1 Splenomegaly, not elsewhere classified; I49.9 Cardiac arrhythmia, unspecified; Z74.01 Bed confinement status; F03.90 Unspecified dementia, unspecified severity, without behavioral disturbance, psychotic disturbance, mood disturbance, and anxiety
CPT/HCPCS: 36415; 71045; 72220; 74177; 74230; 80048; 80053; 80202; 81001; 82550; 82553; 83605; 83735; 84132; 84484; 85025; 85610; 85730; 86850; 86900; 86920; 87040; 87071; 87086; 87186; 87205; 93005; 93306; 93970; 94640; 96367; 96372; 97139; 99284; J0692; J0713; J1650; J3370; J3480; J7030; J7050; P9016; Q9967

== ENCOUNTER 2019-01-27 15:59 | Inpatient (IN) | payer MEDICARE, OTHER ==
[~2019-01-27] VITALS: Ht 175.3 cm; Wt 54.4 kg
[~2019-01-27 15:59] MED LIST: ALBUTEROL0.63 MG/3 BLADIN; FLOMAX0.4 MG PO; LIPITOR20 MG; MEGESTROL400 MG/10 PO; METOPROLOL SUCC25 MG; MIRALAX17 GM PO; MUCINEX DM ER1 EACH PO; TYLENOL WITH C1 EACH PO
--- OUTSIDE RECORDS SUMMARY | 2019-01-27 16:03 | XMS REPORT | Continuity of Care Document ---
Author Author [employer] Address Unknown Phone Unavailable Care Team Providers Care Cilnical Scientist Name Role Phone [facility] [employer] Unavailable Unavailable Problems Problem Status Onset Date Classification Date Reported Comments Source Fever Active Problem 09/21/2018 [facility] Indwelling catheter present on admission Active Problem 09/21/2018 [facility] Pneumonia Active Problem 09/21/2018 [facility] Sacral decubitus ulcer, stage IV Active Problem 09/21/2018 [facility] Sepsis Active Problem 09/21/2018 [facility] UTI due to urinary indwelling Regalado catheter Active Problem 09/21/2018 [facility] Wound infection Active Problem 09/21/2018 [facility] Medications Medication Details Route Status Patient Instructions Ordering Provider Order Date Source Acetaminophen With Codeine (Tylenol With Codeine #3 Tablet) 1 Each Tablet as needed for Pain Active [facility] Albuterol Sulfate 0.63 Mg/3 Ml Vial.neb as needed for [id number] [facility] Atorvastatin Calcium (Lipitor) 20 Mg Tablet Daily Active [facility] Guaifenesin/Dextromethorphan (Mucinex Dm Er 600-30 Mg Tablet) 1 Each Tab.er.12h Tid Prn for Cough Active [facility] Megestrol Acetate 400 Mg/10 Ml Oral.susp Daily Active [facility] Metoprolol Succinate 25 Mg Tab.er.24h Every 12 Hours Active [facility] Polyethylene Glycol 3350 (Miralax) 17 Gm Powd.pack Daily [facility] Tamsulosin Hcl (Flomax*) 0.4 Mg Cap Twice A Day [facility] Allergies, Adverse Reactions, Alerts Substance Category Reaction Severity Reaction type Status Date Reported Comments Source Penicillin SWELLING Mild Allergy to Substance Active 06/17/2011 [facility] Immunizations No Data Provided for This Section Results Order Name Results Value Reference Range Date Interpretation Comments Source Serum or plasma sodium measurement (moles/volume) 140 136 - 145 09/20/2018 [facility] Serum or plasma potassium measurement (moles/volume) 3.2 3.5 - 5.1 09/20/2018 [facility] Serum or plasma chloride measurement (moles/volume) 114 98 - 107 09/20/2018 [facility] Serum or plasma carbon dioxide, total measurement (moles/volume) 19 22 - 29 09/20/2018 [facility] Serum or plasma anion gap 10.2 8 - 16 09/20/2018 [facility] Serum or plasma urea nitrogen measurement (mass/volume) 13 7 - 26 09/20/2018 [facility] Serum or plasma creatinine measurement (mass/volume) 0.52 0.72 - 1.25 09/20/2018 [facility] Serum or plasma urea nitrogen/creatinine mass ratio 25 6 - 25 09/20/2018 [facility] Estimated glomerular filtration rate (GFR) determination > 60 60 09/20/2018 [facility] Glucose measurement 91 74 - 118 09/20/2018 [facility] Serum or plasma calcium measurement (mass/volume) 8.2 8.4 - 10.2 09/20/2018 [facility] Blood leukocytes automated count (number/volume) 6.84 4.8 - 10.8 09/19/2018 [facility] Blood erythrocytes automated count (number/volume) 2.77 4.3 - 5.7 09/19/2018 [facility] Blood hemoglobin measurement (moles/volume) 8.8 14.0 - 18.0 09/19/2018 [facility] Automated blood hematocrit (volume fraction) 26.3 38.2 - 49.6 09/19/2018 [facility] Automated erythrocyte mean corpuscular volume 94.9 81 - 99 09/19/2018 [facility] Automated erythrocyte mean corpuscular hemoglobin (mass per erythrocyte) 31.8 28 - 32 09/19/2018 [facility] Automated erythrocyte mean corpuscular hemoglobin concentration measurement (mass/volume) 33.5 31 - 35 09/19/2018 [facility] RDW BldCo-Rto 17.3 11.7 - 14.4 09/19/2018 [facility] Automated blood platelet count (count/volume) 59 140 - 360 09/19/2018 [facility] Automated blood segmented neutrophil count as percentage of total leukocytes 39.1 38.7 - 80.0 09/19/2018 [facility] Automated blood lymphocyte count as percentage ot total leukocytes 35.4 18.0 - 39.1 09/19/2018 [facility] Automated blood monocyte count as percentage of total leukocytes 3.8 4.4 - 11.3 09/19/2018 [facility] Automated blood eosinophil count as percentage of total leukocytes 1.8 0.0 - 6.0 09/19/2018 [facility] Automated blood basophil count as percentage of total leukocytes 0.6 0.0 - 1.0 09/19/2018 [facility] IM GRANULOCYTES % 19.3 0.0 - 1.0 09/19/2018 [facility] Automated blood neutrophil count 2.7 2.1 - 6.9 09/19/2018 [facility] Blood lymphocytes count (number/volume) 2.4 1.0 - 3.2 09/19/2018 [facility] Blood monocytes automated count (number/volume) 0.3 0.2 - 0.8 09/19/2018 [facility] Automated blood eosinophil count 0.1 0.0 - 0.4 09/19/2018 [facility] Automated blood basophil count (count/volume) 0.0 0.0 - 0.1 09/19/2018 [facility] Absolute Immature Granulocyte (auto 1.32 0 - 0.1 09/19/2018 [facility] Differential Total Cells Counted 100 09/19/2018 [facility] Manual blood neutrophils/100 leukocytes 35 40 - 74 09/19/2018 [facility] Manual blood lymphocytes/100 leukocytes 44 19 - 48 09/19/2018 [facility] Manual blood monocytes/100 leukocytes 7 3.4 - 9.0 09/19/2018 [facility] Manual blood eosinophil count as percentage of total leukocytes 2 0 - 7 09/19/2018 [facility] Manual basophil percentage 1 0 - 1.5 09/19/2018 [facility] Manual blood metamyelocytes/100 leukocytes 7 0 - 0 09/19/2018 [facility] Manual blood myelocytes/100 leukocytes 3 0 - 0 09/19/2018 [facility] Blood promyelocytes/100 leukocytes 1 0 - 0 09/19/2018 [facility] Blood platelets count by estimate (number/volume) MODERATELY DECREASED 09/19/2018 [facility] Platelet morphology FEW LARGE 09/19/2018 [facility] Blood polychromasia detection by light microscopy FEW 09/19/2018 [facility] Blood hypochromia detection by light microscopy MODERATE 09/19/2018 [facility] Blood anisocytosis detection by light microscopy MODERATE 09/19/2018 [facility] RBC morphology ABNORMAL 09/19/2018 [facility] Blood culture NO GROWTH AFTER 72 HOURS 09/18/2018 [facility] Blood lymphocytes variant count (number/volume) 2 09/17/2018 [facility] Blood macrocytes detection by light microscopy MODERATE 09/17/2018 [facility] Serum or plasma magnesium measurement (mass/volume) 1.8 1.3 - 2.1 09/16/2018 [facility] Serum or plasma trough vancomycin level at trough (mass/volume) 16.4 5.0 - 10.0 09/15/2018 [facility] Manual blood band neutrophils form/100 leukocytes 13 09/15/2018 [facility] Blood josé luis cells detection by light microscopy MODERATE 09/15/2018 [facility] Blood schistocytes detection by light microscopy RARE 09/15/2018 [facility] Serum or plasma total bilirubin measurement (mass/volume) 0.9 0.2 - 1.2 09/15/2018 [facility] Aspartate Amino Transf (AST/SGOT) 17 5 - 34 09/15/2018 [facility] Serum or plasma alanine aminotransferase measurement (enzymatic activity/volume) 26 0 - 55 09/15/2018 [facility] Serum or plasma protein measurement (mass/volume) 4.9 6.5 - 8.1 09/15/2018 [facility] Serum or plasma albumin measurement (mass/volume) 2.3 3.5 - 5.0 09/15/2018 [facility] Plasma globulin measurement (mass/volume) 2.6 2.3 - 3.5 09/15/2018 [facility] Serum or plasma albumin/globulin mass ratio 0.9 0.8 - 2.0 09/15/2018 [facility] Serum or plasma alkaline phosphatase measurement (enzymatic activity/volume) 539 40 - 150 09/15/2018 [facility] Serum or plasma creatine kinase measurement (enzymatic activity/volume) 56 30 - 200 09/14/2018 [facility] Serum or plasma creatine kinase MB measurement (mass/volume) 2.20 0 - 5.0 09/14/2018 [facility] Troponin I measurement by highly sensitive enzyme immunoassay 1.557 0 - 0.300 09/14/2018 [facility] Blood poikilocytosis detection by light microscopy SLIGHT 09/14/2018 [facility] Bacteria identification in wound by culture Organism: ACINETOBACTER BAUMANNII/HAEMOL 09/13/2018 [facility] Urine color determination YELLOW YELLOW 09/13/2018 [facility] Urine clarity HAZY CLEAR 09/13/2018 [facility] Specific gravity of Urine by Test strip 1.015 1.010 - 1.025 09/13/2018 [facility] Urine pH measurement by automated test strip 7 5 - 7 09/13/2018 [facility] Urine leukocyte esterase detection by dipstick NEGATIVE NEGATIVE 09/13/2018 [facility] Urine nitrite detection NEGATIVE NEGATIVE 09/13/2018 [facility] Urine protein measurement by test strip (mass/volume) TRACE NEGATIVE 09/13/2018 [facility] Urine glucose detection NEGATIVE NEGATIVE 09/13/2018 [facility] Urine ketones detection by automated test strip NEGATIVE NEGATIVE 09/13/2018 [facility] Urine urobilinogen measurement by test strip (mass/volume) 0.2 0.2 - 1 09/13/2018 [facility] Urine total bilirubin measurement (mass/volume) NEGATIVE NEGATIVE 09/13/2018 [facility] Urine erythrocytes detection TRACE NEGATIVE 09/13/2018 [facility] Automated urine sediment leukocyte count by microscopy (number/high power field) 6-10 0 - 5 09/13/2018 [facility] Erythrocytes detection in urine sediment by light microscopy 6-10 0 - 5 09/13/2018 [facility] Bacteria detection in urine sediment by light microscopy MODERATE NONE 09/13/2018 [facility] Epithelial cells detection in urine sediment by light microscopy FEW NONE 09/13/2018 [facility] Amorphous sediment detection in urine sediment by light microscopy MANY FEW 09/13/2018 [facility] Prothrombin time (PT) in platelet poor plasma by coagulation assay 17.0 11.9 - 14.5 09/13/2018 [facility] INR in Platelet poor plasma by Coagulation assay 1.32 09/13/2018 [facility] Activated partial thromboplastin time (aPTT) in platelet poor plasma bycoagulation assay 33.4 23.8 - 35.5 09/13/2018 [facility] Lactic Acid Level 19.6 4.5 - 19.8 09/13/2018 [facility] Bacterial blood culture Organism: ACINETOBACTER BAUMANNII/HAEMOL 09/13/2018 [facility] Pathology Reports No Data Provided for This Section Diagnostic Reports No Data Provided for This Section Consultation Notes No Data Provided for This Section Discharge Summaries No Data Provided for This Section History and Physicals No Data Provided for This Section Vital Signs No Data Provided for This Section Encounters Location Location Details Encounter Type Encounter Number Reason For Visit Attending Provider ADM Date DC Date Status Source Departed Emergency Room [id number] MARIANA VERMA MD 10/11/2017 10/11/2017 [facility] Discharged Inpatient [id number] OWEN BRAR MD 09/13/2018 09/21/2018 [facility] Procedures Procedure Code Date Perfomer Comments Source Computed tomography of abdomen and pelvis with contrast [id number] 09/16/2018 [facility] Assessment and Plan No Data Provided for This Section Plan of Care Plan of Care Date Source Discharge Date 09/21/18 11:15am Disposition TRANSFER LONG TERM Prescriptions See Medication Section 09/21/2018 [facility] Discharge Date 10/11/17 7:20pm Disposition HOME, SELF-CARE Condition at Discharge Stable Instructions/Education Provided Sprains - Knee Prescriptions See Medication Section Referrals ADILENE CORTES MD Address: [address] [place] [id number] Additional Instructions/Education Return to the closest emergency room if symptoms worsen. You may also take a maximum of 500mg Tylenol every 4 hours as needed for pain. Wear knee immbolizer Elevate your knee above your heart. Follow up with orthopedic surgeon tomorrow. 10/11/2017 [facility] Social History Social History Date Source Smoking Status Start Date Stop Date Never Smoker 09/21/2018 [facility] Family History No Data Provided for This Section Advance Directives Order Name Results Value Date Source Advance Directives Advance Directives Directive Response Recorded Date/Time Does the patient have an advance directive? No 09/14/18 12:12am If yes, is advance directive on file with [facility]? No 09/14/18 12:12am If not on file with [facility] will patient provide a copy? Yes 09/14/18 12:12am Do you have a Directive to Physician? No 09/13/18 8:10pm Do you have a Medical Power of Crossword Puzzle Maker? No 09/13/18 8:10pm Do you have an out of hospital Do Not Resuscitate Order? No 09/13/18 8:10pm Do you have any special needs we should be aware of? No 09/13/18 8:10pm Do you have a support person here with you today? Yes 09/13/18 8:10pm Did patient receive Notice of Privacy Practices? Yes 09/13/18 8:10pm Did patient receive patient rights and responsibilities? Yes 09/13/18 8:10pm 09/21/2018 [facility] Advance Directives Advance Directives Directive Response Recorded Date/Time Does the patient have an advance directive? No 12/06/07 6:34pm If yes, is advance directive on file with [facility]? No 12/06/07 6:34pm If not on file with [facility] will patient provide a copy? No 06/17/11 1:23pm Do you have a Directive to Physician? No 10/11/17 6:15pm Do you have a Medical Power of Crossword Puzzle Maker? No 10/11/17 6:15pm Do you have an out of hospital Do Not Resuscitate Order? No 10/11/17 6:15pm Do you have any special needs we should be aware of? No 10/11/17 6:15pm Do you have a support person here with you today? Yes 10/11/17 6:15pm Did patient receive Notice of Privacy Practices? Yes 10/11/17 6:15pm Did patient receive patient rights and responsibilities? Yes 10/11/17 6:15pm 10/11/2017 [facility] Functional Status No Data Provided for This Section
--- OUTSIDE RECORDS SUMMARY | 2019-01-27 16:03 | XMS REPORT | Clinical Summary ---
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 05/21/2018 Discontinued (Stop Taking at Discharge) nystatin (MYCOSTATIN) Take 500,000 0 100,000 unit/mL Units by suspension mouth every 6 (six) hours. Swish in mouth 05/21/2018 Discontinued (Stop Taking at Discharge) morPHINE 4 mg/mL Infuse 4 mg 0 injection into a venous catheter every 6 (six) hours as needed for severe pain. 05/21/2018 Discontinued (Stop Taking at Discharge) acetaminophen (TYLENOL) Take 650 mg 0 325 MG tablet by mouth every 6 (six) hours as needed for fever. 05/21/2018 Discontinued (Stop Taking at Discharge) ondansetron in dextrose Infuse 4 mg 0 solution into a venous catheter every 6 (six) hours as needed. 05/21/2018 Discontinued (Stop Taking at Discharge) potassium chloride Take 20 mEq 0 (KLOR-CON) 20 mEq packet by mouth daily as needed. 05/21/2018 Discontinued (Stop Taking at Discharge) vancomycin 1 gram/250 mL Infuse 1,000 0 solution mg into a venous catheter every 12 (twelve) hours. 05/21/2018 Discontinued (Stop Taking at Discharge) acetylcysteine (MUCOMYST) Take 400 mg 0 100 mg/mL (10 %) oral by mouth solution every 6 (six) hours. neb 05/21/2018 Discontinued (Stop Taking at Discharge) ydvmbuywyzth-mcttlozzgu-t Infuse 3.375 0 extrs (ZOSYN) 3.375 g [...] 10 days. 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 Last Filed Vital Signs Reading Time Taken Comments Vital Sign 109/53 05/21/2018 4:07 PM CENTRIFUGAL SEPARATOR Blood Pressure 94 05/21/2018 4:07 PM CENTRIFUGAL SEPARATOR Pulse 36.7 C (98.1 F) 05/21/2018 4:07 PM CENTRIFUGAL SEPARATOR Temperature 16 05/21/2018 4:07 PM CENTRIFUGAL SEPARATOR Respiratory Rate 96% 05/21/2018 4:07 PM CENTRIFUGAL SEPARATOR Oxygen Saturation - - Inhaled Oxygen Concentration 70.5 kg (155 lb 8 oz) 04/10/2018 12:06 PM CENTRIFUGAL SEPARATOR Weight 180.3 cm (5' 11") 04/10/2018 12:06 PM CENTRIFUGAL SEPARATOR Height 21.69 04/10/2018 12:06 PM CENTRIFUGAL SEPARATOR Body Mass Index Plan of Treatment Health Maintenance Due Date Last Done Comments SHINGLES VACCINES (#1) 1983 65+ PNEUMOCOCCAL VACCINE 1998 (1 of 2 - PCV13) INFLUENZA VACCINE 11/29/2018 Implants Device Identifier Shelf Expiration Date Model / Serial / Lot Implanted Type 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 [employer] Navalign Vascular N/A: N/A [employer] Uniset Vena Cava Filter - Filter PERIPHERAL [id number] INTERVENTI Implanted: 04/11/2018 at [facility] (Quantity not on file) Procedures Comments Procedure Name Priority Date/Time Associated Diagnosis HC COMPLETE BLD COUNT Routine 05/21/2018 W/AUTO DIFF 7:40 AM CENTRIFUGAL SEPARATOR CBC WITH PLATELET AND Routine 05/15/2018 DIFFERENTIAL 6:00 AM CENTRIFUGAL SEPARATOR ESTIMATED GFR Routine 05/15/2018 5:30 AM CENTRIFUGAL SEPARATOR BASIC METABOLIC PANEL Routine 05/15/2018 5:30 AM CENTRIFUGAL SEPARATOR HC COMPLETE BLD COUNT Routine 05/14/2018 W/AUTO DIFF 8:10 PM CENTRIFUGAL SEPARATOR XR CHEST 1 VW PORTABLE Routine 05/10/2018 12:55 PM CENTRIFUGAL SEPARATOR PREALBUMIN LEVEL Routine 05/09/2018 4:00 AM CENTRIFUGAL SEPARATOR C-REACTIVE PROTEIN Routine 05/09/2018 4:00 AM CENTRIFUGAL SEPARATOR SEDIMENTATION RATE Routine 05/09/2018 4:00 AM CENTRIFUGAL SEPARATOR HEMOGLOBIN & HEMATOCRIT Routine 05/09/2018 4:00 AM CENTRIFUGAL SEPARATOR PARTIAL THROMBOPLASTIN Routine 05/09/2018 TIME (PTT) 4:00 AM CENTRIFUGAL SEPARATOR ESTIMATED GFR Routine 05/08/2018 3:18 AM CENTRIFUGAL SEPARATOR HC COMPLETE BLD COUNT Routine 05/08/2018 W/AUTO DIFF 3:18 AM CENTRIFUGAL SEPARATOR BASIC METABOLIC PANEL Routine 05/08/2018 3:18 AM CENTRIFUGAL SEPARATOR POC GLUCOSE Routine 05/04/2018 9:14 PM CENTRIFUGAL SEPARATOR ESTIMATED GFR Routine 05/04/2018 6:20 AM CENTRIFUGAL SEPARATOR HC COMPLETE BLD COUNT Routine 05/04/2018 W/AUTO DIFF 6:20 AM CENTRIFUGAL SEPARATOR BASIC METABOLIC PANEL Routine 05/04/2018 6:20 AM CENTRIFUGAL SEPARATOR CONSULT TO OSTOMY CARE Routine 05/01/2018 NURSE 7:00 PM CENTRIFUGAL SEPARATOR ESTIMATED GFR Routine 04/30/2018 5:05 AM CENTRIFUGAL SEPARATOR MAGNESIUM LEVEL Routine 04/30/2018 5:05 AM CENTRIFUGAL SEPARATOR HC COMPLETE BLD COUNT Routine 04/30/2018 W/AUTO DIFF 5:05 AM CENTRIFUGAL SEPARATOR BASIC METABOLIC PANEL Routine 04/30/2018 5:05 AM CENTRIFUGAL SEPARATOR CLOSTRIDIUM DIFFICILE Routine 04/28/2018 TOXIN 5:50 PM CENTRIFUGAL SEPARATOR XR CHEST 1 VW PORTABLE Routine 04/25/2018 3:55 PM CENTRIFUGAL SEPARATOR HC COMPLETE BLD COUNT Routine 04/23/2018 W/AUTO DIFF 5:35 AM CENTRIFUGAL SEPARATOR ESTIMATED GFR Routine 04/23/2018 4:00 AM CENTRIFUGAL SEPARATOR PHOSPHORUS LEVEL Routine 04/23/2018 4:00 AM CENTRIFUGAL SEPARATOR MAGNESIUM LEVEL Routine 04/23/2018 4:00 AM CENTRIFUGAL SEPARATOR BASIC METABOLIC PANEL Routine 04/23/2018 4:00 AM CENTRIFUGAL SEPARATOR HC COMPLETE BLD COUNT Routine 04/21/2018 W/AUTO DIFF 4:35 AM CENTRIFUGAL SEPARATOR ESTIMATED GFR Routine 04/21/2018 4:00 AM CENTRIFUGAL SEPARATOR PHOSPHORUS LEVEL Routine 04/21/2018 4:00 AM CENTRIFUGAL SEPARATOR MAGNESIUM LEVEL Routine 04/21/2018 4:00 AM CENTRIFUGAL SEPARATOR BASIC METABOLIC PANEL Routine 04/21/2018 4:00 AM CENTRIFUGAL SEPARATOR POC GLUCOSE Routine 04/20/2018 1:31 AM CENTRIFUGAL SEPARATOR ESTIMATED GFR Routine 04/19/2018 5:50 AM CENTRIFUGAL SEPARATOR MAGNESIUM LEVEL Routine 04/19/2018 5:50 AM CENTRIFUGAL SEPARATOR BASIC METABOLIC PANEL Routine 04/19/2018 5:50 AM CENTRIFUGAL SEPARATOR HC COMPLETE BLD COUNT Routine 04/19/2018 W/AUTO DIFF 5:50 AM CENTRIFUGAL SEPARATOR XR CHEST 1 VW PORTABLE Routine 04/18/2018 10:27 AM CENTRIFUGAL SEPARATOR ESTIMATED GFR Routine 04/18/2018 4:55 AM CENTRIFUGAL SEPARATOR VANCOMYCIN LEVEL, RANDOM Routine 04/18/2018 4:55 AM CENTRIFUGAL SEPARATOR MAGNESIUM LEVEL Routine 04/18/2018 4:55 AM CENTRIFUGAL SEPARATOR BASIC METABOLIC PANEL Routine 04/18/2018 4:55 AM CENTRIFUGAL SEPARATOR HC COMPLETE BLD COUNT Routine 04/18/2018 W/AUTO DIFF 4:55 AM CENTRIFUGAL SEPARATOR POC GLUCOSE Routine 04/17/2018 3:40 PM CENTRIFUGAL SEPARATOR POC GLUCOSE Routine 04/17/2018 12:19 PM CENTRIFUGAL SEPARATOR POC GLUCOSE Routine 04/17/2018 7:28 AM CENTRIFUGAL SEPARATOR RESPIRATORY PATHOGEN Routine 04/17/2018 PANEL 6:55 AM CENTRIFUGAL SEPARATOR ESTIMATED GFR Routine 04/17/2018 4:00 AM CENTRIFUGAL SEPARATOR PHOSPHORUS LEVEL Routine 04/17/2018 4:00 AM CENTRIFUGAL SEPARATOR MAGNESIUM LEVEL Routine 04/17/2018 4:00 AM CENTRIFUGAL SEPARATOR BASIC METABOLIC PANEL Routine 04/17/2018 4:00 AM CENTRIFUGAL SEPARATOR ESTIMATED GFR Routine 04/17/2018 12:00 AM CENTRIFUGAL SEPARATOR B NATRIURETIC PEPTIDE Routine 04/17/2018 12:00 AM CENTRIFUGAL SEPARATOR HC COMPLETE BLD COUNT Routine 04/17/2018 W/AUTO DIFF 12:00 AM CENTRIFUGAL SEPARATOR MAGNESIUM LEVEL Routine 04/17/2018 12:00 AM CENTRIFUGAL SEPARATOR BASIC METABOLIC PANEL Routine 04/17/2018 12:00 AM CENTRIFUGAL SEPARATOR URINALYSIS SCREEN AND Routine 04/17/2018 MICROSCOPY, WITH REFLEX 12:00 AM CENTRIFUGAL SEPARATOR TO CULTURE URINE CULTURE Routine 04/17/2018 12:00 AM CENTRIFUGAL SEPARATOR BLOOD CULTURE, AEROBIC & Routine 04/16/2018 ANAEROBIC 6:15 PM CENTRIFUGAL SEPARATOR BLOOD CULTURE, AEROBIC & Routine 04/16/2018 ANAEROBIC 6:15 PM CENTRIFUGAL SEPARATOR HC COMPLETE BLD COUNT Routine 04/16/2018 W/AUTO DIFF 5:10 PM CENTRIFUGAL SEPARATOR POC GLUCOSE Routine 04/16/2018 3:30 PM CENTRIFUGAL SEPARATOR XR CHEST 1 VW PORTABLE Routine 04/16/2018 2:37 PM CENTRIFUGAL SEPARATOR ESTIMATED GFR Routine 04/16/2018 4:00 AM CENTRIFUGAL SEPARATOR BASIC METABOLIC PANEL Routine 04/16/2018 4:00 AM CENTRIFUGAL SEPARATOR IONIZED CALCIUM STAT 04/14/2018 8:35 AM CENTRIFUGAL SEPARATOR MAGNESIUM LEVEL STAT 04/14/2018 8:35 AM CENTRIFUGAL SEPARATOR POTASSIUM LEVEL STAT 04/14/2018 8:35 AM CENTRIFUGAL SEPARATOR XR CERVICAL SPINE 1 VW STAT 04/13/2018 10:08 PM CENTRIFUGAL SEPARATOR POC GLUCOSE Routine 04/13/2018 8:27 AM CENTRIFUGAL SEPARATOR ESTIMATED GFR Routine 04/13/2018 5:45 AM CENTRIFUGAL SEPARATOR MAGNESIUM LEVEL Routine 04/13/2018 5:45 AM CENTRIFUGAL SEPARATOR BASIC METABOLIC PANEL Routine 04/13/2018 5:45 AM CENTRIFUGAL SEPARATOR HC COMPLETE BLD COUNT Routine 04/13/2018 W/AUTO DIFF 5:45 AM CENTRIFUGAL SEPARATOR URINALYSIS SCREEN AND Routine 04/12/2018 MICROSCOPY, WITH REFLEX 8:00 PM CENTRIFUGAL SEPARATOR TO CULTURE URINE CULTURE Routine 04/12/2018 8:00 PM CENTRIFUGAL SEPARATOR FL MODIFIED BARIUM Routine 04/12/2018 SWALLOW 4:02 PM CENTRIFUGAL SEPARATOR US DUPLEX VENOUS UPPER Routine 04/12/2018 EXTREMITY LEFT 9:40 AM CENTRIFUGAL SEPARATOR HC COMPLETE BLD COUNT Routine 04/12/2018 W/AUTO DIFF 4:20 AM CENTRIFUGAL SEPARATOR PARTIAL THROMBOPLASTIN Routine 04/12/2018 TIME (PTT) 4:20 AM CENTRIFUGAL SEPARATOR PROTHROMBIN TIME WITH INR Routine 04/12/2018 4:20 AM CENTRIFUGAL SEPARATOR ESTIMATED GFR Routine 04/12/2018 4:00 AM CENTRIFUGAL SEPARATOR MAGNESIUM LEVEL Routine 04/12/2018 4:00 AM CENTRIFUGAL SEPARATOR BASIC METABOLIC PANEL Routine 04/12/2018 4:00 AM CENTRIFUGAL SEPARATOR IR IVC FILTER PLACEMENT Routine 04/11/2018 4:18 PM CENTRIFUGAL SEPARATOR B NATRIURETIC PEPTIDE Routine 04/11/2018 5:45 AM CENTRIFUGAL SEPARATOR HC COMPLETE BLD COUNT Routine 04/11/2018 W/AUTO DIFF 5:45 AM CENTRIFUGAL SEPARATOR PARTIAL THROMBOPLASTIN Routine 04/11/2018 TIME (PTT) 5:45 AM CENTRIFUGAL SEPARATOR PROTHROMBIN TIME WITH INR Routine 04/11/2018 5:45 AM CENTRIFUGAL SEPARATOR ESTIMATED GFR Routine 04/11/2018 4:00 AM CENTRIFUGAL SEPARATOR PHOSPHORUS LEVEL Routine 04/11/2018 4:00 AM CENTRIFUGAL SEPARATOR MAGNESIUM LEVEL Routine 04/11/2018 4:00 AM CENTRIFUGAL SEPARATOR BASIC METABOLIC PANEL Routine 04/11/2018 4:00 AM CENTRIFUGAL SEPARATOR MANUAL DIFFERENTIAL Routine 04/10/2018 4:37 AM CENTRIFUGAL SEPARATOR ESTIMATED GFR Routine 04/10/2018 4:37 AM CENTRIFUGAL SEPARATOR PARTIAL THROMBOPLASTIN Routine 04/10/2018 TIME (PTT) 4:37 AM CENTRIFUGAL SEPARATOR PROTHROMBIN TIME WITH INR Routine 04/10/2018 4:37 AM CENTRIFUGAL SEPARATOR PHOSPHORUS LEVEL Routine 04/10/2018 4:37 AM CENTRIFUGAL SEPARATOR MAGNESIUM LEVEL Routine 04/10/2018 4:37 AM CENTRIFUGAL SEPARATOR B NATRIURETIC PEPTIDE Routine 04/10/2018 4:37 AM CENTRIFUGAL SEPARATOR BASIC METABOLIC PANEL Routine 04/10/2018 4:37 AM CENTRIFUGAL SEPARATOR CBC WITH PLATELET AND Routine 04/10/2018 DIFFERENTIAL 4:37 AM CENTRIFUGAL SEPARATOR FIBRINOGEN Routine 04/10/2018 4:37 AM CENTRIFUGAL SEPARATOR D-DIMER Routine 04/10/2018 4:37 AM CENTRIFUGAL SEPARATOR FL MODIFIED BARIUM Routine 04/09/2018 SWALLOW 11:07 AM CENTRIFUGAL SEPARATOR URINALYSIS SCREEN AND Routine 04/09/2018 MICROSCOPY, WITH REFLEX 10:00 AM CENTRIFUGAL SEPARATOR TO CULTURE GRAM STAIN Routine 04/09/2018 10:00 AM CENTRIFUGAL SEPARATOR URINE CULTURE Routine 04/09/2018 10:00 AM CENTRIFUGAL SEPARATOR US DUPLEX VENOUS LOWER Routine 04/08/2018 EXTREMITY BILATERAL 5:52 PM CENTRIFUGAL SEPARATOR MRA NECK WO CONTRAST Routine 04/08/2018 3:30 PM CENTRIFUGAL SEPARATOR MRA HEAD WO CONTRAST Routine 04/08/2018 3:12 PM CENTRIFUGAL SEPARATOR MRI BRAIN WO CONTRAST Routine 04/08/2018 3:[address] HEAD WO CONTRAST STAT 04/08/2018 9:16 AM CENTRIFUGAL SEPARATOR XR CHEST 1 VW PORTABLE Routine 04/08/2018 6:06 AM CENTRIFUGAL SEPARATOR HC COMPLETE BLD COUNT Routine 04/08/2018 W/AUTO DIFF 3:01 AM CENTRIFUGAL SEPARATOR ESTIMATED GFR Routine 04/08/2018 12:02 AM CENTRIFUGAL SEPARATOR PROTHROMBIN TIME WITH INR Routine 04/08/2018 12:02 AM CENTRIFUGAL SEPARATOR PARTIAL THROMBOPLASTIN Routine 04/08/2018 TIME (PTT) 12:02 AM CENTRIFUGAL SEPARATOR CBC WITH PLATELET AND Routine 04/08/2018 DIFFERENTIAL 12:02 AM CENTRIFUGAL SEPARATOR BASIC METABOLIC PANEL Routine 04/08/2018 12:02 [address]AL [address] HEAD EXTERNAL STUDY Routine 04/04/2018 5:37 PM CENTRIFUGAL SEPARATOR MRI HEAD EXTERNAL STUDY Routine 03/28/2018 2:[address] HEAD EXTERNAL STUDY Routine 03/25/2018 10:54 AM CENTRIFUGAL SEPARATOR after 01/26/2018 Results * CBC with platelet and differential (05/21/2018 7:40 AM CENTRIFUGAL SEPARATOR) Only the most recent of 18 results within the time period is included. WBC 3.59 (L) 4.50 - 11.00 k/uL [facility] RBC 3.35 (L) 4.40 - 6.00 m/uL [facility] HGB 11.1 (L) 14.0 - 18.0 g/dL [facility] HCT 34.5 (L) 41.0 - 51.0 % [facility] MCV 103.0 (H) 82.0 - 100.0 fL [facility] MCH 33.1 27.0 - 34.0 pg [facility] MCHC 32.2 31.0 - 37.0 g/dL [facility] RDW - SD 60.1 (H) 37.0 - 55.0 fL [facility] MPV 10.4 8.8 - 13.2 fL [facility] Platelet count 109 (L) 150 - 400 k/uL [facility] Nucleated RBC 0.00 /100 WBC [facility] Neutrophils 64.1 39.0 - 69.0 % [facility] Lymphocytes 23.4 (L) 25.0 - 45.0 % [facility] Monocytes 6.1 0.0 - 10.0 % [facility] Eosinophils 2.8 0.0 - 5.0 % [facility] Basophils 1.1 (H) 0.0 - 1.0 % [facility] Immature 2.5 (H)Comment: "Immature 0.0 - 1.0 % [place] granulocytes granulocytes" (promyelocytes, [facility] myelocytes, metamyelocytes) HOSPITAL Specimen Blood Performing Organization Address City/[facility] Cent[facility]ode Phone Number [facility] [place] [address] PATHOLOGY AND GENOMIC MEDICINE [address] * Estimated GFR (05/15/2018 5:30 AM CENTRIFUGAL SEPARATOR) Only the most recent of 16 results within the time period is included. Pathologist [facility] Estimated GFR >=90 mL/min/1.73 m2 [place] Comment: [facility] [place] rpretation G1 >=90 Normal or high G2 60-89Mildly decreased [id number] Mildly to moderately decreased [id number] Moderately to severely decreased G4 15-29Severely decreased G5 <15Kidney failure The eGFR was calculated using the Chronic Kidney Disease Epidemiology Collaboration (CKD-EPI) equation. Interpretation is based on recommendations of the National Kidney Foundation-Kidney Disease Outcomes Quality Initiative (NKF-KDOQI) published in 2014. Specimen Plasma specimen Performing Organization Address City/[facility] [place] [address] PATHOLOGY AND GENOMIC MEDICINE [address] * Basic metabolic panel (05/15/2018 5:30 AM CENTRIFUGAL SEPARATOR) Only the most recent of 16 results within the time period is included. Sodium 133 (L) 135 - 148 mEq/L [facility] Potassium 3.9 3.5 - 5.0 mEq/L [facility] Chloride 100 98 - 112 mEq/L [facility] CO2 23 (L) 24 - 31 mEq/L [facility] Anion gap 10@ANIO 7 - 15 mEq/L [facility] BUN 11 8 - 23 mg/dL [facility] Creatinine 0.51 (L) 0.70 - 1.20 mg/dL [facility] Glucose 100 (H) 65 - 99 mg/dL [facility] Calcium 9.2 8.8 - 10.2 mg/dL [facility] Specimen Plasma specimen Performing Organization Address City/[facility] Cent[facility]ode Phone Number [facility] DEPARTMENT [address] [address] PATHOLOGY AND GENOMIC MEDICINE [address] * XR Chest 1 Vw Portable (05/10/2018 12:55 PM CENTRIFUGAL SEPARATOR) Only the most recent of 5 results within the time period is included. Specimen Narrative Performed At EXAMINATION:XR CHEST 1 VW PORTABLE [facility] CLINICAL HISTORY:Shortness of breath COMPARISON:Most Recent Prior at [facility] IMPRESSION: Heart is normal in size. No focal infiltrates. Minimal basilar scarring or atelectasis. No pneumothorax or effusion. Diffuse osteopenia. [facility]-[id number] Procedure Note Interface, Radiology Results Incoming - 05/10/2018 1:08 PM CENTRIFUGAL SEPARATOR EXAMINATION: XR CHEST 1 VW PORTABLE CLINICAL HISTORY: Shortness of breath COMPARISON: Most Recent Prior at [facility] IMPRESSION: Heart is normal in size. No focal infiltrates. Minimal basilar scarring or atelectasis. No pneumothorax or effusion. Diffuse osteopenia. [facility]-[id number] Performing Organization Address City/[facility]/Zipcode Phone Number [facility] [address] [place] [id number] * Hemoglobin & hematocrit (05/09/2018 4:00 AM CENTRIFUGAL SEPARATOR) HGB 11.1 (L) 14.0 - 18.0 g/dL [facility] HCT 33.9 (L) 41.0 - 51.0 % [facility] Specimen Blood Performing Organization Address City/State/Zipcode Phone Number [facility] DEPARTMENT OF [address] [place] [id number] PATHOLOGY AND GENOMIC MEDICINE [address] * Partial thromboplastin time, activated (05/09/2018 4:00 AM CENTRIFUGAL SEPARATOR) Only the most recent of 5 results within the time period is included. [facility] PTT 28.6 23.0 - 36.0 sec [place] Comment: [facility] PTT therapeutic range for HOSPITAL unfractionated heparin is 61.0-112.0 seconds which corresponds to Anti-Xa 0.3-0.7 U/ml. Specimen Blood Performing Organization Address City/[facility] Centercode Phone Number [facility] DEPARTMENT [address] * Sedimentation rate (05/09/2018 4:00 AM CENTRIFUGAL SEPARATOR) [facility] Sedimentation 12 (H) 0 - 10 mm/hr [facility] Specimen Blood Performing Organization Address [facility]ode Phone Number [facility] [place] [address] PATH[address] * C-reactive protein (05/09/2018 4:00 AM CENTRIFUGAL SEPARATOR) [facility] CRP 0.76 (H) 0.00 - 0.50 mg/dL [facility] Specimen Plasma specimen Performing Organization Address [facility] Centercode Phone Number [facility] [place] [address] PATH[address] * Prealbumin level (05/09/2018 4:00 AM CENTRIFUGAL SEPARATOR) [facility] Prealbumin 15 (L) 16 - 32 mg/dL [facility] Specimen Serum Performing Organization Address [facility] Centercode Phone Number [facility] DEPARTMENT [address] AND [facility] [address] * POC glucose (05/04/2018 9:14 PM CENTRIFUGAL SEPARATOR) Only the most recent of 7 results within the time period is included. [facility] POC glucose 108 (H) 65 - 99 mg/dL [place] Comment: [facility] Notified RN HOSPITAL Meter ID: [id number] [employer]: Nwangwu Jose Raul B Specimen Performing Organization Address City/[facility] Centercode Phone Number [facility] [place] [address] PATHOLOGY AND [facility] [address] * Magnesium level (04/30/2018 5:05 AM CENTRIFUGAL SEPARATOR) Only the most recent of 12 results within the time period is included. Magnesium 1.9 1.6 - 2.4 mg/dL [facility] Specimen Plasma specimen Performing Organization Address [facility] Centercode Phone Number [facility] [place] [address] PATHOLOGY AND [facility] [address] * C difficile toxin (04/28/2018 5:50 PM CENTRIFUGAL SEPARATOR) Pathologist [facility] Clostridium No Clostridium difficle toxin [place] difficile toxin present [facility] Comment: HOSPITAL Specimen Information Specimen Source: Stool Specimen Site: Not otherwise specified Specimen Stool - Not otherwise specified Performing Organization Address [facility] Phone Number [facility] [place] [address] PATHOLOGY AND [facility] [address] * Phosphorus level (04/23/2018 4:00 AM CENTRIFUGAL SEPARATOR) Only the most recent of 5 results within the time period is included. Pathologist [facility] Phosphorus 2.9 2.4 - 4.5 mg/dL [facility] Specimen Plasma specimen Performing Organization Address [facility] Phone Number [facility] [place] [address] PATHOLOGY AND GENOMIC MEDICINE [address] * Vancomycin level, random (04/18/2018 4:55 AM CENTRIFUGAL SEPARATOR) Pathologist [facility] Vancomycin, 12.0 ug/mL [facility] Specimen Serum Performing Organization Address [facility] Phone Number [facility] [place] [address] PATHOLOGY AND GENOMIC MEDICINE [address] * Respiratory pathogen panel (04/17/2018 6:55 AM CENTRIFUGAL SEPARATOR) Pathologist [facility] Respiratory Negative for all pathogens [place] pathogen panel tested: [facility] Negative for Adenovirus HOSPITAL Negative for Coronavirus HKU1 Negative for Coronavirus [...] Nares - Not specified Performing Organization Address City/State/Zipcode Phone Number [facility] DEPARTMENT OF [address] [place] [address] PATHOLOGY AND GENOMIC MEDICINE [address] * Urinalysis screen and microscopy, with reflex to culture (04/17/2018 12:00 AM CENTRIFUGAL SEPARATOR) Only the most recent of 3 results within the time period is included. Specimen site Clean catch [facility] Color, UA Yellow [facility] Appearance, UA Clear [facility] Specific 1.013 1.001 - 1.035 [place] gravity, [facility] pH, UA 6.0 5.0 - 8.5 [facility] Protein, UA Negative Negative [facility] Glucose, UA Negative Negative [facility] Ketones, UA Negative Negative [facility] Bilirubin, UA Negative Negative [facility] Blood, UA Negative Negative [facility] Nitrite, UA Negative Negative [facility] Urobilinogen, 4.0 (A) <2.0 [facility] Leukocyte Negative Negative [place] esterase, [facility] Epithelial 1 /HPF [place] cells, [facility] WBC, UA 3 (H) 0 - 1 /HPF [facility] RBC, UA 2 0 - 5 /HPF [facility] Bacteria, UA None seen None seen [facility] Yeast, UA Few (A) [facility] Yeast with None seen [place] pseudohyphaeTHE [facility] Specimen Urine Performing Organization Address City/[facility]/Zipcode Phone Number [facility] DEPARTMENT OF [address] [place] [address] PATHOLOGY AND GENOMIC MEDICINE [address] * Urine culture (04/17/2018 12:00 AM CENTRIFUGAL SEPARATOR) Only the most recent of 3 results within the time period is included. Urine culture SEE COMMENTComment: [place] Bacteriuria screen negative. [facility] Specimen Performing Organization Address City/[facility] Centercode Phone Number [facility] [place] [address] PATHOLOGY AND GENOMIC MEDICINE [address] * B natriuretic peptide (04/17/2018 12:00 AM CENTRIFUGAL SEPARATOR) Only the most recent of 3 results within the time period is included. BNP 243 (H) 0 - 100 pg/mL [facility] Specimen Blood Performing Organization Address [facility] Centercode Phone Number [facility] DEPARTMENT OF [address] [place] [address] PATHOLOGY AND GENOMIC MEDICINE [address] * Blood culture, aerobic & anaerobic (04/16/2018 6:15 PM CENTRIFUGAL SEPARATOR) Only the most recent of 2 results within the time period is included. Blood culture No growth after 5 days of [place] isolate incubation. [facility] Comment: HOSPITAL Specimen Information Specimen Source: Blood Specimen Site: Antecubital, right Specimen Blood - Antecubital, right Performing Organization Address City/[facility] Centercode Phone Number [facility] DEPARTMENT OF [address] [place] [address] PATHOLOGY AND GENOMIC MEDICINE [address] * Potassium level (04/14/2018 8:35 AM CENTRIFUGAL SEPARATOR) Potassium 4.7 3.5 - 5.0 mEq/L [facility] Specimen Plasma specimen Performing Organization Address City/[facility]/Zipcode Phone Number [facility] [place] [address] PATHOLOGY AND GENOMIC MEDICINE [address] * Ionized calcium (04/14/2018 8:35 AM CENTRIFUGAL SEPARATOR) pH 7.48 [facility] Ionized calcium 0.98 (L) 1.11 - 1.32 mmol/L [facility] Specimen Plasma specimen Performing Organization Address [facility] Centercode Phone Number [facility] DEPARTMENT OF [address] [place] [address] PATHOLOGY AND GENOMIC MEDICINE [facility] [address] [place] [address] HOSPITAL * XR Cervical Spine 1 Vw (04/13/2018 10:08 PM CENTRIFUGAL SEPARATOR) Specimen Narrative Performed At EXAMINATION:XR CERVICAL SPINE 1 VW HM [facility] CLINICAL HISTORY: Neck paininitial exam COMPARISON: None. FINDINGS: A single frontal view of the cervical spine obtained. Multilevel degenerative changes. No obvious fracture. IMPRESSION: Single frontal view demonstrating multilevel degenerative change. No obvious fracture. [id number] Procedure Note Interface, Radiology Results Incoming - 04/13/2018 10:18 PM CENTRIFUGAL SEPARATOR EXAMINATION: XR CERVICAL SPINE 1 VW CLINICAL HISTORY: Neck pain initial exam COMPARISON: None. FINDINGS: A single frontal view of the cervical spine obtained. Multilevel degenerative changes. No obvious fracture. IMPRESSION: Single frontal view demonstrating multilevel degenerative change. No obvious fracture. [facility]-[id number] Performing Organization Address [facility] Centercode Phone Number [facility] [address] [place] [address] * FL Modified Barium Swallow (04/12/2018 4:02 PM CENTRIFUGAL SEPARATOR) Only the most recent of 2 results within the time period is included. Specimen Narrative Performed At EXAMINATION:FL MODIFIED BARIUM SWALLOW [facility] CLINICAL HISTORY:Dysphagiaknown cause COMPARISON:April 09, 2018 Fluoroscopy time: 2.3 minutes FINDINGS: The patient was given multiple consistencies of barium. The swallowing act was normal. There is silent aspiration with thin consistency barium. Laryngeal penetration was seen with nectar consistency. IMPRESSION: Silent aspiration with thin liquids. Please refer to Speech Pathology report for further details. [facility]-[id number] Procedure Note Interface, Radiology Results Incoming - 04/12/2018 6:03 PM CENTRIFUGAL SEPARATOR EXAMINATION: FL MODIFIED BARIUM SWALLOW CLINICAL HISTORY: Dysphagia known cause COMPARISON: April 09, 2018 Fluoroscopy time: 2.3 minutes FINDINGS: The patient was given multiple consistencies of barium. The swallowing act was normal. There is silent aspiration with thin consistency barium. Laryngeal penetration was seen with nectar consistency. IMPRESSION: Silent aspiration with thin liquids. Please refer to Speech Pathology report for further details. [facility]-[id number] Performing Organization Address City/State/Zipcode Phone Number [facility] [address] [facility] [place] [address] * Us duplex venous upper extremity (04/12/2018 9:40 AM CENTRIFUGAL SEPARATOR) Specimen Narrative Performed At [facility] Vascular Ultrasound Laboratory Upper Extremity Venous Report [address] [address], [place] [address] Pat.Name:LORI REID Pat.ID:[id number] .Date: 04/12/2018Refer.MD:TYREE CABRERA MD Exam Time: 9:25:00 AMStudy Type:UE Venous DOBAge:1935,82Y Sex: MALE Sonogrphr: Pranay Beavers RDMS, RVTPat. Stat.:Inpatient Room:[place] [address] TapeVol: , CPT - 4: 18118 Echo Event ID:[id number] Order ID:[id number] Reason for Study:Left upper extremity redness of [...] Radiology Results In - 04/12/2018 11:22 AM [facility] Vascular Ultrasound Laboratory Upper Extremity Venous Report [address] [address] Pat.Name: LORI REID Pat.ID: [id number] .Date: 04/12/2018 Refer.MD: TYREE CABRERA MD Exam Time: 9:25:00 AM Study Type:UE Venous Age: 1 1935,82Y Sex: MALE Sonogrphr: Pranay Beavers RDMS, RIGOT Pat. Stat.:Inpatient Room: [place] [address] Tape Vol: , CPT - 4: 76685 Echo Event ID:[id number] Order ID: [id number] Reason for Study:Left upper extremity redness of [...] RPVI Performing Organization Address City/State/Zipcode Phone Number [facility] [address] [place] [address] * Prothrombin time with INR (04/12/2018 4:20 AM CENTRIFUGAL SEPARATOR) Only the most recent of 4 results within the time period is included. Prothrombin 15.8 (H) 11.5 - 14.5 sec [facility] INR 1.3 [place] Comment: [facility] The International Normalized HOSPITAL Ratio (INR) is a therapeutic monitoring tool for patients who are stable on oral anticoagulant therapy. An INR of 2.0-3.0 is suggested for deep vein thrombosis/pulmonary embolism. Specimen Blood Performing Organization Address [facility]/Zipcode Phone Number [facility] DEPARTMENT OF [address] [place] [address] PATHOLOGY AND GENOMIC MEDICINE [address] * IR IVC Filter Placement (04/11/2018 4:18 PM CENTRIFUGAL SEPARATOR) Specimen Narrative Performed At Procedure [facility] 1. Inferior [...] The micropuncture sheath was removed and a 5-Armenian pigtail catheter was then placed over the [...] filter within the infrarenal inferior vena cava. [facility]-[id number] Procedure Note [facility], Radiology Results Incoming - 04/11/2018 5:42 PM CENTRIFUGAL SEPARATOR Procedure 1. Inferior vena cavogram 2. Placement [...] The micropuncture sheath was removed and a 5-Armenian pigtail catheter was then placed over the [...] filter within the infrarenal inferior vena cava. [facility]-[id number] Performing Organization Address City/[facility] Centercode Phone Number [facility] [address] [place] [address] * Manual differential (04/10/2018 4:37 AM CENTRIFUGAL SEPARATOR) Pathologist [facility] Manual PERFORMED [place] differential [facility] Neutrophils 74.0 (H) 39.0 - 69.0 % [facility] Lymphocytes 25.0 25.0 - 45.0 % [facility] Monocytes 1.0 0.0 - 10.0 % [facility] Eosinophils 0.0 0.0 - 5.0 % [facility] Basophils 0.0 0.0 - 1.0 % [facility] Metamyelocytes 0 % [facility] Promyelocytes 0 % [facility] Platelet slide Decreased (A) [facility] Anisocytosis Moderate [facility] Polychromasia Moderate [facility] Ovalocytes Moderate [facility] Specimen Performing Organization Address [facility] Phone Number [facility] [place] [address] PATHOLOGY AND GENOMIC MEDICINE [address] * Fibrinogen (04/10/2018 4:37 AM CENTRIFUGAL SEPARATOR) [facility] Fibrinogen 313 200 - 450 mg/dL [facility] Specimen Blood Performing Organization Address [facility] Centercowy Phone Number [facility] [place] [address] PATHOLOGY AND GENOMIC MEDICINE [address] * D-dimer (04/10/2018 4:37 AM CENTRIFUGAL SEPARATOR) [facility] D-dimer 14.49 (H) 0.00 - 0.40 ug/mL [place] Comment: FEU [facility] Units are ug/ml Fibrinogen HOSPITAL Equivalent Unit. When combined with low clinical [...] and malignancies. Specimen Blood Performing Organization Address [facility] Centercowy Phone Number [facility] DEPARTMENT OF [address] [place] [address] PATHOLOGY AND GENOMIC MEDICINE [address] * Gram stain (04/09/2018 10:00 AM CENTRIFUGAL SEPARATOR) Gram stain No WBC's or organisms seen. [place] result Comment: [facility] Specimen Information HOSPITAL Specimen Source: Urine Specimen Site: [place] Specimen Urine - [place] Performing Organization Address [facility] Centercowy Phone Number [facility] DEPARTMENT OF [address] [place] [address] PATHOLOGY AND GENOMIC MEDICINE [address] * Us duplex venous lower extremity (04/08/2018 5:52 PM CENTRIFUGAL SEPARATOR) Specimen Narrative Performed At [facility] Vascular Ultrasound Laboratory Lower Extremity Venous Report [address] [place] [address] Pat.Name:LORI REID Pat.ID:[id number] .Date: 04/08/2018 Refer.MD:TYREE CABRERA MD Exam Time: 5:18:00 PMStudy Type:LE Venous DOBAge:1935,82Y Sex: MALE Sonogrphr: Howard Almeida RVT Pat. Stat.:Inpatient Room:[id number]: [place], CPT - 4: 48156 Echo Event ID:[id number] Order ID:[id number] Reason for Study:Leg edema and immobility Procedures:Colorflow, [...] Radiology Results In - 04/08/2018 9:53 PM [facility] Vascular Ultrasound Laboratory Lower Extremity Venous Report [address] [place] [address] Pat.Name: LORI REID Pat.ID: [id number] .Date: 04/08/2018 Refer.MD: TYREE CABRERA MD Exam Time: 5:18:00 PM Study Type:LE Venous Age: 2 1935,82Y Sex: MALE Sonogrphr: Howard Almeida RVT Pat. Stat.:Inpatient Room: [id number] Tape Vol: VB, CPT - 4: 22712 Echo Event ID:[id number] Order ID: [id number] Reason for Study:Leg edema and immobility Procedures:Colorflow, [...] Baldomero Urena MD, RPVI Performing Organization Address City/[facility]/Zipcode Phone Number [facility] [address] [place] [address] * MRA Neck Wo Contrast (04/08/2018 3:30 PM CENTRIFUGAL SEPARATOR) Specimen Narrative Performed At EXAMINATION:MRA NECK WO CONTRAST [facility] CLINICAL HISTORY:previous ICH COMPARISON:None. IMPRESSION: 3-D reconstructions are processed off-line. No narrowing by NASCET criteria of the cervical internal carotid arteries. No hemodynamically significant narrowing of the distal common carotid arteries or visualized extracranial vertebral arteries. [facility]-[id number] Procedure Note Interface, Radiology Results Incoming - 04/08/2018 4:01 PM CENTRIFUGAL SEPARATOR EXAMINATION: MRA NECK WO CONTRAST CLINICAL HISTORY: previous ICH COMPARISON: None. IMPRESSION: 3-D reconstructions are processed off-line. No narrowing by NASCET criteria of the cervical internal carotid arteries. No hemodynamically significant narrowing of the distal common carotid arteries or visualized extracranial vertebral arteries. [facility]-[id number] Performing Organization Address City/[facility] Centercode Phone Number [facility] [address] [place] [address] * MRA Head Wo Contrast (04/08/2018 3:12 PM CENTRIFUGAL SEPARATOR) Specimen Narrative Performed At [facility] EXAMINATION:MRA HEAD WO CONTRAST CLINICAL HISTORY:previous ICH COMPARISON:None. IMPRESSION: 3-D reconstructions were processed off-line. Large right cerebral hemisphere parenchymal hematoma displaces the right MCA branches without evidence of significant narrowing. No focal narrowing, aneurysmal dilatation or vascular malformation of the [place] vessels. [facility]-[id number] Procedure Note Interface, Radiology Results Incoming - 04/08/2018 4:06 PM CENTRIFUGAL SEPARATOR EXAMINATION: MRA HEAD WO CONTRAST CLINICAL HISTORY: previous ICH COMPARISON: None. IMPRESSION: 3-D reconstructions were processed off-line. Large right cerebral hemisphere parenchymal hematoma displaces the right MCA branches without evidence of significant narrowing. No focal narrowing, aneurysmal dilatation or vascular malformation of the [place] vessels. [facility]-[id number] Performing Organization Address City/State/Zipcode Phone Number [facility] [address] [place] [address] * MRI Brain Wo Contrast (04/08/2018 3:00 PM CENTRIFUGAL SEPARATOR) Specimen Narrative Performed At EXAMINATION:MRI BRAIN WO CONTRAST [facility] CLINICAL HISTORY:ICH COMPARISON:April 08, 2018 Findings: Given [...] without hydrocephalus. Findings suggestive of amyloid angiopathy. [facility]-[id number] Procedure Note Interface, Radiology Results Incoming - 04/08/2018 4:05 PM CENTRIFUGAL SEPARATOR EXAMINATION: MRI BRAIN WO CONTRAST CLINICAL HISTORY: [...] without hydrocephalus. Findings suggestive of amyloid angiopathy. [facility]-[id number] Performing Organization Address City/State/Zipcode Phone Number [facility] [address] [place] [address] * CT Head Wo Contrast (04/08/2018 9:16 AM CENTRIFUGAL SEPARATOR) Specimen Narrative Performed At EXAMINATION:CT HEAD WO CONTRAST [facility] CLINICAL HISTORY:follow-up ICH COMPARISON:Outside head CT 04/04/2018 [...] compared with 04/04/2018. Stable small intraventricular hemorrhage. [id number] Procedure Note Interface, Radiology Results Incoming - 04/08/2018 9:29 AM CENTRIFUGAL SEPARATOR EXAMINATION: CT HEAD WO CONTRAST CLINICAL HISTORY: [...] compared with 04/04/2018. Stable small intraventricular hemorrhage. [id number] Performing Organization Address City/State/[facility] Centercode Phone Number [employer] [address] [place] [address] * CT Head External Study (04/04/2018 5:37 PM CENTRIFUGAL SEPARATOR) Only the most recent of 2 results within the time period is included. Specimen Narrative Performed At This exam was not acquired at a [facility] facility and has not been [facility] interpreted by a [facility] Provider.The exam was imported into our imaging system for comparisons purposes. Performing Organization Address City/[facility]/Zipcode Phone Number [employer] [address] [place] [address] * MRI Head External Study (03/28/2018 2:05 PM CENTRIFUGAL SEPARATOR) Specimen Narrative Performed At This exam was not acquired at a [facility] facility and has not been [facility] interpreted by a [facility] Provider.The exam was imported into our imaging system for comparisons purposes. Performing Organization Address City/[facility] Centercode Phone Number [employer] [address] [place] [address] after 01/26/2018 Insurance Type Payer Benefit Subscriber ID Effective Phone Address Plan / Dates Group Medicare MEDICARE MEDICARE xxxxxxxxxxx 1998-P [place], PART A AND resent [place] Commercial [employer] xxxxxxxxxx 2008-P L LIFE [place] Advance Directives For more information, please contact: [phone] Patient Integration Engineer Explanation Type Date Recorded Advance Directives, Living Will and Medical Power of Public Address System Mechanic Date Inactivated Comments Code Status Date Activated 05/21/2018 8:56 PM Modified Code 04/09/2018 4:15 PM Modified Code restrictions: No Intubation No Chest Compressions No Electrical Shocks Code Status decision reached by: Legal Surrogate Name of Surrogate: ginny Reid Surrogate Relation: 2. Spouse
[2019-01-27] MEDS ORDERED: SODIUM CHLORIDE 0.9% 1000ML 1,000 ML IV STA ×2 (16:10→19:51)
[2019-01-27] MEDS ORDERED: LEVOFLOXACIN 750MG/D5W 150ML 150 ML IV STA (16:10)
--- NOTE | 2019-01-27 16:10 | NUR ---
DR. BALES AT BEDSIDE FOR CENTRAL LINE PLACEMENT AT THIS TIME.
--- NOTE | 2019-01-27 16:14 | NUR ---
RT FEMORAL CENTRAL LINE IN PLACE BY DR. BALES, PER PHYSICIAN LINE HAS POSITIVE BLOOD RETURN IN ALL THREE PORTS AND IS OKAY TO USE; SPECIMENS COLLECTED FOR LAB ANALYSIS PER ORDERS RECEIVED FROM DR. BALES.
--- NOTE | 2019-01-27 16:18 | NUR ---
CENTRAL LINE DRESSING PLACED USING ASEPTIC TECHNIQUE, PT TOLERATED WELL, SITE IS C/D/I, NO BLEEDING NOTED.
[2019-01-27 16:55] LABS: BASOPHILS % 0.1 % (0.0-1.0); HEMATOCRIT 39.7 % (38.2-49.6); HEMOGLOBIN 12.2 g/dL (14.0-18.0); LYMPHOCYTES # (AUTO) 7.5 (1.0-3.2); LYMPHOCYTES % 54.3 % (18.0-39.1); MEAN CORPUSCULAR HEMOGLOBIN 30.9 pg (28-32); MEAN CORPUSCULAR HGB CONC 30.7 g/dL (31-35); MEAN CORPUSCULAR VOLUME 100.5 fL (81-99); MONOCYTES # (AUTO) 0.4 (0.2-0.8); MONOCYTES % 3.1 % (4.4-11.3); NEUTROPHILS # (AUTO) 4.3 (2.1-6.9); NEUTROPHILS % 31.3 % (38.7-80.0); PLATELET COUNT 154 x10e3/uL (140-360); RED BLOOD COUNT 3.95 x10e6/uL (4.3-5.7); RED CELL DISTRIBUTION WIDTH 16.7 % (11.7-14.4)
[2019-01-27 16:58] LABS: INR 1.21; PROTHROMBIN TIME 15.9 seconds (11.9-14.5)
--- NOTE | 2019-01-27 17:02 | Diagnostic Imaging Report ---
A single frontal view of the chest. HISTORY: Fluid retention COMPARISON: Chest radiograph September 13, 2018 DISCUSSION: Portable technique, limits sensitivity of the exam. The right costophrenic angle is not included. Overlying monitoring leads and additional artifacts. Tubes/Lines: None Lungs and pleura: The lungs are well inflated. No evidence of a consolidative pneumonia or pulmonary alveolar edema. No definite pleural effusion or pneumothorax is identified. Heart and mediastinum: The cardiomediastinal silhouette appear(s) unremarkable. Bones and soft tissues: Appear unremarkable, given this limited exam. IMPRESSION: No acute radiographic abnormality. Signed by: Dr. Varinder Garcia D.O., M.M.M. on 01/27/2019 4:58 PM
[2019-01-27 17:09] LABS: ALBUMIN 2.4 g/dL (3.5-5.0); ALBUMIN/GLOBULIN RATIO 0.7 (0.8-2.0); ANION GAP 20.1 mmol/L (8-16); CALCIUM 8.8 mg/dL (8.4-10.2); CREATININE, SERUM 1.44 mg/dL (0.72-1.25); POTASSIUM 4.1 mmol/L (3.5-5.1)
[2019-01-27 17:17] LABS: CREATINE KINASE MB 5.2 ng/mL (0-5.0)
[2019-01-27] MEDS ORDERED: ENOXAPARIN SOD INJ 60 MG/0.6 ML SYR SC STA (17:21)
[2019-01-27 17:29] LABS: BILIRUBIN,URINE NEGATIVE (NEGATIVE); CLARITY,URINE CLEAR (CLEAR); COLOR,URINE YELLOW (YELLOW); KETONES,URINE NEGATIVE (NEGATIVE); LEUKOCYTE ESTERASE ,URINE SMALL (NEGATIVE); NITRITE,URINE NEGATIVE (NEGATIVE); PROTEIN,URINE DIPSTICK NEGATIVE (NEGATIVE); URINE UROBILINOGEN 0.2 mg/dL (0.2 - 1)
--- OUTSIDE RECORDS SUMMARY | 2019-01-27 17:55 | XMS REPORT | Clinical Summary ---
Author Author [facility] Address Unknown Phone Unavailable Care Team Providers Care Search Engine Marketing Specialist Name Role Phone Ernesto Leong MD PCP [...] neb 05/21/2018 Discontinued (Stop Taking at Discharge) [id number] Infuse 3.375 0 extrs (ZOSYN) 3.375 g [...] Bhardwaj, MD Aj Sánchez, German Virk MD [place] coma scale total score 9-12, unspecified coma [...] Comments Vital Sign 109/53 05/21/2018 4:07 PM DISH CLOTH INSPECTOR Blood Pressure 94 05/21/2018 4:07 PM DISH CLOTH INSPECTOR Pulse 36.7 C (98.1 F) 05/21/2018 4:07 PM DISH CLOTH INSPECTOR Temperature 16 05/21/2018 4:07 PM DISH CLOTH INSPECTOR Respiratory Rate 96% 05/21/2018 4:07 PM DISH CLOTH INSPECTOR Oxygen Saturation - - Inhaled Oxygen Concentration 70.5 kg (155 lb 8 oz) 04/10/2018 12:06 PM DISH CLOTH INSPECTOR Weight 180.3 cm (5' 11") 04/10/2018 12:06 PM DISH CLOTH INSPECTOR Height 21.69 04/10/2018 12:06 PM DISH CLOTH INSPECTOR Body Mass Index Plan of Treatment Health Maintenance Due Date Last Done Comments SHINGLES VACCINES (#1) 1983 65+ PNEUMOCOCCAL VACCINE 1998 (1 of 2 - PCV13) INFLUENZA VACCINE 11/29/2018 Implants Device Identifier Shelf Expiration Date Model / Serial / Lot Implanted Type Area 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 er [id number] / / Cook [employer] [place] Navalign Vascular N/A: N/A [employer] Uniset Vena Cava Filter - Filter PERIPHERAL [id number] INTERVENTI Implanted: 04/11/2018 at [facility] (Quantity not on file) Procedures Comments Procedure Name Priority Date/Time Associated Diagnosis HC COMPLETE BLD COUNT Routine 05/21/2018 W/AUTO DIFF 7:40 AM DISH CLOTH INSPECTOR CBC WITH PLATELET AND Routine 05/15/2018 DIFFERENTIAL 6:00 AM DISH CLOTH INSPECTOR ESTIMATED GFR Routine 05/15/2018 5:30 AM DISH CLOTH INSPECTOR BASIC METABOLIC PANEL Routine 05/15/2018 5:30 AM DISH CLOTH INSPECTOR HC COMPLETE BLD COUNT Routine 05/14/2018 W/AUTO DIFF 8:10 PM DISH CLOTH INSPECTOR XR CHEST 1 VW PORTABLE Routine 05/10/2018 12:55 PM DISH CLOTH INSPECTOR PREALBUMIN LEVEL Routine 05/09/2018 4:00 AM DISH CLOTH INSPECTOR C-REACTIVE PROTEIN Routine 05/09/2018 4:00 AM DISH CLOTH INSPECTOR SEDIMENTATION RATE Routine 05/09/2018 4:00 AM DISH CLOTH INSPECTOR HEMOGLOBIN & HEMATOCRIT Routine 05/09/2018 4:00 AM DISH CLOTH INSPECTOR PARTIAL THROMBOPLASTIN Routine 05/09/2018 TIME (PTT) 4:00 AM DISH CLOTH INSPECTOR ESTIMATED GFR Routine 05/08/2018 3:18 AM DISH CLOTH INSPECTOR HC COMPLETE BLD COUNT Routine 05/08/2018 W/AUTO DIFF 3:18 AM DISH CLOTH INSPECTOR BASIC METABOLIC PANEL Routine 05/08/2018 3:18 AM DISH CLOTH INSPECTOR POC GLUCOSE Routine 05/04/2018 9:14 PM DISH CLOTH INSPECTOR ESTIMATED GFR Routine 05/04/2018 6:20 AM DISH CLOTH INSPECTOR HC COMPLETE BLD COUNT Routine 05/04/2018 W/AUTO DIFF 6:20 AM DISH CLOTH INSPECTOR BASIC METABOLIC PANEL Routine 05/04/2018 6:20 AM DISH CLOTH INSPECTOR CONSULT TO OSTOMY CARE Routine 05/01/2018 NURSE 7:00 PM DISH CLOTH INSPECTOR ESTIMATED GFR Routine 04/30/2018 5:05 AM DISH CLOTH INSPECTOR MAGNESIUM LEVEL Routine 04/30/2018 5:05 AM DISH CLOTH INSPECTOR HC COMPLETE BLD COUNT Routine 04/30/2018 W/AUTO DIFF 5:05 AM DISH CLOTH INSPECTOR BASIC METABOLIC PANEL Routine 04/30/2018 5:05 AM DISH CLOTH INSPECTOR CLOSTRIDIUM DIFFICILE Routine 04/28/2018 TOXIN 5:50 PM DISH CLOTH INSPECTOR XR CHEST 1 VW PORTABLE Routine 04/25/2018 3:55 PM DISH CLOTH INSPECTOR HC COMPLETE BLD COUNT Routine 04/23/2018 W/AUTO DIFF 5:35 AM DISH CLOTH INSPECTOR ESTIMATED GFR Routine 04/23/2018 4:00 AM DISH CLOTH INSPECTOR PHOSPHORUS LEVEL Routine 04/23/2018 4:00 AM DISH CLOTH INSPECTOR MAGNESIUM LEVEL Routine 04/23/2018 4:00 AM DISH CLOTH INSPECTOR BASIC METABOLIC PANEL Routine 04/23/2018 4:00 AM DISH CLOTH INSPECTOR HC COMPLETE BLD COUNT Routine 04/21/2018 W/AUTO DIFF 4:35 AM DISH CLOTH INSPECTOR ESTIMATED GFR Routine 04/21/2018 4:00 AM DISH CLOTH INSPECTOR PHOSPHORUS LEVEL Routine 04/21/2018 4:00 AM DISH CLOTH INSPECTOR MAGNESIUM LEVEL Routine 04/21/2018 4:00 AM DISH CLOTH INSPECTOR BASIC METABOLIC PANEL Routine 04/21/2018 4:00 AM DISH CLOTH INSPECTOR POC GLUCOSE Routine 04/20/2018 1:31 AM DISH CLOTH INSPECTOR ESTIMATED GFR Routine 04/19/2018 5:50 AM DISH CLOTH INSPECTOR MAGNESIUM LEVEL Routine 04/19/2018 5:50 AM DISH CLOTH INSPECTOR BASIC METABOLIC PANEL Routine 04/19/2018 5:50 AM DISH CLOTH INSPECTOR HC COMPLETE BLD COUNT Routine 04/19/2018 W/AUTO DIFF 5:50 AM DISH CLOTH INSPECTOR XR CHEST 1 VW PORTABLE Routine 04/18/2018 10:27 AM DISH CLOTH INSPECTOR ESTIMATED GFR Routine 04/18/2018 4:55 AM DISH CLOTH INSPECTOR VANCOMYCIN LEVEL, RANDOM Routine 04/18/2018 4:55 AM DISH CLOTH INSPECTOR MAGNESIUM LEVEL Routine 04/18/2018 4:55 AM DISH CLOTH INSPECTOR BASIC METABOLIC PANEL Routine 04/18/2018 4:55 AM DISH CLOTH INSPECTOR HC COMPLETE BLD COUNT Routine 04/18/2018 W/AUTO DIFF 4:55 AM DISH CLOTH INSPECTOR POC GLUCOSE Routine 04/17/2018 3:40 PM DISH CLOTH INSPECTOR POC GLUCOSE Routine 04/17/2018 12:19 PM DISH CLOTH INSPECTOR POC GLUCOSE Routine 04/17/2018 7:28 AM DISH CLOTH INSPECTOR RESPIRATORY PATHOGEN Routine 04/17/2018 PANEL 6:55 AM DISH CLOTH INSPECTOR ESTIMATED GFR Routine 04/17/2018 4:00 AM DISH CLOTH INSPECTOR PHOSPHORUS LEVEL Routine 04/17/2018 4:00 AM DISH CLOTH INSPECTOR MAGNESIUM LEVEL Routine 04/17/2018 4:00 AM DISH CLOTH INSPECTOR BASIC METABOLIC PANEL Routine 04/17/2018 4:00 AM DISH CLOTH INSPECTOR ESTIMATED GFR Routine 04/17/2018 12:00 AM DISH CLOTH INSPECTOR B NATRIURETIC PEPTIDE Routine 04/17/2018 12:00 AM DISH CLOTH INSPECTOR HC COMPLETE BLD COUNT Routine 04/17/2018 W/AUTO DIFF 12:00 AM DISH CLOTH INSPECTOR MAGNESIUM LEVEL Routine 04/17/2018 12:00 AM DISH CLOTH INSPECTOR BASIC METABOLIC PANEL Routine 04/17/2018 12:00 AM DISH CLOTH INSPECTOR URINALYSIS SCREEN AND Routine 04/17/2018 MICROSCOPY, WITH REFLEX 12:00 AM DISH CLOTH INSPECTOR TO CULTURE URINE CULTURE Routine 04/17/2018 12:00 AM DISH CLOTH INSPECTOR BLOOD CULTURE, AEROBIC & Routine 04/16/2018 ANAEROBIC 6:15 PM DISH CLOTH INSPECTOR BLOOD CULTURE, AEROBIC & Routine 04/16/2018 ANAEROBIC 6:15 PM DISH CLOTH INSPECTOR HC COMPLETE BLD COUNT Routine 04/16/2018 W/AUTO DIFF 5:10 PM DISH CLOTH INSPECTOR POC GLUCOSE Routine 04/16/2018 3:30 PM DISH CLOTH INSPECTOR XR CHEST 1 VW PORTABLE Routine 04/16/2018 2:37 PM DISH CLOTH INSPECTOR ESTIMATED GFR Routine 04/16/2018 4:00 AM DISH CLOTH INSPECTOR BASIC METABOLIC PANEL Routine 04/16/2018 4:00 AM DISH CLOTH INSPECTOR IONIZED CALCIUM STAT 04/14/2018 8:35 AM DISH CLOTH INSPECTOR MAGNESIUM LEVEL STAT 04/14/2018 8:35 AM DISH CLOTH INSPECTOR POTASSIUM LEVEL STAT 04/14/2018 8:35 AM DISH CLOTH INSPECTOR XR CERVICAL SPINE 1 VW STAT 04/13/2018 10:08 PM DISH CLOTH INSPECTOR POC GLUCOSE Routine 04/13/2018 8:27 AM DISH CLOTH INSPECTOR ESTIMATED GFR Routine 04/13/2018 5:45 AM DISH CLOTH INSPECTOR MAGNESIUM LEVEL Routine 04/13/2018 5:45 AM DISH CLOTH INSPECTOR BASIC METABOLIC PANEL Routine 04/13/2018 5:45 AM DISH CLOTH INSPECTOR HC COMPLETE BLD COUNT Routine 04/13/2018 W/AUTO DIFF 5:45 AM DISH CLOTH INSPECTOR URINALYSIS SCREEN AND Routine 04/12/2018 MICROSCOPY, WITH REFLEX 8:00 PM DISH CLOTH INSPECTOR TO CULTURE URINE CULTURE Routine 04/12/2018 8:00 PM DISH CLOTH INSPECTOR FL MODIFIED BARIUM Routine 04/12/2018 SWALLOW 4:02 PM DISH CLOTH INSPECTOR US DUPLEX VENOUS UPPER Routine 04/12/2018 EXTREMITY LEFT 9:40 AM DISH CLOTH INSPECTOR HC COMPLETE BLD COUNT Routine 04/12/2018 W/AUTO DIFF 4:20 AM DISH CLOTH INSPECTOR PARTIAL THROMBOPLASTIN Routine 04/12/2018 TIME (PTT) 4:20 AM DISH CLOTH INSPECTOR PROTHROMBIN TIME WITH INR Routine 04/12/2018 4:20 AM DISH CLOTH INSPECTOR ESTIMATED GFR Routine 04/12/2018 4:00 AM DISH CLOTH INSPECTOR MAGNESIUM LEVEL Routine 04/12/2018 4:00 AM DISH CLOTH INSPECTOR BASIC METABOLIC PANEL Routine 04/12/2018 4:00 AM DISH CLOTH INSPECTOR IR IVC FILTER PLACEMENT Routine 04/11/2018 4:18 PM DISH CLOTH INSPECTOR B NATRIURETIC PEPTIDE Routine 04/11/2018 5:45 AM DISH CLOTH INSPECTOR HC COMPLETE BLD COUNT Routine 04/11/2018 W/AUTO DIFF 5:45 AM DISH CLOTH INSPECTOR PARTIAL THROMBOPLASTIN Routine 04/11/2018 TIME (PTT) 5:45 AM DISH CLOTH INSPECTOR PROTHROMBIN TIME WITH INR Routine 04/11/2018 5:45 AM DISH CLOTH INSPECTOR ESTIMATED GFR Routine 04/11/2018 4:00 AM DISH CLOTH INSPECTOR PHOSPHORUS LEVEL Routine 04/11/2018 4:00 AM DISH CLOTH INSPECTOR MAGNESIUM LEVEL Routine 04/11/2018 4:00 AM DISH CLOTH INSPECTOR BASIC METABOLIC PANEL Routine 04/11/2018 4:00 AM DISH CLOTH INSPECTOR MANUAL DIFFERENTIAL Routine 04/10/2018 4:37 AM DISH CLOTH INSPECTOR ESTIMATED GFR Routine 04/10/2018 4:37 AM DISH CLOTH INSPECTOR PARTIAL THROMBOPLASTIN Routine 04/10/2018 TIME (PTT) 4:37 AM DISH CLOTH INSPECTOR PROTHROMBIN TIME WITH INR Routine 04/10/2018 4:37 AM DISH CLOTH INSPECTOR PHOSPHORUS LEVEL Routine 04/10/2018 4:37 AM DISH CLOTH INSPECTOR MAGNESIUM LEVEL Routine 04/10/2018 4:37 AM DISH CLOTH INSPECTOR B NATRIURETIC PEPTIDE Routine 04/10/2018 4:37 AM DISH CLOTH INSPECTOR BASIC METABOLIC PANEL Routine 04/10/2018 4:37 AM DISH CLOTH INSPECTOR CBC WITH PLATELET AND Routine 04/10/2018 DIFFERENTIAL 4:37 AM DISH CLOTH INSPECTOR FIBRINOGEN Routine 04/10/2018 4:37 AM DISH CLOTH INSPECTOR D-DIMER Routine 04/10/2018 4:37 AM DISH CLOTH INSPECTOR FL MODIFIED BARIUM Routine 04/09/2018 SWALLOW 11:07 AM DISH CLOTH INSPECTOR URINALYSIS SCREEN AND Routine 04/09/2018 MICROSCOPY, WITH REFLEX 10:00 AM DISH CLOTH INSPECTOR TO CULTURE GRAM STAIN Routine 04/09/2018 10:00 AM DISH CLOTH INSPECTOR URINE CULTURE Routine 04/09/2018 10:00 AM DISH CLOTH INSPECTOR US DUPLEX VENOUS LOWER Routine 04/08/2018 EXTREMITY BILATERAL 5:52 PM DISH CLOTH INSPECTOR MRA NECK WO CONTRAST Routine 04/08/2018 3:30 PM DISH CLOTH INSPECTOR MRA HEAD WO CONTRAST Routine 04/08/2018 3:12 PM DISH CLOTH INSPECTOR MRI BRAIN WO CONTRAST Routine 04/08/2018 3:00 PM [address]ISH CLOTH [address] HEAD WO CONTRAST STAT 04/08/2018 9:16 AM DISH CLOTH INSPECTOR XR CHEST 1 VW PORTABLE Routine 04/08/2018 6:06 AM DISH CLOTH INSPECTOR HC COMPLETE BLD COUNT Routine 04/08/2018 W/AUTO DIFF 3:01 AM DISH CLOTH INSPECTOR ESTIMATED GFR Routine 04/08/2018 12:02 AM DISH CLOTH INSPECTOR PROTHROMBIN TIME WITH INR Routine 04/08/2018 12:02 AM DISH CLOTH INSPECTOR PARTIAL THROMBOPLASTIN Routine 04/08/2018 TIME (PTT) 12:02 AM DISH CLOTH INSPECTOR CBC WITH PLATELET AND Routine 04/08/2018 DIFFERENTIAL 12:02 AM DISH CLOTH INSPECTOR BASIC METABOLIC PANEL Routine 04/08/2018 12:02 AM DISH CLOTH [address] HEAD EXTERNAL STUDY Routine 04/04/2018 5:37 PM DISH CLOTH INSPECTOR MRI HEAD EXTERNAL STUDY Routine 03/28/2018 2:05 PM DISH CLOTH [address] HEAD EXTERNAL STUDY Routine 03/25/2018 10:54 AM DISH CLOTH INSPECTOR after 01/26/2018 Results * CBC with platelet and differential (05/21/2018 7:40 AM DISH CLOTH INSPECTOR) Only the most recent of 18 results within the time period is included. WBC 3.59 (L) 4.50 - 11.00 k/uL [facility] RBC 3.35 (L) 4.40 - 6.00 m/uL [facility] HGB 11.1 (L) 14.0 - 18.0 g/dL [facility] HCT 34.5 (L) 41.0 - 51.0 % [facility] MCV 103.0 (H) 82.0 - 100.0 fL [facility] MCH 33.1 27.0 - 34.0 pg [facility] MCHC 32.2 31.0 - 37.0 g/dL [facility] RDW - SD 60.1 (H) 37.0 - 55.0 fL [facility] MPV 10.4 8.8 - 13.2 fL [facility] Platelet count 109 (L) 150 - 400 k/uL [facility] Nucleated RBC 0.00 /100 WBC [facility] Neutrophils 64.1 39.0 - 69.0 % [facility] Lymphocytes 23.4 (L) 25.0 - 45.0 % [facility] Monocytes 6.1 0.0 - 10.0 % [facility] Eosinophils 2.8 0.0 - 5.0 % [facility] Basophils 1.1 (H) 0.0 - 1.0 % [facility] Immature 2.5 (H)Comment: "Immature 0.0 - 1.0 % [place] granulocytes granulocytes" (promyelocytes, SCIENTOLOGY myelocytes, metamyelocytes) HOSPITAL Specimen Blood Performing Organization Address City/[facility] Phone Number [facility] [place] [address] PATHOLOGY AND GENOMIC MEDICINE [address] * Estimated GFR (05/15/2018 5:30 AM DISH CLOTH INSPECTOR) Only the most recent of 16 results within the time period is included. Pathologist [facility] Estimated GFR >=90 mL/min/1.73 m2 [place] Comment: [facility] rpretation G1 >=90 Normal or high G2 60-89Mildly decreased [id number] Mildly to moderately decreased [id number] Moderately to severely decreased G4 15-29Severely decreased G5 <15Kidney failure The eGFR was calculated using the Chronic Kidney Disease Epidemiology Collaboration (CKD-EPI) equation. Interpretation is based on recommendations of the National Kidney Foundation-Kidney Disease Outcomes Quality Initiative (NKF-KDOQI) published in 2014. Specimen Plasma specimen Performing Organization Address City/[facility] [place] [address] PATHOLOGY AND GENOMIC MEDICINE [address] * Basic metabolic panel (05/15/2018 5:30 AM DISH CLOTH INSPECTOR) Only the most recent of 16 results within the time period is included. Sodium 133 (L) 135 - 148 mEq/L [facility] Potassium 3.9 3.5 - 5.0 mEq/L [facility] Chloride 100 98 - 112 mEq/L [facility] CO2 23 (L) 24 - 31 mEq/L [facility] Anion gap 10@ANIO 7 - 15 mEq/L [facility] BUN 11 8 - 23 mg/dL [facility] Creatinine 0.51 (L) 0.70 - 1.20 mg/dL [facility] Glucose 100 (H) 65 - 99 mg/dL [facility] Calcium 9.2 8.8 - 10.2 mg/dL [facility] Specimen Plasma specimen Performing Organization Address City/[facility]code Phone Number [facility] DEPARTMENT [address] [address] PATHOLOGY AND GENOMIC MEDICINE [address] * XR Chest 1 Vw Portable (05/10/2018 12:55 PM DISH CLOTH INSPECTOR) Only the most recent of 5 results within the time period is included. Specimen Narrative Performed At EXAMINATION:XR CHEST 1 [facility] CL[facility]:Shortness of breath COMPARISON:Most Recent Prior at [facility] IMPRESSION: Heart is normal in size. No focal infiltrates. Minimal basilar scarring or atelectasis. No pneumothorax or effusion. Diffuse osteopenia. [facility]-[id number] Procedure Note Interface, Radiology Results Incoming - 05/10/2018 1:08 PM DISH CLOTH INSPECTOR EXAMINATION: XR CHEST 1 VW PORTABLE CLINICAL HISTORY: Shortness of breath COMPARISON: Most Recent Prior at [facility] IMPRESSION: Heart is normal in size. No focal infiltrates. Minimal basilar scarring or atelectasis. No pneumothorax or effusion. Diffuse osteopenia. [facility]-[id number] Performing Organization Address City/[facility]/Zipcode Phone Number [facility] [address] [place] [phone] * Hemoglobin & hematocrit (05/09/2018 4:00 AM DISH CLOTH INSPECTOR) HGB 11.1 (L) 14.0 - 18.0 g/dL [facility] HCT 33.9 (L) 41.0 - 51.0 % [facility] Specimen Blood Performing Organization Address City/State/Zipcode Phone Number [facility] DEPARTMENT OF [address] [place] [id number] PATHOLOGY AND GENOMIC MEDICINE [address] * Partial thromboplastin time, activated (05/09/2018 4:00 AM DISH CLOTH INSPECTOR) Only the most recent of 5 results within the time period is included. [facility] PTT 28.6 23.0 - 36.0 sec [place] Comment: [facility] PTT therapeutic range for HOSPITAL unfractionated heparin is 61.0-112.0 seconds which corresponds to Anti-Xa 0.3-0.7 U/ml. Specimen Blood Performing Organization Address City/[facility] Phone Number [facility] DEPARTMENT [address] * Sedimentation rate (05/09/2018 4:00 AM DISH CLOTH INSPECTOR) [facility] Sedimentation 12 (H) 0 - 10 mm/hr [facility] Specimen Blood Performing Organization Address [facility]code Phone Number [facility] [place] [address] [address] * C-reactive protein (05/09/2018 4:00 AM DISH CLOTH INSPECTOR) [facility] CRP 0.76 (H) 0.00 - 0.50 mg/dL [facility] Specimen Plasma specimen Performing Organization Address [facility]code Phone Number [facility] [place] [address] PATH[address] * Prealbumin level (05/09/2018 4:00 AM DISH CLOTH INSPECTOR) [facility] Prealbumin 15 (L) 16 - 32 mg/dL [facility] Specimen Serum Performing Organization Address [facility] Phone Number [facility] DEPARTMENT [address] AND [facility] MEDICINE [address] * POC glucose (05/04/2018 9:14 PM DISH CLOTH INSPECTOR) Only the most recent of 7 results within the time period is included. [facility] POC glucose 108 (H) 65 - 99 mg/dL [place] Comment: SCIENTOLOGY [facility] Notified RN HOSPITAL Meter ID: [id number] Wellness Trainer: Nwangwu Jose Raul B Specimen Performing Organization Address City/[facility]code Phone Number [facility] [place] [address] PATHOLOGY AND [facility] MEDICINE [address] * Magnesium level (04/30/2018 5:05 AM DISH CLOTH INSPECTOR) Only the most recent of 12 results within the time period is included. Magnesium 1.9 1.6 - 2.4 mg/dL [facility] Specimen Plasma specimen Performing Organization Address [facility] Phone Number [facility] [place] [address] PATHOLOGY AND [facility] MEDICINE [address] * C difficile toxin (04/28/2018 5:50 PM DISH CLOTH INSPECTOR) Pathologist [facility] Clostridium No Clostridium difficle toxin [place] difficile toxin present SCIENT[facility]Y Comment: HOSPITAL Specimen Information Specimen Source: Stool Specimen Site: Not otherwise specified Specimen Stool - Not otherwise specified Performing Organization Address [facility] Phone Number [facility] [place] [address] PATHOLOGY AND [facility] MEDICINE [address] * Phosphorus level (04/23/2018 4:00 AM DISH CLOTH INSPECTOR) Only the most recent of 5 results within the time period is included. Pathologist [facility] Phosphorus 2.9 2.4 - 4.5 mg/dL [facility] Specimen Plasma specimen Performing Organization Address [facility] Phone Number [facility] [place] [address] PATHOLOGY AND GENOMIC MEDICINE [address] * Vancomycin level, random (04/18/2018 4:55 AM DISH CLOTH INSPECTOR) Pathologist [facility] Vancomycin, 12.0 ug/mL [facility] Specimen Serum Performing Organization Address [facility] Phone Number [facility] [place] [address] PATHOLOGY AND GENOMIC MEDICINE [address] * Respiratory pathogen panel (04/17/2018 6:55 AM DISH CLOTH INSPECTOR) Pathologist [facility] Respiratory Negative for all pathogens [place] pathogen panel tested: SCIENTOLOGY Negative for Adenovirus HOSPITAL Negative for Coronavirus [...] specified Performing Organization Address City/State/Zipcode Phone Number [facility] DEPARTMENT OF [address] [place] [address] PATHOLOGY AND GENOMIC MEDICINE [address] * Urinalysis screen and microscopy, with reflex to culture (04/17/2018 12:00 AM DISH CLOTH INSPECTOR) Only the most recent of 3 results within the time period is included. Specimen site Clean catch [facility] Color, UA Yellow [facility] Appearance, UA Clear [facility] Specific 1.013 1.001 - 1.035 [place] gravity, [facility] pH, UA 6.0 5.0 - 8.5 [facility] Protein, UA Negative Negative [facility] Glucose, UA Negative Negative [facility] Ketones, UA Negative Negative [facility] Bilirubin, UA Negative Negative [facility] Blood, UA Negative Negative [facility] Nitrite, UA Negative Negative [facility] Urobilinogen, 4.0 (A) <2.0 [facility] Leukocyte Negative Negative [place] esterase, [facility] Epithelial 1 /HPF [place] cells, [facility] WBC, UA 3 (H) 0 - 1 /HPF [facility] RBC, UA 2 0 - 5 /HPF [facility] Bacteria, UA None seen None seen [facility] Yeast, UA Few (A) [facility] Yeast with None seen [place] [facility] Specimen Urine Performing Organization Address City/[facility]/Zipcode Phone Number [facility] DEPARTMENT OF [address] [place] [address] PATHOLOGY AND GENOMIC MEDICINE [address] * Urine culture (04/17/2018 12:00 AM DISH CLOTH INSPECTOR) Only the most recent of 3 results within the time period is included. Urine culture SEE COMMENTComment: [place] Bacteriuria screen negative. [facility] Specimen Performing Organization Address City/[facility] Phone Number [facility] [place] [address] PATHOLOGY AND GENOMIC MEDICINE [address] * B natriuretic peptide (04/17/2018 12:00 AM DISH CLOTH INSPECTOR) Only the most recent of 3 results within the time period is included. BNP 243 (H) 0 - 100 pg/mL [facility] Specimen Blood Performing Organization Address [facility]code Phone Number [facility] DEPARTMENT OF [address] [place] [address] PATHOLOGY AND GENOMIC MEDICINE [address] * Blood culture, aerobic & anaerobic (04/16/2018 6:15 PM DISH CLOTH INSPECTOR) Only the most recent of 2 results within the time period is included. Blood culture No growth after 5 days of [place] isolate incubation. SCIENT[facility] Comment: HOSPITAL Specimen Information Specimen Source: Blood Specimen Site: Antecubital, right Specimen Blood - Antecubital, right Performing Organization Address City/[facility] Phone Number [facility] DEPARTMENT OF [address] [place] [address] PATHOLOGY AND GENOMIC MEDICINE [address] * Potassium level (04/14/2018 8:35 AM DISH CLOTH INSPECTOR) Potassium 4.7 3.5 - 5.0 mEq/L [facility] Specimen Plasma specimen Performing Organization Address City/[facility]/Zipcode Phone Number [facility] [place] [address] PATHOLOGY AND GENOMIC MEDICINE [address] [address] * Ionized calcium (04/14/2018 8:35 AM DISH CLOTH INSPECTOR) pH 7.48 [facility] Ionized calcium 0.98 (L) 1.11 - 1.32 mmol/L [facility] Specimen Plasma specimen Performing Organization Address [facility] Hospitalcode Phone Number [facility] DEPARTMENT OF [address] [place] [address] PATHOLOGY AND GENOMIC MEDICINE [facility] [address] [place] [address] HOSPITAL * XR Cervical Spine 1 Vw (04/13/2018 10:08 PM DISH CLOTH INSPECTOR) Specimen Narrative Performed At EXAMINATION:XR CERVICAL SPINE 1 VW HM [facility] CLINICAL HISTORY: Neck paininitial exam COMPARISON: None. FINDINGS: A single frontal view of the cervical spine obtained. Multilevel degenerative changes. No obvious fracture. IMPRESSION: Single frontal view demonstrating multilevel degenerative change. No obvious fracture. [facility]-[id number] Procedure Note Interface, Radiology Results Incoming - 04/13/2018 10:18 PM DISH CLOTH INSPECTOR EXAMINATION: XR CERVICAL SPINE 1 VW CLINICAL HISTORY: Neck pain initial exam COMPARISON: None. FINDINGS: A single frontal view of the cervical spine obtained. Multilevel degenerative changes. No obvious fracture. IMPRESSION: Single frontal view demonstrating multilevel degenerative change. No obvious fracture. [facility]-[id number] Performing Organization Address [facility] Hospitalcode Phone Number [facility] [address] [place] [address] * [place] Modified Barium Swallow (04/12/2018 4:02 PM DISH CLOTH INSPECTOR) Only the most recent of 2 results [...] for further details. [facility]-[id number] Procedure Note Interface, Radiology Results Incoming - 04/12/2018 6:03 PM DISH CLOTH INSPECTOR EXAMINATION: FL MODIFIED BARIUM SWALLOW CLINICAL HISTORY: [...] for further details. [facility]-[id number] Performing Organization Address City/State/Zipcode Phone Number [facility] [address] [facility] [place] [address] * Us duplex venous upper extremity (04/12/2018 9:40 AM DISH CLOTH INSPECTOR) Specimen Narrative Performed At [facility] Vascular Ultrasound Laboratory Upper Extremity Venous Report [id number] [address], [place] [address] Pat.Name:LORI REID Pat.ID:[id number] .Date: 04/12/2018Refer.MD:YTREE CABRERA MD Exam Time: 9:25:00 AMStudy Type:UE Venous DOBAge:1935,82Y Sex: MALE Sonogrphr: Pranay Beavers RDMS, RVTPat. Stat.:Inpatient Room:[place] [address] TapeVol: , CPT - 4: 08930 Echo Event ID:[id number] Order ID:[id number] Reason for Study:Left upper extremity redness of [...] Radiology Results In - 04/12/2018 11:22 AM [facility] Vascular Ultrasound Laboratory Upper Extremity Venous Report [id number] [address] Pat.Name: LORI REID Pat.ID: [id number] .Date: 04/12/2018 Refer.MD: TYREE CABRERA MD Exam Time: 9:25:00 AM Study Type:UE Venous Age: 2 1935,82Y Sex: MALE Sonogrphr: Pranay Beavers RDMS, RIGOT Pat. Stat.:Inpatient Room: [place] [address] Tape Vol: , CPT - 4: 50299 Echo Event ID:[id number] Order ID: [id number] Reason for Study:Left upper extremity redness of [...] RPVI Performing Organization Address City/State/Zipcode Phone Number [facility] [address] [place] [address] * Prothrombin time with INR (04/12/2018 4:20 AM DISH CLOTH INSPECTOR) Only the most recent of 4 results within the time period is included. Prothrombin 15.8 (H) 11.5 - 14.5 sec [facility] INR 1.3 [place] Comment: SCIENTOLOGY The International Normalized HOSPITAL Ratio (INR) is a therapeutic monitoring tool for patients who are stable on oral anticoagulant therapy. An INR of 2.0-3.0 is suggested for deep vein thrombosis/pulmonary embolism. Specimen Blood Performing Organization Address [facility]/Zipcode Phone Number [facility] DEPARTMENT OF [address] [place] [address] PATHOLOGY AND GENOMIC MEDICINE [address] * IR IVC Filter Placement (04/11/2018 4:18 PM DISH CLOTH INSPECTOR) Specimen Narrative Performed At Procedure [facility] 1. [...] The micropuncture sheath was removed and a 5-Singaporean pigtail catheter was then placed over the [...] inferior vena cava. [facility]-[id number] Procedure Note [facility], Radiology Results Incoming - 04/11/2018 5:42 PM DISH CLOTH INSPECTOR Procedure 1. Inferior vena cavogram 2. Placement [...] The micropuncture sheath was removed and a 5-Singaporean pigtail catheter was then placed over the [...] inferior vena cava. [facility]-[id number] Performing Organization Address City/[facility] Hospitalcode Phone Number [facility] [address] [place] [address] * Manual differential (04/10/2018 4:37 AM DISH CLOTH INSPECTOR) Pathologist [facility] Manual PERFORMED [place] differential [facility] Neutrophils 74.0 (H) 39.0 - 69.0 % [facility] Lymphocytes 25.0 25.0 - 45.0 % [facility] Monocytes 1.0 0.0 - 10.0 % [facility] Eosinophils 0.0 0.0 - 5.0 % [facility] Basophils 0.0 0.0 - 1.0 % [facility] Metamyelocytes 0 % [facility] Promyelocytes 0 % [facility] Platelet slide Decreased (A) [facility] Anisocytosis Moderate [facility] Polychromasia Moderate [facility] Ovalocytes Moderate [facility] Specimen Performing Organization Address [facility] Phone Number [facility] [place] [address] PATHOLOGY AND GENOMIC MEDICINE [address] * Fibrinogen (04/10/2018 4:37 AM DISH CLOTH INSPECTOR) [facility] Fibrinogen 313 200 - 450 mg/dL [facility] Specimen Blood Performing Organization Address [facility] Hospitalcony Phone Number [facility] [place] [address] PATHOLOGY AND GENOMIC MEDICINE [address] * D-dimer (04/10/2018 4:37 AM DISH CLOTH INSPECTOR) [facility] D-dimer 14.49 (H) 0.00 - 0.40 ug/mL [place] Comment: FEU SCIENTOLOGY Units are ug/ml Fibrinogen HOSPITAL Equivalent Unit. [...] and malignancies. Specimen Blood Performing Organization Address [facility]cony Phone Number [facility] DEPARTMENT OF [address] [place] [address] PATHOLOGY AND GENOMIC MEDICINE [address] * Gram stain (04/09/2018 10:00 AM DISH CLOTH INSPECTOR) Gram stain No WBC's or organisms seen. [place] result Comment: SCIENTOLOGY Specimen Information HOSPITAL Specimen Source: Urine Specimen Site: [place] Specimen Urine - [place] Performing Organization Address [facility]y Phone Number [facility] DEPARTMENT OF [address] [place] [address] PATHOLOGY AND GENOMIC MEDICINE [address] * Us duplex venous lower extremity (04/08/2018 5:52 PM DISH CLOTH INSPECTOR) Specimen Narrative Performed At [facility] Vascular Ultrasound Laboratory Lower Extremity Venous Report [address] [place] [address] Pat.Name:LORI REID Pat.ID:[id number] .Date: 04/08/2018 Refer.MD:TYREE CABRERA MD Exam Time: 5:18:00 PMStudy Type:LE Venous DOBAge:1935,82Y Sex: MALE Sonogrphr: Howard Almeida RVT Pat. Stat.:Inpatient Room:[id number]: [place], CPT - 4: 13605 Echo Event ID:[id number] Order ID:[id number] Reason for Study:Leg edema and immobility Procedures:Colorflow, [...] Radiology Results In - 04/08/2018 9:53 PM [facility] Vascular Ultrasound Laboratory Lower Extremity Venous Report [address] [place] [address] Pat.Name: LORI REID Pat.ID: [id number] .Date: 04/08/2018 Refer.MD: TYREE CABRERA MD Exam Time: 5:18:00 PM Study Type:LE Venous Age: 2 1935,82Y Sex: MALE Sonogrphr: Howard Almeida RVT Pat. Stat.:Inpatient Room: [id number] Tape Vol: VB, CPT - 4: 17786 Echo Event ID:[id number] Order ID: [id number] Reason for Study:Leg edema and immobility Procedures:Colorflow, [...] Baldomero Urena MD, RPVI Performing Organization Address City/[facility]/Zipcode Phone Number [facility] [address] [place] [address] * MRA Neck Wo Contrast (04/08/2018 3:30 PM DISH CLOTH INSPECTOR) Specimen Narrative Performed At EXAMINATION:MRA NECK WO CONTRAST [facility] CLINICAL HISTORY:previous ICH COMPARISON:None. IMPRESSION: 3-D reconstructions are processed off-line. No narrowing by NASCET criteria of the cervical internal carotid arteries. No hemodynamically significant narrowing of the distal common carotid arteries or visualized extracranial vertebral arteries. [facility]-[id number] Procedure Note Interface, Radiology Results Incoming - 04/08/2018 4:01 PM DISH CLOTH INSPECTOR EXAMINATION: MRA NECK WO CONTRAST CLINICAL HISTORY: previous ICH COMPARISON: None. IMPRESSION: 3-D reconstructions are processed off-line. No narrowing by NASCET criteria of the cervical internal carotid arteries. No hemodynamically significant narrowing of the distal common carotid arteries or visualized extracranial vertebral arteries. [facility]-[id number] Performing Organization Address City/[facility] Phone Number [facility] [address] [place] [address] * MRA Head Wo Contrast (04/08/2018 3:12 PM DISH CLOTH INSPECTOR) Specimen Narrative Performed At [facility] EXAMINATION:MRA HEAD WO CONTRAST CLINICAL HISTORY:previous ICH COMPARISON:None. IMPRESSION: 3-D reconstructions were processed off-line. Large right cerebral hemisphere parenchymal hematoma displaces the right MCA branches without evidence of significant narrowing. No focal narrowing, aneurysmal dilatation or vascular malformation of the [place] vessels. [facility]-[id number] Procedure Note Interface, Radiology Results Incoming - 04/08/2018 4:06 PM DISH CLOTH INSPECTOR EXAMINATION: MRA HEAD WO CONTRAST CLINICAL HISTORY: previous ICH COMPARISON: None. IMPRESSION: 3-D reconstructions were processed off-line. Large right cerebral hemisphere parenchymal hematoma displaces the right MCA branches without evidence of significant narrowing. No focal narrowing, aneurysmal dilatation or vascular malformation of the [place] vessels. [facility]-[id number] Performing Organization Address City/State/Zipcode Phone Number [facility] [address] [place] [address] * MRI Brain Wo Contrast (04/08/2018 3:00 PM DISH CLOTH INSPECTOR) Specimen Narrative Performed At EXAMINATION:MRI BRAIN WO CONTRAST [facility]ICAL [facility]:ICH COMPARISON:April 08, 2018 Findings: [...] of amyloid angiopathy. [facility]-[id number] Procedure Note Interface, Radiology Results Incoming - 04/08/2018 4:05 PM DISH CLOTH INSPECTOR EXAMINATION: MRI BRAIN WO CONTRAST CLINICAL HISTORY: [...] of amyloid angiopathy. [facility]-[id number] Performing Organization Address City/State/Zipcode Phone Number [facility] [address] [place] [address] * CT Head Wo Contrast (04/08/2018 9:16 AM DISH CLOTH INSPECTOR) Specimen Narrative Performed At EXAMINATION:CT HEAD WO CONTRAST [facility] CLINICAL [facility]:follow-up ICH COMPARISON:Outside head CT [...] compared with 04/04/2018. Stable small intraventricular hemorrhage. [id number] Procedure Note Interface, Radiology Results Incoming - 04/08/2018 9:29 AM DISH CLOTH INSPECTOR EXAMINATION: CT HEAD WO CONTRAST CLINICAL HISTORY: [...] compared with 04/04/2018. Stable small intraventricular hemorrhage. [id number] Performing Organization Address City/State/[facility]code Phone Number [facility] [address] [place] [address] * CT Head External Study (04/04/2018 5:37 PM DISH CLOTH INSPECTOR) Only the most recent of 2 results within the time period is included. Specimen Narrative Performed At This exam was not acquired at a [facility] facility and has not been [facility] interpreted by a [facility] Provider.The exam was imported into our imaging system for comparisons purposes. Performing Organization Address City/[facility]/Zipcode Phone Number [facility] [address] [place] [address] * MRI Head External Study (03/28/2018 2:05 PM DISH CLOTH INSPECTOR) Specimen Narrative Performed At This exam was not acquired at a [facility] facility and has not been [facility] interpreted by a [facility] Provider.The exam was imported into our imaging system for comparisons purposes. 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 Spouse
--- OUTSIDE RECORDS SUMMARY | 2019-01-27 17:55 | XMS REPORT | Continuity of Care Document ---
Author Author [facility] Address Unknown Phone Unavailable Care Team Providers Care Anode Adjuster Name Role Phone [facility] [employer] Information [employer] Unavailable Unavailable Problems Problem Status Onset Date Classification Date Reported Comments Source Fever Active Problem 09/21/2018 [facility] Indwelling catheter present on admission Active Problem 09/21/2018 [facility] Pneumonia Active Problem 09/21/2018 [facility] Sacral decubitus ulcer, stage IV Active Problem 09/21/2018 [facility] Sepsis Active Problem 09/21/2018 [facility] UTI due to urinary indwelling Regalado catheter Active Problem 09/21/2018 [facility] Wound infection Active Problem 09/21/2018 [facility] Medications Medication Details Route Status Patient Instructions Ordering Provider Order Date Source Acetaminophen With Codeine (Tylenol With Codeine #3 Tablet) 1 Each Tablet as needed for Pain Active [facility] Albuterol Sulfate 0.63 Mg/3 Ml Vial.neb as needed for Ifqay0ta [facility] Atorvastatin Calcium (Lipitor) 20 Mg Tablet Daily Active [facility] Guaifenesin/Dextromethorphan (Mucinex Dm Er 600-30 Mg Tablet) 1 Each Tab.er.12h Tid Prn for Cough Active [facility] Megestrol Acetate 400 Mg/10 Ml Oral.susp Daily Active [facility] Metoprolol Succinate 25 Mg Tab.er.24h Every 12 Hours Active [facility] Polyethylene Glycol 3350 (Miralax) 17 Gm Powd.pack Daily [facility] Tamsulosin Hcl (Flomax*) 0.4 Mg Cap Twice A Day [facility] Allergies, Adverse Reactions, Alerts Substance Category Reaction Severity Reaction type Status Date Reported Comments Source Penicillin SWELLING Mild Allergy to Substance Active 06/17/2011 [facility] Immunizations No Data Provided for This Section Results Order Name Results Value Reference Range Date Interpretation Comments Source Serum or plasma sodium measurement (moles/volume) 140 136 - 145 09/20/2018 [facility] Serum or plasma potassium measurement (moles/volume) 3.2 3.5 - 5.1 09/20/2018 [facility] Serum or plasma chloride measurement (moles/volume) 114 98 - 107 09/20/2018 [facility] Serum or plasma carbon dioxide, total measurement (moles/volume) 19 22 - 29 09/20/2018 [facility] Serum or plasma anion gap 10.2 8 - 16 09/20/2018 [facility] Serum or plasma urea nitrogen measurement (mass/volume) 13 7 - 26 09/20/2018 [facility] Serum or plasma creatinine measurement (mass/volume) 0.52 0.72 - 1.25 09/20/2018 [facility] Serum or plasma urea nitrogen/creatinine mass ratio 25 6 - 25 09/20/2018 [facility] Estimated glomerular filtration rate (GFR) determination > 60 60 09/20/2018 [facility] Glucose measurement 91 74 - 118 09/20/2018 [facility] Serum or plasma calcium measurement (mass/volume) 8.2 8.4 - 10.2 09/20/2018 [facility] Blood leukocytes automated count (number/volume) 6.84 4.8 - 10.8 09/19/2018 [facility] Blood erythrocytes automated count (number/volume) 2.77 4.3 - 5.7 09/19/2018 [facility] Blood hemoglobin measurement (moles/volume) 8.8 14.0 - 18.0 09/19/2018 [facility] Automated blood hematocrit (volume fraction) 26.3 38.2 - 49.6 09/19/2018 [facility] Automated erythrocyte mean corpuscular volume 94.9 81 - 99 09/19/2018 [facility] Automated erythrocyte mean corpuscular hemoglobin (mass per erythrocyte) 31.8 28 - 32 09/19/2018 [facility] Automated erythrocyte mean corpuscular hemoglobin concentration measurement (mass/volume) 33.5 31 - 35 09/19/2018 [facility] RDW BldCo-Rto 17.3 11.7 - 14.4 09/19/2018 [facility] Automated blood platelet count (count/volume) 59 140 - 360 09/19/2018 [facility] Automated blood segmented neutrophil count as percentage of total leukocytes 39.1 38.7 - 80.0 09/19/2018 [facility] Automated blood lymphocyte count as percentage ot total leukocytes 35.4 18.0 - 39.1 09/19/2018 [facility] Automated blood monocyte count as percentage of total leukocytes 3.8 4.4 - 11.3 09/19/2018 [facility] Automated blood eosinophil count as percentage of total leukocytes 1.8 0.0 - 6.0 09/19/2018 [facility] Automated blood basophil count as percentage of total leukocytes 0.6 0.0 - 1.0 09/19/2018 [facility] IM GRANULOCYTES % 19.3 0.0 - 1.0 09/19/2018 [facility] Automated blood neutrophil count 2.7 2.1 - 6.9 09/19/2018 [facility] Blood lymphocytes count (number/volume) 2.4 1.0 - 3.2 09/19/2018 [facility] Blood monocytes automated count (number/volume) 0.3 0.2 - 0.8 09/19/2018 [facility] Automated blood eosinophil count 0.1 0.0 - 0.4 09/19/2018 [facility] Automated blood basophil count (count/volume) 0.0 0.0 - 0.1 09/19/2018 [facility] Absolute Immature Granulocyte (auto 1.32 0 - 0.1 09/19/2018 [facility] Differential Total Cells Counted 100 09/19/2018 [facility] Manual blood neutrophils/100 leukocytes 35 40 - 74 09/19/2018 [facility] Manual blood lymphocytes/100 leukocytes 44 19 - 48 09/19/2018 [facility] Manual blood monocytes/100 leukocytes 7 3.4 - 9.0 09/19/2018 [facility] Manual blood eosinophil count as percentage of total leukocytes 2 0 - 7 09/19/2018 [facility] Manual basophil percentage 1 0 - 1.5 09/19/2018 [facility] Manual blood metamyelocytes/100 leukocytes 7 0 - 0 09/19/2018 [facility] Manual blood myelocytes/100 leukocytes 3 0 - 0 09/19/2018 [facility] Blood promyelocytes/100 leukocytes 1 0 - 0 09/19/2018 [facility] Blood platelets count by estimate (number/volume) MODERATELY DECREASED 09/19/2018 [facility] Platelet morphology FEW LARGE 09/19/2018 [facility] Blood polychromasia detection by light microscopy FEW 09/19/2018 [facility] Blood hypochromia detection by light microscopy MODERATE 09/19/2018 [facility] Blood anisocytosis detection by light microscopy MODERATE 09/19/2018 [facility] RBC morphology ABNORMAL 09/19/2018 [facility] Blood culture NO GROWTH AFTER 72 HOURS 09/18/2018 [facility] Blood lymphocytes variant count (number/volume) 2 09/17/2018 [facility] Blood macrocytes detection by light microscopy MODERATE 09/17/2018 [facility] Serum or plasma magnesium measurement (mass/volume) 1.8 1.3 - 2.1 09/16/2018 [facility] Serum or plasma trough vancomycin level at trough (mass/volume) 16.4 5.0 - 10.0 09/15/2018 [facility] Manual blood band neutrophils form/100 leukocytes 13 09/15/2018 [facility] Blood josé luis cells detection by light microscopy MODERATE 09/15/2018 [facility] Blood schistocytes detection by light microscopy RARE 09/15/2018 [facility] Serum or plasma total bilirubin measurement (mass/volume) 0.9 0.2 - 1.2 09/15/2018 [facility] Aspartate Amino Transf (AST/SGOT) 17 5 - 34 09/15/2018 [facility] Serum or plasma alanine aminotransferase measurement (enzymatic activity/volume) 26 0 - 55 09/15/2018 [facility] Serum or plasma protein measurement (mass/volume) 4.9 6.5 - 8.1 09/15/2018 [facility] Serum or plasma albumin measurement (mass/volume) 2.3 3.5 - 5.0 09/15/2018 [facility] Plasma globulin measurement (mass/volume) 2.6 2.3 - 3.5 09/15/2018 [facility] Serum or plasma albumin/globulin mass ratio 0.9 0.8 - 2.0 09/15/2018 [facility] Serum or plasma alkaline phosphatase measurement (enzymatic activity/volume) 539 40 - 150 09/15/2018 [facility] Serum or plasma creatine kinase measurement (enzymatic activity/volume) 56 30 - 200 09/14/2018 [facility] Serum or plasma creatine kinase MB measurement (mass/volume) 2.20 0 - 5.0 09/14/2018 [facility] Troponin I measurement by highly sensitive enzyme immunoassay 1.557 0 - 0.300 09/14/2018 [facility] Blood poikilocytosis detection by light microscopy SLIGHT 09/14/2018 [facility] Bacteria identification in wound by culture Organism: ACINETOBACTER BAUMANNII/HAEMOL 09/13/2018 [facility] Urine color determination YELLOW YELLOW 09/13/2018 [facility] Urine clarity HAZY CLEAR 09/13/2018 [facility] Specific gravity of Urine by Test strip 1.015 1.010 - 1.025 09/13/2018 [facility] Urine pH measurement by automated test strip 7 5 - 7 09/13/2018 [facility] Urine leukocyte esterase detection by dipstick NEGATIVE NEGATIVE 09/13/2018 [facility] Urine nitrite detection NEGATIVE NEGATIVE 09/13/2018 [facility] Urine protein measurement by test strip (mass/volume) TRACE NEGATIVE 09/13/2018 [facility] Urine glucose detection NEGATIVE NEGATIVE 09/13/2018 [facility] Urine ketones detection by automated test strip NEGATIVE NEGATIVE 09/13/2018 [facility] Urine urobilinogen measurement by test strip (mass/volume) 0.2 0.2 - 1 09/13/2018 [facility] Urine total bilirubin measurement (mass/volume) NEGATIVE NEGATIVE 09/13/2018 [facility] Urine erythrocytes detection TRACE NEGATIVE 09/13/2018 [facility] Automated urine sediment leukocyte count by microscopy (number/high power field) 6-10 0 - 5 09/13/2018 [facility] Erythrocytes detection in urine sediment by light microscopy 6-10 0 - 5 09/13/2018 [facility] Bacteria detection in urine sediment by light microscopy MODERATE NONE 09/13/2018 [facility] Epithelial cells detection in urine sediment by light microscopy FEW NONE 09/13/2018 [facility] Amorphous sediment detection in urine sediment by light microscopy MANY FEW 09/13/2018 [facility] Prothrombin time (PT) in platelet poor plasma by coagulation assay 17.0 11.9 - 14.5 09/13/2018 [facility] INR in Platelet poor plasma by Coagulation assay 1.32 09/13/2018 [facility] Activated partial thromboplastin time (aPTT) in platelet poor plasma bycoagulation assay 33.4 23.8 - 35.5 09/13/2018 [facility] Lactic Acid Level 19.6 4.5 - 19.8 09/13/2018 [facility] Bacterial blood culture Organism: ACINETOBACTER BAUMANNII/HAEMOL 09/13/2018 [facility] Pathology Reports No Data Provided for This [...] DC Date Status Source Departed Emergency Room [id number] MARIANA VERMA MD 10/11/2017 10/11/2017 [facility] Discharged Inpatient [id number] OWEN BRAR MD 09/13/2018 09/21/2018 [facility] Procedures Procedure Code Date Perfomer Comments Source Computed tomography of abdomen and pelvis with contrast [id number] 09/16/2018 SHEBIB [facility] Assessment and Plan No Data Provided for This Section Plan of Care Plan of Care Date Source Discharge Date 09/21/18 11:15am Disposition TRANSFER RESIDENTIAL Prescriptions See Medication Section 09/21/2018 [facility] Discharge Date 10/11/17 7:20pm Disposition HOME, SELF-CARE Condition at Discharge Stable Instructions/Education Provided Sprains - Knee Prescriptions See Medication Section Referrals ADILENE CORTES MD Address: [address] [place] [id number] Additional Instructions/Education Return to the closest emergency room if symptoms worsen. You may also take a maximum of 500mg Tylenol every 4 hours as needed for pain. Wear knee immbolizer Elevate your knee above your heart. Follow up with orthopedic surgeon tomorrow. 10/11/2017 [facility] Social History Social History Date Source Smoking Status Start Date Stop Date Never Smoker 09/21/2018 [facility] Family History No Data Provided for This Section Advance Directives Order Name Results Value Date Source Advance Directives Advance Directives Directive Response Recorded Date/Time Does the patient have an advance directive? No 09/14/18 12:12am If yes, is advance directive on file with [facility]? No 09/14/18 12:12am If not on file with [facility] will patient provide a copy? Yes 09/14/18 12:12am Do you have a Directive to Physician? No 09/13/18 8:10pm Do you have a Medical Power of Multimedia Project Manager? No 09/13/18 8:10pm Do you have an [...] rights and responsibilities? Yes 09/13/18 8:10pm 09/21/2018 [facility] Advance Directives Advance Directives Directive Response Recorded Date/Time Does the patient have an advance directive? No 12/06/07 6:34pm If yes, is advance directive on file with [facility]? No 12/06/07 6:34pm If not on file with [facility] will patient provide a copy? No 06/17/11 1:23pm Do you have a Directive to Physician? No 10/11/17 6:15pm Do you have a Medical Power of Multimedia Project Manager? No 10/11/17 6:15pm Do you have an [...] rights and responsibilities? Yes 10/11/17 6:15pm 10/11/2017 [facility] Functional Status No Data Provided for This Section
[2019-01-27 17:56] LABS: AMORPHOUS SEDIMENT,URINE MODERATE (FEW)
[2019-01-27 17:57] LABS: CALCIUM OXALATE CRYSTALS,UR FEW (FEW)
[2019-01-27 18:04] LABS: TRANSITIONAL EPI CELLS,URINE FEW
[2019-01-27 18:05] LABS: MUCUS,URINE RARE (RARE); YEAST,URINE MODERATE
[2019-01-27 18:10] LABS: ABG PCO2 26 mmHg (41-51); ABG PH 7.38 (7.31-7.41); ABG PO2 109 mmHg (80-105)
[2019-01-27 18:11] LABS: ABG HCO3 16 mmol/L (23-28)
[2019-01-27 18:12] LABS: BAND NEUTROPHILS % (MANUAL) 1 %; LYMPHOCYTES % (MANUAL) 61 % (19-48); METAMYELOCYTES % (MANUAL) 3 % (0-0); MONOCYTES % (MANUAL) 2 % (3.4-9.0); NEUTROPHILS % (MANUAL) 33 % (40-74); NUCLEATED RED BLOOD CELLS 1
[2019-01-27 18:15] LABS: PLATELET ESTIMATE ADEQUATE; PLATELET MORPHOLOGY COMMENT NORMAL; RBC MORPHOLOGY COMMENT ABNORMAL
[2019-01-27 18:19] LABS: HYPOCHROMASIA MODERATE
[2019-01-27] MEDS: FLUCONAZOLE 100 MG TAB PO SCH (18:28)
[2019-01-27] MEDS: SODIUM CHLORIDE 0.9% 1000ML 1,000 ML IV SCH (19:09)
--- NOTE | 2019-01-27 19:32 | Diagnostic Imaging Report ---
EXAM: CT Abdomen and Pelvis WITHOUT contrast INDICATION: ^abnormal lab values. Weakness ^[id number] ^[id number] COMPARISON: CT dated 09/16/2018 TECHNIQUE: Abdomen and pelvis were scanned utilizing a multidetector helical scanner from the lung base to the pubic symphysis without administration of IV contrast. Absence of intravenous contrast decreases sensitivity for detection of focal lesions and vascular pathology. Coronal and sagittal reformations were obtained. Routine protocol was performed. IV CONTRAST: None ORAL CONTRAST: None. COMPLICATIONS: None RADIATION DOSE: Total DLP: 342.46 mGy*cm Estimated effective dose: (DLP x 0.015 x size factor) mSv CTDIvol has been reviewed. It is below the limits set by the Radiation Protocol Committee (RPC). FINDINGS: LINES and TUBES: Regalado catheter. Right common femoral line in place with tip terminating in right external iliac vein. LOWER THORAX: Partially seen severe atherosclerotic calcification of coronary arteries. Dependent atelectasis. HEPATOBILIARY: No focal hepatic lesions. Again seen intrahepatic biliary dilatation. GALLBLADDER: Contracted, limiting evaluation. SPLEEN: Splenomegaly. PANCREAS: No focal masses or ductal dilatation. ADRENALS: No adrenal nodules KIDNEYS/URETERS: No hydronephrosis. 9 mm calculus in right renal pelvis, previously 6 mm. Left interpolar cyst again seen. GI TRACT: Stool throughout the colon, representing constipation. Large rectal stool burden. Nonobstructive bowel gas pattern. Appendix is not visualized. PELVIC ORGANS/BLADDER: Regalado catheter in place with balloon and tip within bladder. The bladder is moderately distended and there is nondependent air from instrumentation. LYMPH NODES: No lymphadenopathy. VESSELS: There is moderate atherosclerotic disease in the aorta and major arterial branches. IVC filter in place. 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 PERITONEUM / RETROPERITONEUM: No free air or fluid. BONES: Generalized demineralization. There are topic ossification adjacent to the left superior pubic ramus. Left iliac sclerotic focus, likely a bone island, unchanged. Lumbar spine scoliosis with multilevel advanced degenerative changes. SOFT TISSUES: There is diffuse anarsarca. IMPRESSION: 1. Very limited study without intravenous contrast. 2. Constipation and large rectal stool burden, representing rectal fecal impaction. There is mass effect from rectum on anteriorly displaced bladder. 3. Moderate distention bladder with urine and air, despite presence of Regalado catheter. 4. Ancillary findings as above. Signed by: Dr. Jorge L Ramires MD on 01/27/2019 7:29 PM
[2019-01-27 22:34] VITALS: BP 93/51
[2019-01-28] VITALS (11 sets, daily range): BP systolic 82–99; BP diastolic 42–53
[2019-01-28 03:44] LABS: CREATINE KINASE MB 5.7 ng/mL (0-5.0)
--- NOTE | 2019-01-28 03:51 | NUR ---
SPOKE TO DR. ELLSWORTH DROP COUNT ASSOCIATE FOR DR. BRAR AT THIS TIME REGARDING TROPONIN. NO NEW ORDER.
[2019-01-28] MEDS ORDERED: KLOR-CON20 MEQ (05:14)
[2019-01-28] MEDS ORDERED: JUVEN PACKET1 EACH (05:14)
[2019-01-28] MEDS ORDERED: LASIX20 MG PO (05:14)
[2019-01-28] MEDS ORDERED: IPRAT-ALBUT 0.5-3 ML (05:14)
[2019-01-28] MEDS ORDERED: ASPIRIN CHEW81 MG PO (05:14)
[2019-01-28] MEDS ORDERED: PACERONE100 MG PO (05:14)
[2019-01-28] MEDS ORDERED: MUCINEX PO (05:14)
[2019-01-28] MEDS ORDERED: OXYBUTYNIN CHLOR5 MG PO (05:14)
--- NOTE | 2019-01-28 06:00 | NUR ---
MINIMAL BLEEDING TO FEMORAL CENTRAL LINE SITE. PRESSURE APPLIED FOR 15 MINS. RECHECKED SITE. NO MORE BLEEDING NOTED.
--- NOTE | 2019-01-28 06:14 | NUR ---
DR. BRAR DOING ROUNDS. INFORMED ABOUT THE TROPONIN LEVEL AND LOW URINE OUTPUT. ORDERED TO A ROUTINE CONSULT TO DR. TURNER AND DR. CONRAD. ALSO SAID TO CONTINUE HOME MEDS Addendum: 01/28/19 at 0632 by Tyson Enriquez RN ALSO ORDERED TYLENOL PRN AND URINE CULTURE
[2019-01-28] MEDS: SODIUM CHLORIDE 0.9% 1000ML 1,000 ML IV SCH (06:15)
[2019-01-28] MEDS ORDERED: ACETAMINOPHEN 325 MG TAB PO PRN (06:30)
--- NOTE | 2019-01-28 07:00 | NUR ---
RECEIVED PATIENT RESTING IN BED NO S/S OF DISTRESS. BED LOW, WHEELS LOCKED, SIDE RAILS X2. ALTERNATING PRESSURE MATTRESS IN PLACE. CALL LIGHT IN REACH WILL CONTINUE TO MONITOR PATIENT.
[2019-01-28] MEDS: ALBUTEROL/IPRATROPIUM 3 ML NEB NEB SCH ×2 (07:05→20:00)
[2019-01-28] MEDS ORDERED: MUCINEX PO SCH (09:00)
[2019-01-28] MEDS: ATORVASTATIN 10 MG TAB PO SCH (09:55)
[2019-01-28] MEDS: GUAIFENESIN 600MG/DEXTROMETHORPHAN 30MG TABSR PO SCH ×2 (09:55→20:44)
[2019-01-28] MEDS: FLUCONAZOLE 100 MG TAB PO SCH (09:55)
[2019-01-28] MEDS: MEGACE 400MG/ 10ML CUP PO SCH (09:55)
[2019-01-28] MEDS: TAMSULOSIN HCL 0.4 MG CAP PO SCH ×2 (09:55→20:44)
[2019-01-28] MEDS: AMIODARONE HCL 200 MG TAB PO SCH (09:55)
[2019-01-28] MEDS ORDERED: SODIUM BICARBONATE 8.4% 75 ML in DEXTROSE 5% 1,000 ML IV ONE (10:45)
[2019-01-28 12:41] LABS: CREATINE KINASE MB 4.1 ng/mL (0-5.0)
[2019-01-28] MEDS: POLYETHYLENE GLYCOL 3350 17 GM PACK PO SCH (12:44)
--- NOTE | 2019-01-28 12:59 | NUR ---
WOUND CARE NURSE AT BEDSIDE.
--- NOTE | 2019-01-28 13:47 | Consultation ---
DATE OF CONSULTATION: 01/28/2019 Cardiology Consultation HISTORY OF PRESENT ILLNESS: This is an 83-year-old man with a history of cerebrovascular accident, stage IV cancer, severe debilitation and chronic malnutrition, hypertension, history of decubitus ulceration, who presented with increased lethargy, poor p.o. intake, and altered mental status. The patient also has a history of paroxysmal atrial flutter, not on anticoagulation due to significant debilitation and abnormalities. I cannot obtain a review of systems due to his severe altered mental status. We were consulted due to abnormal cardiac enzymes. REVIEW OF SYSTEMS: Unable to be obtained. PAST MEDICAL HISTORY: As stated above in the HPI. PAST SURGICAL HISTORY: None recent. FAMILY HISTORY: Noncontributory. ALLERGIES: PENICILLIN. MEDICATIONS: See medication reconciliation form. SOCIAL HISTORY: No current illicit drug, alcohol, or tobacco use. OBJECTIVE: VITAL SIGNS: Temperature is 97.3, heart rate is 86, respirations are 16, blood pressure is 94/50, and oxygen saturation 95% on room air. GENERAL: He is a chronically ill-appearing elderly man, sleeping comfortably. HEENT: Head is normocephalic, atraumatic. Eyes, conjunctivae appears clear. NECK: No jugular venous distention. No bruits. CARDIOVASCULAR: Regular rate and rhythm. Systolic murmur at the left sternal border. LUNGS: Diminished bases with scattered rhonchi. ABDOMEN: Soft, nontender, and nondistended. EXTREMITIES: No edema. VASCULAR: Diminished pulses. NEUROLOGIC: The patient is lethargic with altered mental status. CARDIOVASCULAR MEDICATIONS: Reviewed. LABORATORY DATA: Reviewed. Hemoglobin is 12, white blood cell count is 13, platelets 154. Creatinine 1.4, potassium 4.1, sodium 156. AST 109, ALT 86, alkaline phosphatase 2423. Troponin is 0.8, 0.74, and 0.61. CK-MB 5.2. BNP is 1360. CT of the abdomen and pelvis shows constipation with large rectal stool burden. Chest x-ray shows no acute cardiopulmonary abnormality. TELEMETRY: Monitoring revealed sinus tachycardia. IMPRESSION: 1. Abnormal cardiac enzymes. 2. Hypotension. 3. Chronic debilitation and malnutrition. 4. Hypernatremia. 5. Vnpde-zk-qlonmxy kidney disease. 6. Paroxysmal atrial flutter. RECOMMENDATIONS: Continue supportive care per primary team. His overall prognosis is very poor given severe metabolic derangements, malnutrition, advanced age, and low BMI. Continue current cardiovascular medications consisting of amiodarone. Maintain on telemetry. Echocardiogram has been ordered and we reviewed. This has been completed. We will continue to follow along with you. DO JOSE Sin/RAZIA /[id number]
--- NOTE | 2019-01-28 14:13 | History and Physical ---
CHIEF COMPLAINT: This is an 83-year-old gentleman who came from home with complaints of dehydration. HISTORY OF PRESENTING ILLNESS: Mr. 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 The patient came in. He was given 3 L of fluid in the ER and admitted to the hospital for marked dehydration. PAST MEDICAL HISTORY: History of CVA as mentioned above. The patient also has history of atrial fibrillation, history of hypertension, history of hyperlipidemia, history of BPH, and history of constipation. The patient also is malnourished and has severe protein-energy malnutrition. The patient also has history of sacral decubitus ulcers, stage IV, which has a wound VAC to it and multiple problems with urinary tract infection and the patient also has an indwelling catheter. MEDICATIONS: He takes at home are Tylenol with Codeine q. 6 hours as needed, amiodarone 100 mg daily. The patient takes daily for malnutrition, aspirin once a day, atorvastatin 20 mg at nighttime, Lasix 20 mg twice a day, and Albuterol-ipratropium daily. The patient takes Megace 400 mg daily, MiraLax for constipation, and potassium chloride as needed. Tamsulosin 0.4 mg twice a day. ALLERGIES: MEDICATION ALLERGIES, ALLERGIC TO PENICILLINS. REVIEW OF SYSTEMS: The patient has no chest pain. No shortness of breath. The patient is nonverbal and is difficult to get meaningful . The patient apparently does talk at home. Currently, unable to get any review of systems. PHYSICAL EXAMINATION: VITAL SIGNS: Temperature is 96.0, pulse of 87, respirations of 18, blood pressure is 92/50, pulse oximetry of 97%. HEENT: Normocephalic, atraumatic. The patient has multiple ecchymoses in the body. Left hemiparesis present. The patient is cachectic and malnourished. CVS: S1, S2 normal, regular rate and rhythm. ABDOMEN: Tender. EXTREMITIES: No clubbing, no cyanosis or edema. Left-sided hemiparesis noticed. LABORATORY DATA: White count 13.74, hemoglobin of 12.2, hematocrit of 39.7, neutrophil count is 31.3, lymphocytes count was 7.5. Chemistry, sodium 156, BUN of 114, creatinine of 1.44, estimated GFR is 47. AST and ALT 109 and 86. Troponin was 0.80 and down trended to 0.71. BNP was 1360. Lipase was normal. Coags normal. Fibrinogen is 504. Microbiology, blood culture and urine cultures are pending. IMAGING STUDIES: Abdominal CT shows constipation rectal stool burden, moderate distention of the bladder with urine despite presence of Regalado catheter. Chest x-ray, no acute cardiothoracic abnormalities. ASSESSMENT: Mr. Dewayne Reid is an 83-year-old with: 1. Acute dehydration. 2. Acute renal failure. 3. Cachexia with severe protein-energy malnutrition. 4. History of cerebrovascular accident with left-sided hemiparesis, multiple ecchymoses. The patient also has hyperlipidemia and hypertension and atrial fibrillation. PLAN: At this time would be to continue with fluids. Restart his home medication except for his Lasix. The patient has been started on some for leukocytosis. Urine cultures are pending. Blood cultures are pending. Further recommendation per clinical course. A consult with Dr. Terry has been done and also consult with Dr. Bruno Jorgensen for his . We will continue to monitor the patient along with consultants. MD IKE Singer/JOBYL /[id number]
--- NOTE | 2019-01-28 15:38 | NUR ---
PATIENT TRANSFERRED TO ROOM 202. PATIENT LEFT IN STABLE CONDITION.
--- NOTE | 2019-01-28 15:39 | NUR ---
RECEIVED PT FROM [facility], PT IS RESTING COMFORTABLY IN BED, NO S/S OF DISTRESS. sODIUM BICARB IS RUNNING AT 100ML/HR AT THE FEMORAL CATHETER. SIDE RAILS ARE UP AND CALL LIGHT IS PLACED WITHIN REACH. FAMILY IS AT THE BEDSIDE
--- NOTE | 2019-01-28 15:39 | NUR ---
WOUNFCARE CONSULT FOR 83 YO HX DEHYDRATION ,JASBIR 12 ON MODERATE PUP STRICT PUP IS RECOMMENDED FOR PT DEBILITATED WEAKENED STATE ALTERNATING MATTRESS IN PLACE WITH BILATERAL PILLOW SUSPENSION AND HEEL PROTECTORS IN PLACE LAB_ WBC- 13.74,HGB12.2, GLUCOSE 99 AND PT HAS BLOOD CULTURE PENDING PT ON DIFLUCAN MULTIPLE GENERALIZED PARTIAL THICKNESS SKIN TEARS NOTED AND DOCUMENTED ON ASSESSMENT FORM ALSO MULTIPLE DTI AREAS NOTED AND DOCUMENTED UPON WELL SACRAL STAGE 4 ULCERATION SHOWS INCREASED NECROTIC TISSUE TO WOUND BASE ALSO FOUL SMELL AND DRAINAGE NOTED EXPOSED BONE PRESENT IN WOUND BED SANDY WOUND NECROTIC PATCHES OF ESCHAR NOTED TO RT AND LFT ISCHIUM VAC FOAM REMOVED ORDERS FROM DR BRAR TO REMOVE VAC AND PLACE CURASALT FOR WOUND BED PREPARATION AND CLEAN UP FOR FUTURE NEGATIVE PRESSURE USAGE OTHER RECOMMENDATIONS INCLUDE NURSING TO APPLY DAILY VENELEX TO LEFT FOOT STAGE 2 TOE ULCERATIONS LEAVE OPEN TO AIR NURSING TO APPLY DAILY CURASALT TO SACRAL WOUND BASE COVER USING 2 ALLEVYN FOAM DRESSINGS NURSING TO APPLY XEROFORM DEREJE TO SKIN MULTIPLE TEARS COVER WITH FOAM SECURE WITH LOOSE WRAP NURSING TO INSURE NUTRITIONAL CONSULT FOR WOUND HEALING INCREASED NUTRITIONAL NEEDS Addendum: 01/28/19 at 1556 by Alessio Rust RN Amended: Links added.
--- NOTE | 2019-01-28 15:57 | NUR ---
Attempted several visits today but other adjunct faculty for medical terminology were assessing patient. Will revisit tomorrow morning. - Dietitian
--- NOTE | 2019-01-28 17:20 | Diagnostic Imaging Report ---
EXAM: Renal Ultrasound INDICATION: Acute kidney injury COMPARISON: None TECHNIQUE: Transverse and longitudinal images of the kidneys and bladder were obtained. FINDINGS: Right Kidney: Length: 9.8 cm Appearance: Normal echogenicity. Collecting system: No hydronephrosis Stones: Echogenic 10 mm structure in the renal pelvis with posterior shadowing consistent with calculus. Cyst/Mass: None Left Kidney: Length: 9.6 cm Appearance: Normal echogenicity. Collecting system: No hydronephrosis Stones: None Cyst/Mass: 1.3 x 0.9 x 1.0 cm mid pole anechoic simple cyst. Bladder: Decompressed bladder with Regalado in place. Incidental note is made of mild splenomegaly to 15 cm. IMPRESSION: Right renal pelvis 10 mm renal calculus. No hydronephrosis. Signed by: Darius Dinh MD on 01/28/2019 5:17 PM
--- NOTE | 2019-01-28 18:42 | NUR ---
FAMILY IS REQUESTING THAT THE TYLENOL #3 BE CONTINUED, PAGED DR. BRAR AND WAITING FOR CALL BACK
[2019-01-28] MEDS ORDERED: BISACODYL 5 MG TAB EC PO ONE (19:30)
--- NOTE | 2019-01-28 19:44 | Consultation ---
DATE OF CONSULTATION: 01/28/2019 REQUESTING PHYSICIAN: Blas Orozco MD REASON FOR CONSULTATION: Low urine output. HISTORY OF PRESENT ILLNESS: This is an 83-year-old male, rather unfortunate since last year, he had a stroke apparently complicated by aspiration pneumonia, now with a bedsore, he has essentially been bedridden, being spoon fed, chronically on a pureed diet, recently expressed to his that he "felt like he was ," which is not surprising given current status. He has lost quite a bit of muscle mass. He has been dealing with atrial fibrillation with RVR in addition to his wound care issues. He has a VAC dressing on his back, came with decreasing intake weakness. Most of the history was obtained from the family as he is unable to talk much and there at times can be a tendency of getting admission here was noted that workup showed creatinine of 1.44 from a baseline of 0.5 mg%. BUN was elevated at 114, chloride 121, serum CO2 of 21. Sodium was high at 156. Urinalysis showed a few white cells and rbc's. There was concern that his Regalado was not draining fully on the CAT scan. He does have a few renal cysts. Ultrasound is pending. His concern that is the rectal stool was actually causing mass effect on the bladder. PAST MEDICAL HISTORY: 1. Deconditioning. 2. Decubitus ulcer. 3. History of stroke. 4. Aspiration pneumonia. 5. Prior baseline creatinine of 0.5. 6. Atrial fibrillation with RVR. 7. Bedridden state. 8. Splenomegaly. 9. History of stage IV splenic cancer. 10. There is some diffuse anasarca. HOME MEDICATIONS: 1. Tylenol with codeine. 2. Arginine. 3. Greg packet. 4. Aspirin 81 mg daily. 5. Lasix 20 mg a day. 6. Megace 400 mg daily. 7. Polyethylene glycol daily. 8. Tamsulosin 0.4 at bedtime. SOCIAL HISTORY: Currently at home, although he has been in and out of the hospital most of this last year. FAMILY HISTORY: No kidney problems. REVIEW OF SYSTEMS: Review of systems is limited as he is unable to give himself. CONSTITUTIONAL: Has been weak. NEURO: Has been weak. Muscle wasting noted. History of stroke. CARDIAC: Denies syncope at this time. GI: Decreased intake given some chronic constipation issues. SKIN: Decubitus ulcer has been hard to heal. Rest of review is negative. PHYSICAL EXAMINATION: GENERAL: Chronically ill-appearing lady, frail, thinly built. VITAL SIGNS: Temperature is 97.3, pulse 89, and blood pressure 99/50. HEENT: Atraumatic. Eyeballs are sunken. NECK: Neck veins are flat. SKIN: Multiple ecchymoses. Multiple dressings. CHEST: Clear bilateral breath sounds are equal. CARDIAC: Regular at this time. ABDOMEN: No definite guarding or rigidity. NEURO: Occasionally he will talk. He appears to be appropriate. Seems to be for the most part too weak to do anything otherwise. LABORATORY DATA: Sodium 156, K 4.1, serum CO2 of 19, creatinine 1.44, BUN 14. Blood gas is pH of 7.38, hemoglobin 12.2. UA showing few white cells and rbc's. CT scan showing a possible mass effect of the rectum on the bladder from stool. Multiple cysts on the kidney. PA-albumin is only 2.4, and alkaline phosphatase at 2423. ASSESSMENT: 1. Hyponatremia. 2. Likely intravascular volume depletion. 3. Metabolic acidosis. 4. Possible partial bladder obstruction (see CT scan findings). 5. History of underlying splenic carcinoma. PLAN: 1. Changed to D5 water with 75 mg of sodium bicarbonate per liter. 2. Get renal ultrasound. 3. Check uric acid levels. 4. Overall, remains quite ill. 5. If this is purely a volume issue, should get better on its own, however, if there is more going on. For example, tubular necrosis due to his infections, it could be potentially more dangerous. There is no renal recovery. I would not consider dialysis. I did explain this to the . The other considerations given the lack of significant improvement for quality of life is whether Mr. Reid himself is considering palliative care, I will leave this discussion to you. MD PIERCE Coleman/RAZIA /[id number]
[2019-01-28] MEDS: ACETAMINOPHEN/CODEINE 300MG - 30MG TAB PO PRN (20:44)
[2019-01-29] VITALS (7 sets, daily range): BP systolic 77–116; BP diastolic 35–49
[2019-01-29 04:58] LABS: BASOPHILS # (AUTO) 0.2 (0.0-0.1); BASOPHILS % 0.9 % (0.0-1.0); HEMATOCRIT 30.8 % (38.2-49.6); HEMOGLOBIN 9.5 g/dL (14.0-18.0); LYMPHOCYTES # (AUTO) 10.8 (1.0-3.2); LYMPHOCYTES % 57.8 % (18.0-39.1); MEAN CORPUSCULAR HEMOGLOBIN 30.4 pg (28-32); MEAN CORPUSCULAR HGB CONC 30.8 g/dL (31-35); MEAN CORPUSCULAR VOLUME 98.4 fL (81-99); MONOCYTES # (AUTO) 0.5 (0.2-0.8); MONOCYTES % 2.6 % (4.4-11.3); NEUTROPHILS # (AUTO) 5.8 (2.1-6.9); NEUTROPHILS % 30.8 % (38.7-80.0); PLATELET COUNT 98 x10e3/uL (140-360); RED BLOOD COUNT 3.13 x10e6/uL (4.3-5.7)
[2019-01-29 05:20] LABS: MAGNESIUM 2.5 MG/DL (1.3-2.1); PHOSPHORUS 2.6 MG/DL (2.3-4.7)
[2019-01-29 05:33] LABS: ANION GAP 16.3 mmol/L (8-16); BLOOD UREA NITROGEN 82 mg/dL (7-26); BUN/CREATININE RATIO 93 (6-25); CALCIUM 7.9 mg/dL (8.4-10.2); CARBON DIOXIDE 20 mmol/L (22-29); CHLORIDE 121 mmol/L (98-107); CREATININE, SERUM 0.88 mg/dL (0.72-1.25); EST GLOMERULAR FILTRATION RATE > 60 ML/MIN (60-); GLUCOSE 116 mg/dL (74-118); POTASSIUM 3.3 mmol/L (3.5-5.1); SODIUM 154 mmol/L (136-145)
--- NOTE | 2019-01-29 07:00 | NUR ---
RECEIVED AM REPORT FROM NURSE AND MORNING ROUNDS DONE. PT IS SLEEPING, NO S/S OF DISTRESS. SIDE RAILS ARE UP BED IN LOWEST POSITION CALL LIGHT WITHIN REACH
[2019-01-29] MEDS: ALBUTEROL/IPRATROPIUM 3 ML NEB NEB SCH ×2 (07:20→19:30)
[2019-01-29] MEDS ORDERED: SODIUM CHLORIDE 0.9% 500ML 500 ML IV ONE (07:37)
[2019-01-29 07:52] LABS: LYMPHOCYTES % (MANUAL) 68 % (19-48); MONOCYTES % (MANUAL) 2 % (3.4-9.0); NEUTROPHILS % (MANUAL) 30 % (40-74)
[2019-01-29 07:53] LABS: PLATELET ESTIMATE MARKEDLY DECREASED; RBC MORPHOLOGY COMMENT NORMAL
[2019-01-29] MEDS ORDERED: POLYETHYLENE GLYCOL 3350 17 GM PACK PO SCH (09:00)
[2019-01-29] MEDS ORDERED: BALSAM PERU/CASTOR OIL 60 GM OINT...G. TP SCH (09:00)
--- NOTE | 2019-01-29 09:36 | NUR ---
Nutrition Intervention Note RD Recommendation(s) for Physician: -Continue current diet per MD, texture per speech. -Recommend FISH PACKER chang d/t PMH hx of dysphasia. -Recommend zinc sulfate 220 mg daily x 10 days, Vit C 500 mg BID, M/ with minerals daily to help promote wound healing. -Recommend addition of Greg BID to help promote wound healing if medically feasible. - Assist with feeding as needed -Continue appetite stimulant per MD. -Pt meets criteria for SEVERE protein calorie malnutrition. Plan of Care: RD following, monitoring for tolerance and adequacy. Ensure Enlive BID if medically feasible. Ensure pudding BID. Nutrition reason for involvement: MD Consult RD Assessment 01/29: 83 YOM admitted for severe dehydration. Pt was seen lying in bed with at bedside. was able to answer all questions, she stated the pt has not eaten much over the past week and has had a decline in weight. Pt was here 3 months ago and was 137 lbs per , suggesting a 12% weight loss within 3 months which is significant. reports the pt drinks Ensure Enlive at home, spoke with nurse about ordering supplement. Recommend FISH PACKER evraymon to ensure the pt is consuming the correct consistency of food and liquid. Recommend to change Ensure Enlive to Ensure pudding if pt is meant to be on thickened liquids and d/c Greg. Per H and P, pt has severe protein calorie malnutrition. Provided wound healing recommendations above as well d/t pt having possible pressure ulcers; wound care has been consulted. denied N/V for the pt but stated he had constipation and denied food allergies. Pt has been consuming 25-50% of his meals per meal assessment. Will continue to monitor. Principal Problems/Diagnoses: Severe Dehydration PMH: History of CVA as mentioned above. The patient also has history of atrial fibrillation, history of hypertension, history of hyperlipidemia, history of BPH, and history of constipation. GI: Abd: soft, non tender, flat LBM: not recorded Skin: multiple pressure ulcers per EMR Labs: (01/29) Na 154, K 3.3, Cl 121, Co2 20, BUN 82, Ca 7.9, Mg 2.5 Meds: (01/29) flomax, miralax, megace, Lipitor, abx, D5 water with 75 mg of sodium bicarbonate per liter. Ht:69 inches Wt:120 lbs (54.5 kg) BMI:17.7 kg/m^2 IBW:160 lbs Malnutrition Evaluation (01/29) The patient meets criteria for unspecified SEVERE protein-calorie malnutrition. Energy intake: <50% of estimated energy requirements for >5 days Weight loss: >7.5% in 3 months (Chronic) Fat loss: Severe Muscle loss: Severe Supporting Evidence: Fluid accumulation: unable to evaluate Functional Status:, unable to evaluate Nutrition Prescription (Diet Order): pureed, heart healthy Estimated Nutritional Needs: Calories: 0246-6503(30-35) Weight used : CBW Protein : 81-109(1.5-2) Weight used: CBW Diet Adequacy: Not meeting calorie needs, Not meeting protein needs Diet Education Needs Assessment: Diet education indicated, but patient not appropriate for education at this time. Nutrition Care Level: high Nutrition Diagnosis: Chronic severe protein calorie malnutrition related to medical condition as evidenced by 12% weight loss within 3 months and nutrition focused physical findings of malnutrition. Goal: Patient will meet 75-100% of estimated needs by follow up Progressing: N/A Interventions: Pureed, cholesterol, mineral (sodium), fat modified diet, Commercial beverage, Commercial food, IVF, Prescription medications, Recommended Modifications, Multivitamin/mineral supplement therapy, Collaboration with other providers Monitoring/Evaluation: -Total energy intake, Total protein intake, IVF, Modified diet, Liquid supplement, Weight change Signed: Ruthie Earl RD, LD
--- NOTE | 2019-01-29 09:37 | Progress Note ---
DATE: 01/29/2019 SUBJECTIVE: An 83-year-old, who comes in with generalized debility, history of sacral ulcers. The patient with a marked amount of acute renal failure with dehydration. The patient has been on bicarb drip. Currently very weak and fatigued. The patient is verbal and arousable. PHYSICAL EXAMINATION: VITAL SIGNS: Temperature is 97.4, pulse of 96, respirations of 18, blood pressure is 90/41. HEENT: Normocephalic. The patient is edentulous. The patient has multiple ecchymoses on the face and the neck. CVS: S1 and S2 normal. Regular rate and rhythm. ABDOMEN: Scaphoid, nontender, nondistended. EXTREMITIES: No clubbing, no cyanosis, and no edema. The patient has left-sided weakness, which is residual from his CVA. Muscle wasting seen and sacral decubitus present with wound VAC to the area. LABORATORY DATA: Wound cultures have been done and also wound care has been done. Today's white count is 18,000, hemoglobin of 9.5, hematocrit 30.9. Chemistry shows sodium 154 still, potassium 3.3, BUN of 82, creatinine 0.88, magnesium is 2.5. BNP was normal. Troponins have been on a downtrend 0.7 to 0.6. Coags are stable. IMAGING STUDIES: Renal ultrasound was done yesterday, shows decompressed bladder with Regalado in place and left kidney and right kidney with no hydronephrosis and no acute echogenicities. MICROBIOLOGY: No growth in blood cultures so far. ASSESSMENT: An 83-year-old gentleman with: 1. Hypernatremia. 2. Dehydration. 3. Acute renal failure. 4. History of coronary artery disease. 5. History of cerebrovascular accident. 6. History of hypertension, currently hypotensive. 7. History of sacral decubitus. 8. History of chronic debility and malnutrition. PLAN: At this time is to continue with supportive care. The patient's overall prognosis is very poor. White count has been elevated. We will continue to monitor his white count. Further recommendation per clinical course. We will continue to monitor the patient. The patient's is aware of his situation and also is on-board with the treatment plan. MD TEN SingerJ/MODL /[id number]
--- NOTE | 2019-01-29 09:45 | NUR ---
ASSESSMENT: Spiritual distress Pt's let down by local [facility] and medical system. Pt's states her 's health has been steadily declining since last March. Pt's feels the healthcare system hasn't aided in his recovery. Pt's also disappointed with pastoral care provided by local [facility]. Pt's and family friend at bedside. Intervention: Provided empathic listening and facilitated illness review. Provided business card and information on how to reach certified medical transcriptionist if needed. Provided prayer. Outcome: Pt and friend expressed appreciation for visit. Will follow as able. BRETT OVERTON [employer] Architect Spiritual Care Department O: [phone] Pager: [phone] ([phone] number calling from)
[2019-01-29] MEDS: POLYETHYLENE GLYCOL 3350 17 GM PACK PO SCH (10:21)
[2019-01-29] MEDS: MEGACE 400MG/ 10ML CUP PO SCH (10:21)
[2019-01-29] MEDS: GUAIFENESIN 600MG/DEXTROMETHORPHAN 30MG TABSR PO SCH ×2 (10:21→22:00)
[2019-01-29] MEDS: FLUCONAZOLE 100 MG TAB PO SCH (10:21)
[2019-01-29] MEDS: ATORVASTATIN 10 MG TAB PO SCH (10:21)
[2019-01-29] MEDS: TAMSULOSIN HCL 0.4 MG CAP PO SCH ×2 (10:21→22:30)
[2019-01-29] MEDS: AMIODARONE HCL 200 MG TAB PO SCH (10:21)
[2019-01-29] MEDS ORDERED: POTASSIUM CHLORIDE 20 MEQ TAB CR PO ONE (11:00)
[2019-01-29] MEDS ORDERED: SODIUM BICARBONATE 8.4% 75 ML in DEXTROSE 5% 1,000 ML IV ONE (13:45)
[2019-01-29] MEDS: METRONIDAZOLE 500MG/NS 100ML 100 ML IV SCH ×2 (14:00→22:30)
--- NOTE | 2019-01-29 15:34 | Progress Note ---
DATE: 01.29.19 SUBJECTIVE: Remains very frail and weak, unable to really talk. Chemistries have improved. OBJECTIVE: VITAL SIGNS: Blood pressure 100/49, pulse 94, and temperature 96. CHEST: Clear. NECK: Neck veins are flat. SKIN: With multiple ecchymoses. NEURO: Generalized weakness. Occasionally he will open his eyes. LABORATORY DATA: Sodium is 154, K of 3.3, serum CO2 of 21, creatinine down to 0.88, BUN 82. Bladder ultrasound is not showing the bladder being decompressed. ASSESSMENT: 1. Acute kidney injury. 2. Dehydration. 3. Hypernatremia. 4. Metabolic acidosis. PLAN: Continue repeat one more dose of dextrose with 75 mEq of bicarbonate. Serial chemistries. We will follow along. MD DERRELL ColemanK/RAZIA /[id number] MTDD
--- NOTE | 2019-01-29 16:01 | NUR ---
ASSIST NURSING TODAY WITH DRESSING CHANGE AT BEDSIDE CURRENT ORDER FOR SACRAL WOUND APPLIED WOUND BASE TO SACRAL WOUND SHOWS LESS LOOSE NECROTIC TISSUE AND SMELL IS LESS ODORIFEROUS WOUND CONTINUES TO SHOW NEED FOR INCREASED NUTRITION AND WILL BENEFIT FROM CURRENT NUTRITIONAL SUPPORT GIVEN WOUNDCARE WILL CONTINUE TO FOLLOW UP AND ASSIST IN PATIENT CARE NEEDED Addendum: 01/29/19 at 1609 by Alessio Rust RN Amended: Links added.
--- NOTE | 2019-01-29 16:31 | NUR ---
WOUND CARE DONE
[2019-01-29] MEDS ORDERED: LEVOFLOXACIN 750MG/D5W 150ML 150 ML IV SCH (17:00)
[2019-01-29] MEDS: ACETAMINOPHEN/CODEINE 300MG - 30MG TAB PO PRN (22:30)
[2019-01-30 00:51] VITALS: BP 94/42
[2019-01-30] MEDS: METRONIDAZOLE 500MG/NS 100ML 100 ML IV SCH (05:03)
[2019-01-30 05:10] LABS: BASOPHILS # (AUTO) 0.1 (0.0-0.1); BASOPHILS % 0.6 % (0.0-1.0); HEMATOCRIT 32.7 % (38.2-49.6); HEMOGLOBIN 10.2 g/dL (14.0-18.0); LYMPHOCYTES # (AUTO) 9.7 (1.0-3.2); LYMPHOCYTES % 45.3 % (18.0-39.1); MEAN CORPUSCULAR HEMOGLOBIN 30.3 pg (28-32); MEAN CORPUSCULAR HGB CONC 31.2 g/dL (31-35); MONOCYTES # (AUTO) 0.4 (0.2-0.8); MONOCYTES % 1.9 % (4.4-11.3); NEUTROPHILS # (AUTO) 9.7 (2.1-6.9); NEUTROPHILS % 45.5 % (38.7-80.0); PLATELET COUNT 95 x10e3/uL (140-360); RED BLOOD COUNT 3.37 x10e6/uL (4.3-5.7); RED CELL DISTRIBUTION WIDTH 17.3 % (11.7-14.4)
[2019-01-30 05:28] LABS: MAGNESIUM 2.4 MG/DL (1.3-2.1); PHOSPHORUS 3.4 MG/DL (2.3-4.7)
[2019-01-30 05:44] LABS: ANION GAP 17.7 mmol/L (8-16); CALCIUM 7.7 mg/dL (8.4-10.2); CREATININE, SERUM 1.15 mg/dL (0.72-1.25); POTASSIUM 3.7 mmol/L (3.5-5.1)
[2019-01-30 05:49] VITALS: BP 87/37
[2019-01-30 06:38] LABS: BAND NEUTROPHILS % (MANUAL) 2 %; LYMPHOCYTES % (MANUAL) 51 % (19-48); METAMYELOCYTES % (MANUAL) 2 % (0-0); MONOCYTES % (MANUAL) 1 % (3.4-9.0); MYELOCYTES % (MANUAL) 2 % (0-0); NEUTROPHILS % (MANUAL) 42 % (40-74); PLATELET MORPHOLOGY COMMENT NORMAL; RBC MORPHOLOGY COMMENT NORMAL
[2019-01-30 06:39] LABS: ANISOCYTOSIS SLIGHT; PLATELET ESTIMATE SLIGHTLY DECREASED
[2019-01-30] MEDS: ALBUTEROL/IPRATROPIUM 3 ML NEB NEB SCH (06:58)
[2019-01-30 08:05] VITALS: BP 68/29
--- NOTE | 2019-01-30 08:17 | Progress Note ---
DATE: 01/30/2019 SUBJECTIVE: The patient comes in with fever and wound infection. The patient also has multiple ecchymoses. The patient also has elevated troponin and currently nonverbal at this time and sleepy. OBJECTIVE: VITAL SIGNS: Temperature is 99.5, pulse of 112, blood pressure is 87/37, pulse oximetry of 97%. HEENT: Normocephalic, atraumatic. The patient is edentulous. The patient has multiple ecchymoses on the head and also on the neck area. The patient is very cachectic, severe malnutrition with wounds on the sacrum. CVS: S1 and S2, tachy. ABDOMEN: Nontender, nondistended. EXTREMITIES: Cachectic. Positive for multiple ecchymoses. No edema present. Sacral ulcers present. LABORATORY VALUES: Today's white count is 21,000, hemoglobin of 10.2, hematocrit of 32.7. Chemistry shows sodium of 150, potassium 3.7, BUN of 76, creatinine of 1.15. The patient's magnesium is 2.4. ASSESSMENT: An 83-year-old with: 1. Sepsis. 2. Hypernatremia. 3. Dehydration. 4. Acute renal failure. 5. History of coronary artery disease. 6. History of cerebrovascular accident. 7. Currently with hypotension with sepsis. 8. History of sacral decubitus ulcers. 9. Debility and severe malnutrition. At this time, the patient will be switched from antibiotic from Levaquin and Flagyl to Zosyn and a dose of vancomycin will be given because of his elevated white count. Blood results show gram-negative variable rods and gram-positive cocci in clusters, so a dose of vancomycin will be given. Also, the patient will be changed to Zosyn 3.375 q.12 hours. ID consult will be done. The patient is sick and will need palliative care. They will discuss this with , and continue conservative therapy at this time. Further recommendation per clinical course. Again, we will discuss with on DNR status. MD TEN SingerJ/MODL /[id number]
--- NOTE | 2019-01-30 08:30 | NUR ---
Pt hypotensive this 121 on the dinamap. Unable to obtain a manual BP, pt is unresponsive but is moaning. Called Dr. Orozco and no breathing noted and is asystole on radiation monitor. Pt is A DNR. Notified ER physician and was pronounced at 0815. Family notified.
[2019-01-30] MEDS ORDERED: PIPER-TAZ 3.375 GM 50 ML IV SCH (09:00)
[2019-01-30] MEDS ORDERED: FEBUXOSTAT 80 MG TAB PO SCH (09:00)
--- NOTE | 2019-01-30 09:46 | NUR ---
ASSESSMENT: Spiritual Distress Pt's overwhelmed with grief. Pt's expressing grief thru words and tears. Pt's niece, family friend and pt's at bedside. Intervention: Provided unhurried calming pastoral presence. Provided prayer. Provided compassionate care. Reminded pt's of how to contact german instructor, if needed. Outcome: No need to follow at this time. BRETT OVERTON Urgent Care Physician Spiritual Care Department O: [phone] Pager: [phone] ([phone] number calling from)
--- NOTE | 2019-01-30 12:00 | NUR ---
Family at the bedside and home here to take pt.
[2019-01-30] MEDS ORDERED: VANCOMYCIN 1GM/NS 250 ML 250 ML IV ONE (13:00)
== END 2019-01-30 12:00 | disposition expired | DRG 871 ==
LOC: ER 15:59 → ERHOLD 17:44 → MED/SURG 22:21 → MED/SURG2 01-28 15:40
PROVIDERS: ADMIT Family Medicine; ATTEND Family Medicine
DX: A41.9 Sepsis, unspecified organism (principal); L89.154 Pressure ulcer of sacral region, stage 4; L89.44 Pressure ulcer of contiguous site of back, buttock and hip, stage 4; E43 Unspecified severe protein-calorie malnutrition; G93.41 Metabolic encephalopathy; J69.0 Pneumonitis due to inhalation of food and vomit; E87.0 Hyperosmolality and hypernatremia; R64 Cachexia; N17.9 Acute kidney failure, unspecified; I48.92 Unspecified atrial flutter; E87.2 Acidosis; I69.354 Hemiplegia and hemiparesis following cerebral infarction affecting left non-dominant side; R57.1 Hypovolemic shock; I95.9 Hypotension, unspecified; Z66 Do not resuscitate; L89.892 Pressure ulcer of other site, stage 2; Z85.89 Personal history of malignant neoplasm of other organs and systems; Z74.01 Bed confinement status; I48.0 Paroxysmal atrial fibrillation; Z79.01 Long term (current) use of anticoagulants; N32.0 Bladder-neck obstruction; I25.10 Atherosclerotic heart disease of native coronary artery without angina pectoris; L89.46 Pressure-induced deep tissue damage of contiguous site of back, buttock and hip
CPT/HCPCS: 36415; 71045; 74176; 76770; 80048; 80053; 81001; 82550; 82553; 82805; 83605; 83690; 83735; 83880; 84100; 84484; 84550; 85025; 85384; 85610; 87040; 87071; 87086; 87186; 87205; 93005; 93306; 94640; 99285; J1650; J7030; J7040; J7070